=== PATIENT | male | born 1955 | race Caucasian/White ===

== ENCOUNTER 2024-12-18 07:30 | Outpatient (CLI) | payer MEDICARE, SELFPAY ==
--- OUTSIDE RECORDS SUMMARY | 2024-12-18 07:36 | XMS_ITS | CONTINUITY OF CARE DOCUMENT ---
Author Name claudia taylor Address Unknown Organization [place] [facility] Address [address] [facility] [place] [address] Phone [phone] Care Team Providers Care Datacap Developer Name Role Phone Krystyna GARCIA, Ruben Crawford Unavailable [phone] TARI GARCIA, GUZMAN Unavailable [phone] TRAI GARCIA, GUZMAN Unavailable [phone] PROBLEMS Condition Status Date Provider Notes Cardiology examination active Ruben hernandez MD Atrial fib paroxysmal active Ruben colin MD Shortness of breath active Ruben Greenwood MD COPD active Ruben Greenwood MD Cardiology examination active Ruben hernanedz MD Hypercholesterolemia active Ruben quesada MD DM - type 2 active Ruben Greenwood MD CHF - systolic active Ruben Greenwood MD HTN essential active Nelsy Scott Tobacco abuse- hx of active Ruben quesada MD Pleural effusion active Ruben Greenwood MD CHF - diastolic active Ruben Greenwood MD ENCOUNTERS Date Type Provider Location Encounter Diag nosis - In-person encounter Office Visit Ruben Greenwood MD [place] [facility] Cardiology examination - In-person encounter Office Visit Ruben Greenwood MD [facility] Hypercholesterolemia - In-person encounter Office Visit Ruben Greenwood MD [place] [facility] - In-person encounter Office Visit Ruben Greenwood MD [facility] CHF - systolicDM - type 2 - In-person encounter Office Visit Ruben Greenwood MD [facility] HTN essential - In-person encounter Office Visit Ruben Greenwood MD [place] [facility] - In-person encounter Office Visit Ruben Greenwood MD [facility] - In-person encounter Office Visit Ruben Greenwood MD [facility] - In-person encounter Office Visit Ruben Greenwood MD [place] [facility] Cardiology examinationCHF - diastolicPleural effusionAtrial fib paroxysmalShortness of breathTobacco abuse- hx ofCOPD VITAL SIGNS Date Observation Value Provider Body Mass Index (Ratio) 25.20 kg/m2 John Greenwood MD blood pressure, diastolic 77 mm[Hg] Mel yanceystephonerci Curry blood pressure, systolic 135 mm[Hg] Melbc stephoneric Curry oxygen saturation, oximetry 95 % Rafaelaeric Curry respiratory rate E&M 14 /min Rafaelaeric Curry pulse rate 77 /min Rafaelaeric Curry weight E&M 191 [lb_av] Rafaela Patricio height E&M 73 [in_i] Rafaelaeric Curry blood pressure, cuff size regular An kannan Patricio Body Mass Index (Ratio) 25.20 kg/m2 [facility] Inhaled O2 2 L/min Claribel crawford RN blood pressure, cuff size regular Au betty Mccoy RN blood pressure, diastolic 78 mm[Hg] Au betty Mccoy RN blood pressure, systolic 132 mm[Hg] Jeff salvador Nadine RN oxygen saturation, oximetry 94 % Claribel Nadine RN respiratory rate E&M 20 /min Claribel Nadine RN pulse rate 57 /min Claribelsalvador Ludwighilda crawford RN weight E&M 191 [lb_av] Claribel Janimelisahilda crawford RN height E&M 73 [in_i] Claribelsalvador Ludwighilda crawford RN Body Mass Index (Ratio) 25.20 kg/m2 Larry Iorfida blood pressure, cuff size regular [facility] blood pressure, diastolic 78 mm[Hg] [facility] blood pressure, systolic 125 mm[Hg] [facility] Inhaled O2 2 L/min [facility] oxygen saturation, oximetry 87 % [facility] respiratory rate E&M 14 /min Trish M iller pulse rate 91 /min [facility] weight E&M 191 [lb_av] [facility] height E&M 73 [in_i] [facility] Body Mass Index (Ratio) 25.33 kg/m2 John Greenwood MD blood pressure, diastolic 85 mm[Hg] Li nkLogic blood pressure, systolic 133 mm[Hg] Ashley kLogic blood pressure, cuff size regular [facility] blood pressure, diastolic 85 mm[Hg] [facility] blood pressure, systolic 133 mm[Hg] [facility], o[facility] 85 % [facility] respiratory rate E&M 16 /min Trish M iller pulse rate 66 /min [facility] weight E&M 192 [lb_av] [facility] height E&M 73 [in_i] [facility] Body Mass Index (Ratio) 25.33 kg/m2 John Greenwood MD blood pressure, cuff size regular Ke rri Gruenenfelder blood pressure, diastolic 80 mm[Hg] Ke rri Gruenenfelder blood pressure, systolic 126 mm[Hg] Ker ri Gruenenfelder Inhaled O2 2 L/min Selam Gruenenfe lder oxygen saturation, oximetry 87 % Selam Gruenenfelder respiratory rate E&M 16 /min Selam G ruenenfelder pulse rate 114 /min Selam Gruenenfe lder weight E&M 192 [lb_av] Selam Gruenenfe lder height E&M 73 [in_i] Selam Gruenenfe lder Body Mass Index (Ratio) 25.06 kg/m2 John Greenwood MD blood pressure, diastolic 94 mm[Hg] Ke rri Gruenenfelder blood pressure, systolic 145 mm[Hg] Ker ri Gruenenfelder blood pressure, cuff size large Ke rri Gruenenfelder Inhaled O2 2 L/min Selam Gruenenfe lder oxygen saturation, oximetry 93 % Selam Gruenenfelder respiratory rate E&M 16 /min Selam G ruenenfelder pulse rate 107 /min Selam Gruenenfe lder weight E&M 190 [lb_av] Selam Gruenenfe lder height E&M 73 [in_i] Selam Gruenenfe lder Body Mass Index (Ratio) 24.67 kg/m2 John Greenwood MD blood pressure, diastolic 110 mm[Hg] [facility] blood pressure, systolic 160 mm[Hg] Sta wade Pathak pulse rate 56 /min Luz Pathak oxygen saturation, oximetry 91 % Luz Pathak respiratory rate E&M 16 /min Luz pappass weight E&M 187 [lb_av] Luz Pathak Inhaled O2 2 L/min Luz Pathak height E&M 73 [in_i] Luz Lawson Body Mass Index (Ratio) 23.40 kg/m2 John Greenwood MD blood pressure, diastolic 56 mm[Hg] Li nkLog blood pressure, systolic 125 mm[Hg] Ashley [facility] blood pressure, cuff size large Duncan farris [place] blood pressure, diastolic 56 mm[Hg] Duncan farris [place] blood pressure, systolic 125 mm[Hg] [facility] oxygen saturation, oximetry 90 % [facility] respiratory rate E&M 14 /min [facility] pulse rate 62 /min [facility] weight E&M 177.4 [lb_av] [facility] height E&M 73 [in_i] [facility] Body Mass Index (Ratio) 22.69 kg/m2 John Greenwood MD blood pressure, cuff size large Ke rri Gruenenfdisha blood pressure, diastolic 80 mm[Hg] Ke rri Gruenenfeldnathan blood pressure, systolic 142 mm[Hg] Fanta ri Phoebe Inhaled O2 2 L/min Selam Rubén lder oxygen saturation, oximetry 94 % Selam Elizabethnfdisha respiratory rate E&M 18 /min Selam song pulse rate 74 /min Selam Tadeonearsalan lder weight E&M 172 [lb_av] Selam Piedranenfe lder height E&M 73 [in_i] Selam Johnsonarsalan lder ALLERGIES Allergy Name Onset Date Reaction Criticality Status METFORMIN syncopy High Criticality active LISINOPRIL angioedemaallerg ic to esequiel lisinopril caused angioedema High Criticality active PCN High Criticality active HISTORY OF MEDICATION USE Medication Status Instructions Dates Provider Indications Com ments simvastatin 40 mg tablet active TAKE 1 TABLET BY MOUTH DAILY Cris Rushing magnesium oxide 400 mg magnesium tablet active Take 1 tablet by mouth twice a day Ruben Greenwood MD furosemide 40 mg tablet active TAKE 1 TABLET BY MOUTH EVERY DAY Brigitte Little metoprolol tartrate 37.5 mg tablet active TAKE 1 TABLET BY MOUTH TWICE DAILY Brigitte Little Kyelrxes-KJ-xjt vexian/apixaban capsule active Claribel Mccoy RN amlodipine 5 mg tablet active TAKE 1 TABLET BY MOUTH EVERY DAY Claribel Mccoy RN Breztri Aerosphere 160-9-4.8 mcg/actuation HFA aerosol inhaler active INHALE 2 PUFFS BY MOUTH TWICE A DAY Claribel Mccoy RN niacin 500 mg tablet active TAKE 1 TABLET BY MOUTH EVERY NIGHT AT BEDTIME Claribel Mccoy RN simvastatin 40 mg tablet completed Take 1 tablet by mouth once a day - Cris Rushing lisinopril 2.5 mg tablet completed Take 1 tablet by mouth once a day - Ruben Greenwood MD furosemide 40 mg tablet completed Take 1 tablet by mouth once a day - Brigitte Little Anoro Ellipta 62.5-25 mcg/actuation blister with device active Ruben Greenwood MD Eliquis 5 mg tablet completed Take 1 tablet by mouth twice a day For AFib - Claribel Mccoy RN OneTouch Delica Plus Lancet 33 gauge 33 gauge completed USE TO TEST BLOOD SUGAR ONCE DAILY - Ruben Greenwood MD metoprolol tartrate 37.5 mg tablet completed Take 1 tablet by mouth twice a day - Toridipak Sideny Stimulant Laxative Plus 8.6-50 mg tablet completed TAKE 2 TABLETS BY MOUTH EVERY NIGHT NEEDED FOR CONSTIPATION - Ruben Greenwood MD Eliquis 5 mg tablet completed - Ruben Greenwood MD furosemide 40 mg tablet completed TAKE 1 TABLET BY MOUTH EVERY DAY - Selam Sandhu OneTouch Ultra Test strip completed TEST DAILY - Ruben Greenwood MD oxycodone 5 mg tablet completed - Ruben Greenwood MD albuterol sulfate 90 mcg/actuation HFA aerosol inhaler completed - Ruben Greenwood MD simvastatin 40 mg tablet completed TAKE 1 TABLET BY MOUTH DAILY - Selam Sandhu meloxicam 7.5 mg tablet completed - Ruben Greenwood MD sildenafil 100 mg tablet completed - Ruben Greenwood MD hydrocodone-esequiel taminophen 10-325 mg tablet completed TAKE 1 TABLET BY MOUTH EVERY 4-6 HOURS NEEDED FOR PAIN - Ruben Greenwood MD amlodipine 5 mg tablet completed - Ruben Greenwood MD clopidogrel 75 mg tablet completed - Ruben Greenwood MD SOCIAL HISTORY Date Observation Value Provider smoking, year quit 2021 Ruben Greenwood MD number of years as a smoker 50 a Ruben Greenwood MD smoking history, tot al pack/day 1 Ruben Greenwood MD cigarette use yes Ruben colin MD smoking status Former smoker Ruben almanza MD smoking, year quit 2021 Ruben Greenwood MD number of years as a smoker 50 a Ruben Greenwood MD smoking history, tot al pack/day 1 Ruben Greenwood MD cigarette use yes Ruben colin MD smoking status Former smoker Ruben almanza MD smoking, year quit 2021 Trish fry number of years as a smoker 50 a Trish Roland smoking history, tot al pack/day 1 [facility] cigarette use yes [facility] smoking status Former smoker Trish Roland social history reviewed E&M revi ewed - no changes required Ruben Greenwood MD social history E&M S moking History: Ken aceves is a former smoker. Ruben Greenwood MD smoking status Former smoker Trish Roland social history E&M S moking History: Ken aceves is a former smoker. Ruben Greenwood MD social history reviewed E&M revi ewed - no changes required Ruben Greenwood MD smoking, year quit 2021 Selam Duncanvernon fatima number of years as a smoker 50 a Selam Phoebe smoking history, tot al pack/day 1 Selam Phoebe cigarette use yes Selam Holly gauthier smoking status Former smoker Selam Duncantyrone banegas social history reviewed E&M revi ewed - no changes required Ruben Greenwood MD social history E&M S moking History: Ken aceves is a former smoker. Ruben Greenwood MD smoking, year quit 2021 Selam Diego kushal number of years as a smoker 50 a Selam Duncannikki smoking history, tot al pack/day 1 Selam Phoebe cigarette use yes Selam gauthier smoking status Former smoker Selam Johnson bassam smoking, year quit 2021 Luz Barron is number of years as a smoker 50 a Luz Pathak smoking history, tot al pack/day 1 Luz Pathak cigarette use yes Luz Pathak smoking status Former smoker Luz Pathak social history E&M S moking History: P yola is a former smoker. Ruben Greenwood MD social history reviewed E&M revi ewed - no changes required Ruben Greenwood MD smoking history, tot al pack/day 1 Alisha Loera cigarette use yes Alisha Loera smoking status Former smoker Alisha Loera number of grandchildren Ruben Greenwood MD social history E&M S moking History: Ken aceves is a former smoker. Ruben Greenwood MD social history reviewed E&M revi ewed - no changes required Ruben Greenwood MD number of years as a smoker 50 a Selam Phoebe smoking history, tot al pack/day 3 ppd Selamshanika Sandhu smoking, year quit 2021 Selam Duncanvernon fatima cigarette use yes Selam Duncanchidi gauthier smoking status Former smoker Selam Johnson bassam INSURANCE PROVIDERS Payer name Policy type / Coverage type [place] red republican ID [facility] Other [facility] Other [employer] [address] (HMO POS) Medicare [id number] ADVANCE DIRECTIVES Name Date DISCUSSED - NO DECISION MADE TREATMENT PLAN Date Name Performer [id number],C,H is LV EF was 45-50%. H is updated medication list for this problem includes: Lisinopril 2.5 Mg Tablet (Lisinopril) ..... Take 1 tablet by mouth once a day Furosemide 40 Mg Tablet (Furosemide) ..... Take 1 tablet by mouth once a day Metoprolol Tartrate 37.5 Mg Tablet (Metoprolol tartrate) ..... Take 1 tablet by mouth twice a day CONCLUSIONS: 1 . Sledom premature ventricular contractions. Septal `bounce` consistent with IVCD or bundle branch block. Normal left v entricular systolic function. Normal left ventricular size. Normal left ventricular wall thickness. Mitral inflow Doppler d emonstrates pseudonormal pattern consistent with diastolic dysfunction. E/E': 7.8 Left ventricular ejection fraction is m easured at 50 %. 2 . Moderate enlargement of right ventricle. 3 . There is non-specific thickening of the mitral valve leaflets. Mild mitral valve regurgitation. E lectronically signed by Ruben Greenwood MD on 03/01/2022 at 11:39 AM Ruben Greenwood MD [id number],S,E cho CONCLUSIONS: 1 . Sledom premature ventricular contractions. Septal `bounce` consistent with IVCD or bundle branch block. Normal left v entricular systolic function. Normal left ventricular size. Normal left ventricular wall thickness. Mitral inflow Doppler d emonstrates pseudonormal pattern consistent with diastolic dysfunction. E/E': 7.8 Left ventricular ejection fraction is m easured at 50 %. 2 . Moderate enlargement of right ventricle. 3 . There is non-specific thickening of the mitral valve leaflets. Mild mitral valve regurgitation. E lectronically signed by Ruben Greenwood MD on 03/01/2022 at 11:39 AM Ruben Greenwood MD [id number],S, S topped smoking N eeds PFTs November 12, 2022 H ad PFTs done o 2 sats okay on 2L, on 6 min walk Conclusions: Although there is severe airway obstruction and a diffusion defect suggesting emphysema, the absence of overinflation i ndicates a concurrent restrictive process which may account for the diffusion defect. The response to bronchodilators indicates a reversible c omponent. P ulmonary Function Diagnosis: S evere Obstructive Airways Disease S evere Diffusion Defect Ruben Greenwood MD [id number],C, H is updated medication list for this problem includes: Furosemide 40 Mg Tablet (Furosemide) ..... Take 1 tablet by mouth once a day Metoprolol Tartrate 37.5 Mg Tablet (Metoprolol tartrate) ..... Take 1 tablet by mouth twice a day CONCLUSIONS: 1 . Sledom premature ventricular contractions. Septal `bounce` consistent with IVCD or bundle branch block. Normal left v entricular systolic function. Normal left ventricular size. Normal left ventricular wall thickness. Mitral inflow Doppler d emonstrates pseudonormal pattern consistent with diastolic dysfunction. E/E': 7.8 Left ventricular ejection fraction is m easured at 50 %. 2 . Moderate enlargement of right ventricle. 3 . There is non-specific thickening of the mitral valve leaflets. Mild mitral valve regurgitation. E lectronically signed by Ruben Greenwood MD on 03/01/2022 at 11:39 AM Ruben Greenwood MD [id number],C, R elzbietain on eliquis 5 BID remains in AFib, failed cardioversion. Currently needs to remain on anticoagulation. February 17, 2022 N SR on EKG today May 20, 2022 A FIB on ekg today, no bleeding on eliquis, says he had to pay $400, has to pay $40 per bottle usually August 13, 2022 R emains on Eliquis no bleeding issues. Currently in AFIB N ovember 2022 C umang in SR. Will see if he can get Librexia-AF. Will give him samples of Eliquis for now. Ruben Greenwood MD [id number],C, H emothorax secondary to thoracentesis, pleural effusion, bilateral, right greater than left. VATS procedure 12/01/21. Hx of COPD, 2-3ppd smoking 50 yrs. Has not f/u with pulmonary will need to schedule May 20, 2022 o n home O2, June 10, 2023 R libia on home O2. Ruben Greenwood MD [id number],C, H is updated medication list for this problem includes: Furosemide 40 Mg Tablet (Furosemide) ..... Take 1 tablet by mouth once a day Metoprolol Tartrate 37.5 Mg Tablet (Metoprolol tartrate) ..... Take 1 tablet by mouth twice a day BP today: 133/85 P rior BP: 126/80 (11/12/2022) Ruben Greenwood MD [id number],C, N eeds PFTs done since he is on home O2. November 12, 2022 S josé miguel pulmonary, started on new inahler, Luis Felipe, pending CT for lung cance4 r Ruben Greenwood MD [id number],C,D iscussion of benefits for remote patient monitoring took place. Patient gives consent for remote monitoring of physiologic parameters including, but not limited to, weight, blood pressure, pulse oximetry, respiratory flow rate. B P today: 126/80 P rior BP: 145/94 (08/13/2022) His updated medication list for this problem includes: Furosemide 40 Mg Tablet (Furosemide) ..... Take 1 tablet by mouth every day Metoprolol Tartrate 37.5 Mg Tablet (Metoprolol tartrate) ..... Take 1 tablet by mouth twice a day Ruben Greenwood MD [id number],C, H emothorax secondary to thoracentesis, pleural effusion, bilateral, right greater than left. VATS procedure 12/01/21. Hx of COPD, 2-3ppd smoking 50 yrs. Has not f/u with pulmonary will need to schedule May 20, 2022 o n home O2, Ruben Greenwood MD [id number],S,C ONCLUSIONS: 1 . Sledom premature ventricular contractions. Septal `bounce` consistent with IVCD or bundle branch block. Normal left v entricular systolic function. Normal left ventricular size. Normal left ventricular wall thickness. Mitral inflow Doppler d emonstrates pseudonormal pattern consistent with diastolic dysfunction. E/E': 7.8 Left ventricular ejection fraction is m easured at 50 %. 2 . Moderate enlargement of right ventricle. 3 . There is non-specific thickening of the mitral valve leaflets. Mild mitral valve regurgitation. E lectronically signed by Ruben Greenwood MD on 03/01/2022 at 11:39 AM Ruben Greenwood MD [id number],S, N eeds PFTs done since he is on home O2. November 12, 2022 S aw pulmonary, started on new Luis Felipe daily, pending CT for lung cance4 r Ruben Greenwood MD [id number],C, S topped smoking N eeds PFTs November 12, 2022 H ad PFTs done o 2 sats okay on 2L, on 6 min walk Conclusions: Although there is severe airway obstruction and a diffusion defect suggesting emphysema, the absence of overinflation i ndicates a concurrent restrictive process which may account for the diffusion defect. The response to bronchodilators indicates a reversible c omponent. P ulmonary Function Diagnosis: S evere Obstructive Airways Disease S evere Diffusion Defect Ruben Greenwood MD [id number],C, H emothorax secondary to thoracentesis, pleural effusion, bilateral, right greater than left. VATS procedure 12/01/21. Hx of COPD, 2-3ppd smoking 50 yrs. Has not f/u with pulmonary will need to schedule May 20, 2022 o n home O2, Ruben Greenwood MD [id number],C, M ost likely related to his pleural effusion and hx of smoking 3ppd x50yrs. Currently has stopped for few weeks. Requires home O2. bora patel echo May 20, 2022 s ees pul[facility]ary at [facility] CONCLUSIONS: 1 . Sledom premature ventricular contractions. Septal `bounce` consistent with IVCD or bundle branch block. Normal left v entricular systolic function. Normal left ventricular size. Normal left ventricular wall thickness. Mitral inflow Doppler d emonstrates pseudonormal pattern consistent with diastolic dysfunction. E/E': 7.8 Left ventricular ejection fraction is m easured at 50 %. 2 . Moderate enlargement of right ventricle. 3 . There is non-specific thickening of the mitral valve leaflets. Mild mitral valve regurgitation. & #13; E lectronically signed by Ruben Greenwood MD on 03/01/2022 at 11:39 AM J anuary 2022 C dianek PFTs Ruben Greenwood MD [id number],C, R emain on eliquis 5 BID remains in AFib, failed cardioversion. Currently needs to remain on anticoagulation. February 17, 2022 N SR on EKG today May 20, 2022 A FIB on ekg today, no bleeding on eliquis, says he had to pay $400, has to pay $40 per bottle usually August 13, 2022 R emains on Eliquis no bleeding issues. Currently in AFIB Ruben Greenwood MD [id number],S,S topped smoking N eeds PFTs Ruben Greenwood MD [id number],C, N eeds PFTs done since he is on home O2. Ruben Greenwood MD [id number],C,D iscussion of benefits for remote patient monitoring took place. Patient gives consent for remote monitoring of physiologic parameters including, but not limited to, weight, blood pressure, pulse oximetry, respiratory flow rate. a llergic to esequiel lisinopril caused angioedema Ruben Greenwood MD [id number],C, M ost likely related to his pleural effusion and hx of smoking 3ppd x50yrs. Currently has stopped for few weeks. Requires home O2. bora patel echo May 20, 2022 s jenna pulomonary at [facility] CONCLUSIONS: 1 . Sledom premature ventricular contractions. Septal `bounce` consistent with IVCD or bundle branch block. Normal left v entricular systolic function. Normal left ventricular size. Normal left ventricular wall thickness. Mitral inflow Doppler d emonstrates pseudonormal pattern consistent with diastolic dysfunction. E/E': 7.8 Left ventricular ejection fraction is m easured at 50 %. 2 . Moderate enlargement of right ventricle. 3 . There is non-specific thickening of the mitral valve leaflets. Mild mitral valve regurgitation. & #13; E lectronically signed by Ruben Greenwood MD on 03/01/2022 at 11:39 AM Ruben Greenwood MD [id number],C, H emothorax secondary to thoracentesis, pleural effusion, bilateral, right greater than left. VATS procedure 12/01/21. Hx of COPD, 2-3ppd smoking 50 yrs. Has not f/u with pulmonary will need to schedule May 20, 2022 o n home O2, Ruben Greenwood MD [id number],C, allergic to esequiel lisinopril caused angioedema Ruben Greenwood MD [id number],C, R emain on eliquis 5 BID remains in AFib, failed cardioversion. Currently needs to remain on anticoagulation. February 17, 2022 N SR on EKG today May 20, 2022 A FIB on ekg today, no bleeding on eliquis, says he had to pay $400, has to pay $40 per bottle usually Ruben Greenwood MD [id number],C,C ONCLUSIONS: 1 . Sledom premature ventricular contractions. Septal `bounce` consistent with IVCD or bundle branch block. Normal left v entricular systolic function. Normal left ventricular size. Normal left ventricular wall thickness. Mitral inflow Doppler d emonstrates pseudonormal pattern consistent with diastolic dysfunction. E/E': 7.8 Left ventricular ejection fraction is m easured at 50 %. 2 . Moderate enlargement of right ventricle. 3 . There is non-specific thickening of the mitral valve leaflets. Mild mitral valve regurgitation. E lectronically signed by Ruben Greenwood MD on 03/01/2022 at 11:39 AM Ruben Greenwood MD [id number],S,check echo Sa richy Greenwood MD [id number],C,a llergic to esequiel lisinopril caused angioedema N ormal LV function on echo. EF 55%, mild LAE, mild RUIZ, no significant MR or TR. Ruben Greenwodo MD [id number],C, R emain on eliquis 5 BID remains in AFib, failed cardioversion. Currently needs to remain on anticoagulation. February 17, 2022 N SR on EKG today Ruben Greenwood MD [id number],C, H emothorax secondary to thoracentesis, pleural effusion, bilateral, right greater than left. VATS procedure 12/01/21. Hx of COPD, 2-3ppd smoking 50 yrs. Has not f/u with pulmonary will need to schedule Ruben Greenwood MD [id number],C, N eeds PFTs done since he is on home O2. Ruben Greenwood MD [id number],C, M ost likely related to his pleural effusion and hx of smoking 3ppd x50yrs. Currently has stopped for few weeks. Requires home O2. c heck echo Ruben Greenwood MD [id number],S,N eeds PFTs done since he is on home O2. O rders: 9 9205 HIGH 60-74 min (CPT-46988) F VC - 77875 (97764) F RC - 86575 (02848) D LCO - 14679 (04996) A mbulatory Oximetry (CPT-51055) [address] test (CPT-39127) C XR- PA/Lat (CPT-17181) Ruben Greenwood MD [id number],S,R emain on eliquis 5 BID remains in AFib, failed cardioversion. Currently needs to remain on anticoagulation. Ruben Greenwood MD [id number],S,M ost likely related to his pleural effusion and hx of smoking 3ppd x50yrs. Currently has stopped for few weeks. Requires home O2. Ruben Greenwood MD [id number],C,N ormal LV function on echo. EF 55%, mild LAE, mild RUIZ, no significant MR or TR. Ruben Greenwood MD [id number],C,H emothorax secondary to thoracentesis, pleural effusion, bilateral, right greater than left. VATS procedure 12/01/21. Hx of COPD, 2-3ppd smoking 50 yrs. Ruben Greenwood MD Cardiology:CONCLUSIO NS: 1 . Technically difficult study. Unable to determine segmental wall motion abnormalities. Hyperdynamic left ventricular f unction. Normal left ventricular systolic function. Normal left ventricular size. Normal left ventricular wall thickness. Normal l eft ventricular diastolic function. E/E': 7.3. Left ventricular ejection fraction is measured at 70 %. 2 . Normal right ventricular size. Normal right ventricular systolic function. 3 . Normal appearing tricuspid valve leaflets. There is mild tricuspid regurgitation. IVC is normal in size with normal r espiratory response. Estimated peak pulmonary artery systolic pressure is 24.0 mmHg. Unable to adequately assess the R VSP. E lectronically signed by Ruben Greenwood MD on 02/13/2024 at 3:27 PM Ruben Greenwood MD Cardiology: H emothorax secondary to thoracentesis, pleural effusion, bilateral, right greater than left. VATS procedure 12/01/21. Hx of COPD, 2-3ppd smoking 50 yrs. Has not f/u with pulmonary will need to schedule May 20, 2022 o n home O2, June 10, 2023 R emains on home O2. July 06, 2023 R emains on home O2. J [address] scan done, seeing DR CONNOR Greenwood MD Cardiology: R emain on eliquis 5 BID remains in AFib, failed cardioversion. Currently needs to remain on anticoagulation. February 17, 2022 N SR on EKG today May 20, 2022 A FIB on ekg today, no bleeding on eliquis, says he had to pay $400, has to pay $40 per bottle usually August 13, 2022 R emains on Eliquis no bleeding issues. Currently in AFIB June 10, 2023 Bora heck in SR. Will see if he can get Librexia-AF. Will give him samples of Eliquis for now. July 06, 2023 I n SR today. Not able to get Eliquis. Needs to enroll in Librexa January 06, 2024 N SR enrolled in librexia, no bleeding SR with PVC noted on EKG. most likely need mag Oxide. 400 BID This visit has been a part of the consistent, comprehensive, and ongoing management of the chronic medical condition(s) listed above for the patient. enrolled in librexia, no bleeding Ruben Greenwood MD Cardiology: N eeds PFTs done since he is on home O2. November 12, 2022 S aw pulmonary, started on new joaquínhler, Simonai, pending CT for lung cance4 r July 06, [address] Simental July 06, 2024 O n home O2 2L Ruben Greenwood MD Cardiology:CONCLUSIO NS: 1 . Technically difficult study. Unable to determine segmental wall motion abnormalities. Hyperdynamic left ventricular f unction. Normal left ventricular systolic function. Normal left ventricular size. Normal left ventricular wall thickness. Normal l eft ventricular diastolic function. E/E': 7.3. Left ventricular ejection fraction is measured at 70 %. 2 . Normal right ventricular size. Normal right ventricular systolic function. 3 . Normal appearing tricuspid valve leaflets. There is mild tricuspid regurgitation. IVC is normal in size with normal r espiratory response. Estimated peak pulmonary artery systolic pressure is 24.0 mmHg. Unable to adequately assess the R VS T his visit has been a part of the consistent, comprehensive, and ongoing management of the chronic medical condition(s) listed above for the patient. . Ruben Greenwood MD Cardiology:Most rece nt shows 70% H is updated medication list for this problem includes: Furosemide 40 Mg Tablet (Furosemide) ..... Take 1 tablet by mouth every day Metoprolol Tartrate 37.5 Mg Tablet (Metoprolol tartrate) ..... Take 1 tablet by mouth twice daily Amlodipine 5 Mg Tablet (Amlodipine) ..... Take 1 tablet by mouth every day T his visit has been a part of the consistent, comprehensive, and ongoing management of the chronic medical condition(s) listed above for the patient. Ruben Greenwood MD Cardiology: H is updated medication list for this problem includes: Niacin 500 Mg Tablet (Niacin) ..... Take 1 tablet by mouth every night at bedtime Simvastatin 40 Mg Tablet (Simvastatin) ..... Take 1 tablet by mouth once a day Ruben Greenwood MD Cardiology: M ost likely related to his pleural effusion and hx of smoking 3ppd x50yrs. Currently has stopped for few weeks. Requires home O2. c heck echo May 20, 2022 s ees pulomonary at [facility] CONCLUSIONS: 1 . Sledom premature ventricular contractions. Septal `bounce` consistent with IVCD or bundle branch block. Normal left v entricular systolic function. Normal left ventricular size. Normal left ventricular wall thickness. Mitral inflow Doppler d emonstrates pseudonormal pattern consistent with diastolic dysfunction. E/E': 7.8 Left ventricular ejection fraction is m easured at 50 %. 2 . Moderate enlargement of right ventricle. 3 . There is non-specific thickening of the mitral valve leaflets. Mild mitral valve regurgitation. E lectronically signed by Ruben Greenwood MD on 03/01/2022 at 11:39 AM J anuary 2022 C heck PFTs J une [address] scan done, seeing DR CONNOR Greenwood MD Cardiology: H emothorax secondary to thoracentesis, pleural effusion, bilateral, right greater than left. VATS procedure 12/01/21. Hx of COPD, 2-3ppd smoking 50 yrs. Has not f/u with pulmonary will need to schedule May 20, 2022 o n home O2, June 10, 2023 R emains on home O2. July 06, 2023 R emains on home O2. J une [address] scan done, seeing DR CONNOR Greenwood MD Cardiology: H is updated medication list for this problem includes: Amlodipine 5 Mg Tablet (Amlodipine) ..... Take 1 tablet by mouth every day Furosemide 40 Mg Tablet (Furosemide) ..... Take 1 tablet by mouth once a day Metoprolol Tartrate 37.5 Mg Tablet (Metoprolol tartrate) ..... Take 1 tablet by mouth twice a day BP today: 132/78 P rior BP: 125/78 (07/06/2023) Ruben Greenwood MD Cardiology: Jaime ivan on eliquis 5 BID remains in AFib, failed cardioversion. Currently needs to remain on anticoagulation. February 17, 2022 N SR on EKG today May 20, 2022 A FIB on ekg today, no bleeding on eliquis, says he had to pay $400, has to pay $40 per bottle usually August 13, 2022 R emains on Eliquis no bleeding issues. Currently in AFIB June 10, 2023 C urrently in SR. Will see if he can get Librexia-AF. Will give him samples of Eliquis for now. July 06, 2023 I n SR today. Not able to get Eliquis. Needs to enroll in Librexa January 06, 2024 N SR enrolled in librexia, no bleeding Ruben Greenwood MD Cardiology: H is LV EF was 45-50%. C ONCLUSIONS: 1 . Sledom premature ventricular contractions. Septal `bounce` consistent with IVCD or bundle branch block. Normal left v entricular systolic function. Normal left ventricular size. Normal left ventricular wall thickness. Mitral inflow Doppler d emonstrates pseudonormal pattern consistent with diastolic dysfunction. E/E': 7.8 Left ventricular ejection fraction is m easured at 50 %. 2 . Moderate enlargement of right ventricle. 3 . There is non-specific thickening of the mitral valve leaflets. Mild mitral valve regurgitation. E lectronically signed by Ruben Greenwood MD on 03/01/2022 at 11:39 AM January 06, 2024 m ild CMP, will need to recheck echo since he has afib to see if decline in EF Ruben Greenwood MD Cardiology: H emothorax secondary to thoracentesis, pleural effusion, bilateral, right greater than left. VATS procedure 12/01/21. Hx of COPD, 2-3ppd smoking 50 yrs. Has not f/u with pulmonary will need to schedule May 20, 2022 o n home O2, June 10, 2023 R emains on home O2. July 06, 2023 R emains on home O2. Ruben Greenwood MD Cardiology: S topped smoking N eeds PFTs November 12, 2022 H ad PFTs done o 2 sats okay on 2L, on 6 min walk Conclusions: Although there is severe airway obstruction and a diffusion defect suggesting emphysema, the absence of overinflation i ndicates a concurrent restrictive process which may account for the diffusion defect. The response to bronchodilators indicates a reversible c omponent. P ulmonary Function Diagnosis: S evere Obstructive Airways Disease S evere Diffusion Defect July 06, 2023 N ot smoking Ruben Greenwood MD Cardiology: H is updated medication list for this problem includes: Furosemide 40 Mg Tablet (Furosemide) ..... Take 1 tablet by mouth once a day Metoprolol Tartrate 37.5 Mg Tablet (Metoprolol tartrate) ..... Take 1 tablet by mouth twice a day CONCLUSIONS: 1 . Sledom premature ventricular contractions. Septal `bounce` consistent with IVCD or bundle branch block. Normal left v entricular systolic function. Normal left ventricular size. Normal left ventricular wall thickness. Mitral inflow Doppler d emonstrates pseudonormal pattern consistent with diastolic dysfunction. E/E': 7.8 Left ventricular ejection fraction is m easured at 50 %. 2 . Moderate enlargement of right ventricle. 3 . There is non-specific thickening of the mitral valve leaflets. Mild mitral valve regurgitation. E lectronically signed by Ruben Greenwood MD on 03/01/2022 at 11:39 AM Ruben Greenwood MD Cardiology: R moncho on eliquis 5 BID remains in AFib, failed cardioversion. Currently needs to remain on anticoagulation. February 17, 2022 N SR on EKG today May 20, 2022 A FIB on ekg today, no bleeding on eliquis, says he had to pay $400, has to pay $40 per bottle usually August 13, 2022 R libia on Eliquis no bleeding issues. Currently in AFIB June 10, 2023 Bora heck in SR. Will see if he can get Librexia-AF. Will give him samples of Eliquis for now. July 06, 2023 I n SR today. Not able to get Eliquis. Needs to enroll in Librexa Ruben Greenwood MD Cardiology: N eeds PFTs done since he is on home O2. November 12, 2022 S aw pulmonary, started on Luis Felipe luna, pending CT for lung cance4 r July 06, [address] Connor Greenwood MD Cardiology:His LV EF was 45-50%. H is updated medication list for this problem includes: Lisinopril 2.5 Mg Tablet (Lisinopril) ..... Take 1 tablet by mouth once a day Furosemide 40 Mg Tablet (Furosemide) ..... Take 1 tablet by mouth once a day Metoprolol Tartrate 37.5 Mg Tablet (Metoprolol tartrate) ..... Take 1 tablet by mouth twice a day CONCLUSIONS: 1 . Sledom premature ventricular contractions. Septal `bounce` consistent with IVCD or bundle branch block. Normal left v entricular systolic function. Normal left ventricular size. Normal left ventricular wall thickness. Mitral inflow Doppler d emonstrates pseudonormal pattern consistent with diastolic dysfunction. E/E': 7.8 Left ventricular ejection fraction is m easured at 50 %. 2 . Moderate enlargement of right ventricle. 3 . There is non-specific thickening of the mitral valve leaflets. Mild mitral valve regurgitation. E lectronically signed by Ruben Greenwood MD on 03/01/2022 at 11:39 AM Ruben Greenwood MD Cardiology:Echo CONC LUSIONS: 1 . Sledom premature ventricular contractions. Septal `bounce` consistent with IVCD or bundle branch block. Normal left v entricular systolic function. Normal left ventricular size. Normal left ventricular wall thickness. Mitral inflow Doppler d emonstrates pseudonormal pattern consistent with diastolic dysfunction. E/E': 7.8 Left ventricular ejection fraction is m easured at 50 %. 2 . Moderate enlargement of right ventricle. 3 . There is non-specific thickening of the mitral valve leaflets. Mild mitral valve regurgitation. E lectronically signed by Ruben Greenwood MD on 03/01/2022 at 11:39 AM Ruben Greenwood MD Cardiology: S topped smoking N eeds PFTs November 12, 2022 H ad PFTs done o 2 sats okay on 2L, on 6 min walk Conclusions: Although there is severe airway obstruction and a diffusion defect suggesting emphysema, the absence of overinflation i ndicates a concurrent restrictive process which may account for the diffusion defect. The response to bronchodilators indicates a reversible c omponent. P ulmonary Function Diagnosis: S evere Obstructive Airways Disease S evere Diffusion Defect Ruben Greenwood MD Cardiology: H is updated medication list for this problem includes: Furosemide 40 Mg Tablet (Furosemide) ..... Take 1 tablet by mouth once a day Metoprolol Tartrate 37.5 Mg Tablet (Metoprolol tartrate) ..... Take 1 tablet by mouth twice a day CONCLUSIONS: 1 . Sledom premature ventricular contractions. Septal `bounce` consistent with IVCD or bundle branch block. Normal left v entricular systolic function. Normal left ventricular size. Normal left ventricular wall thickness. Mitral inflow Doppler d emonstrates pseudonormal pattern consistent with diastolic dysfunction. E/E': 7.8 Left ventricular ejection fraction is m easured at 50 %. 2 . Moderate enlargement of right ventricle. 3 . There is non-specific thickening of the mitral valve leaflets. Mild mitral valve regurgitation. E lectronically signed by Ruben Greenwood MD on 03/01/2022 at 11:39 AM Ruben Greenwood MD Cardiology: R moncho on eliquis 5 BID remains in AFib, failed cardioversion. Currently needs to remain on anticoagulation. February 17, 2022 N SR on EKG today May 20, 2022 A FIB on ekg today, no bleeding on eliquis, says he had to pay $400, has to pay $40 per bottle usually August 13, 2022 R emains on Eliquis no bleeding issues. Currently in AFIB June 10, 2023 Bora heck in SR. Will see if he can get Librexia-AF. Will give him samples of Eliquis for now. Ruben Greenwood MD Cardiology: H emothorax secondary to thoracentesis, pleural effusion, bilateral, right greater than left. VATS procedure 12/01/21. Hx of COPD, 2-3ppd smoking 50 yrs. Has not f/u with pulmonary will need to schedule May 20, 2022 o n home O2, June 10, 2023 R emains on home O2. Ruben Greenwood MD Cardiology: H is updated medication list for this problem includes: Furosemide 40 Mg Tablet (Furosemide) ..... Take 1 tablet by mouth once a day Metoprolol Tartrate 37.5 Mg Tablet (Metoprolol tartrate) ..... Take 1 tablet by mouth twice a day BP today: 133/85 P rior BP: 126/80 (11/12/2022) Ruben Greenwood MD Cardiology: N eeds PFTs done since he is on home O2. November 12, 2022 S aw pulmonary, started on new joaquínhler, Yaminiztri, pending CT for lung cance4 r Ruben Greenwood MD Cardiology:Discussio n of benefits for remote patient monitoring took place. Patient gives consent for remote monitoring of physiologic parameters including, but not limited to, weight, blood pressure, pulse oximetry, respiratory flow rate. B P today: 126/80 P rior BP: 145/94 (08/13/2022) His updated medication list for this problem includes: Furosemide 40 Mg Tablet (Furosemide) ..... Take 1 tablet by mouth every day Metoprolol Tartrate 37.5 Mg Tablet (Metoprolol tartrate) ..... Take 1 tablet by mouth twice a day Ruben Greenwood MD Cardiology: H emothorax secondary to thoracentesis, pleural effusion, bilateral, right greater than left. VATS procedure 12/01/21. Hx of COPD, 2-3ppd smoking 50 yrs. Has not f/u with pulmonary will need to schedule May 20, 2022 o n home O2, Ruben Greenwood MD Cardiology:CONCLUSIO NS: 1 . Sledom premature ventricular contractions. Septal `bounce` consistent with IVCD or bundle branch block. Normal left v entricular systolic function. Normal left ventricular size. Normal left ventricular wall thickness. Mitral inflow Doppler d emonstrates pseudonormal pattern consistent with diastolic dysfunction. E/E': 7.8 Left ventricular ejection fraction is measured at 50 %. 2 . Moderate enlargement of right ventricle. 3 . There is non-specific thickening of the mitral valve leaflets. Mild mitral valve regurgitation. E lectronically signed by Ruben Greenwood MD on 03/01/2022 at 11:39 AM Ruben Greenwood MD Cardiology: N eeds PFTs done since he is on home O2. November 12, 2022 S aw pulmonary, started on new jesúser, Yaminiztri, pending CT for lung cance4 r Ruben Greenwood MD Cardiology: S topped smoking N eeds PFTs November 12, 2022 H ad PFTs done o 2 sats okay on 2L, on 6 min walk Conclusions: Although there is severe airway obstruction and a diffusion defect suggesting emphysema, the absence of overinflation i ndicates a concurrent restrictive process which may account for the diffusion defect. The response to bronchodilators indicates a reversible c omponent. P ulmonary Function Diagnosis: S evere Obstructive Airways Disease S evere Diffusion Defect Ruben Greenwood MD Cardiology: H emothorax secondary to thoracentesis, pleural effusion, bilateral, right greater than left. VATS procedure 12/01/21. Hx of COPD, 2-3ppd smoking 50 yrs. Has not f/u with pulmonary will need to schedule May 20, 2022 o n home O2, Ruben Greenwood MD Cardiology: M ost likely related to his pleural effusion and hx of smoking 3ppd x50yrs. Currently has stopped for few weeks. Requires home O2. bora patel echo May 20, 2022 s jenna pulomonary at [facility] CONCLUSIONS: 1 . Sledom premature ventricular contractions. Septal `bounce` consistent with IVCD or bundle branch block. Normal left v entricular systolic function. Normal left ventricular size. Normal left ventricular wall thickness. Mitral inflow Doppler d emonstrates pseudonormal pattern consistent with diastolic dysfunction. E/E': 7.8 Left ventricular ejection fraction is m easured at 50 %. 2 . Moderate enlargement of right ventricle. 3 . There is non-specific thickening of the mitral valve leaflets. Mild mitral valve regurgitation. E lectronically signed by Ruben Greenwood MD on 03/01/2022 at 11:39 AM J anuary 2022 Bora patel PFTs Ruben Greenwood MD Cardiology: R moncho on eliquis 5 BID remains in AFib, failed cardioversion. Currently needs to remain on anticoagulation. February 17, 2022 N SR on EKG today May 20, 2022 A FIB on ekg today, no bleeding on eliquis, says he had to pay $400, has to pay $40 per bottle usually August 13, 2022 R emains on Eliquis no bleeding issues. Currently in AFIB Ruben Greenwood MD Cardiology:Stopped s moking N eeds PFTs Ruben Greenwood MD Cardiology: N eeds PFTs done since he is on home O2. Ruben Greenwood MD Cardiology:Discussio n of benefits for remote patient monitoring took place. Patient gives consent for remote monitoring of physiologic parameters including, but not limited to, weight, blood pressure, pulse oximetry, respiratory flow rate. a llergic to esequiel lisinopril caused angioedema Ruben Greenwood MD Cardiology: M ost likely related to his pleural effusion and hx of smoking 3ppd x50yrs. Currently has stopped for few weeks. [facility] s jenna pulomonary at [facility] CONCLUSIONS: 1 . Sledom premature ventricular contractions. Septal `bounce` consistent with IVCD or bundle branch block. Normal left v entricular systolic function. Normal left ventricular size. Normal left ventricular wall thickness. Mitral inflow Doppler d emonstrates pseudonormal pattern consistent with diastolic dysfunction. E/E': 7.8 Left ventricular ejection fraction is m easured at 50 %. 2 . Moderate enlargement of right ventricle. 3 . There is non-specific thickening of the mitral valve leaflets. Mild mitral valve regurgitation. E lectronically signed by Ruben Greenwood MD on 03/01/2022 at 11:39 AM Ruben Greenwood MD Cardiology: H emothorax secondary to thoracentesis, pleural effusion, bilateral, right greater than left. VATS procedure 12/01/21. Hx of COPD, 2-3ppd smoking 50 yrs. Has not f/u with pulmonary will need to schedule May 20, 2022 o n home O2, Ruben Greenwood MD Cardiology: allergic to esequiel lisinopril caused angioedema Ruben Greenwood MD Cardiology: Jaime ivan on eliquis 5 BID remains in AFib, failed cardioversion. Currently needs to remain on anticoagulation. February 17, 2022 N SR on EKG today May 20, 2022 A FIB on ekg today, no bleeding on eliquis, says he had to pay $400, has to pay $40 per bottle usually Ruben Greenwood MD Cardiology:CONCLUSIO NS: 1 . Sledom premature ventricular contractions. Septal `bounce` consistent with IVCD or bundle branch block. Normal left v entricular systolic function. Normal left ventricular size. Normal left ventricular wall thickness. Mitral inflow Doppler d emonstrates pseudonormal pattern consistent with diastolic dysfunction. E/E': 7.8 Left ventricular ejection fraction is measured at 50 %. 2 . Moderate enlargement of right ventricle. 3 . There is non-specific thickening of the mitral valve leaflets. Mild mitral valve regurgitation. E lectronically signed by Ruben Greenwood MD on 03/01/2022 at 11:39 AM Ruben Greenwood MD Cardiology:check echo Ruben Greenwood MD Cardiology:allergic to esequiel lisinopril caused angioedema N ormal LV function on echo. EF 55%, mild LAE, mild RUIZ, no significant MR or TR. Ruben Greenwood MD Cardiology: R moncho on eliquis 5 BID remains in AFib, failed cardioversion. Currently needs to remain on anticoagulation. February 17, 2022 N SR on EKG today Ruben Greenwood MD Cardiology: H emothorax secondary to thoracentesis, pleural effusion, bilateral, right greater than left. VATS procedure 12/01/21. Hx of COPD, 2-3ppd smoking 50 yrs. Has not f/u with pulmonary will need to schedule Ruben Greenwood MD Cardiology: N eeds PFTs done since he is on home O2. Ruben Greenwood MD Cardiology: M ost likely related to his pleural effusion and hx of smoking 3ppd x50yrs. Currently has stopped for few weeks. Requires home O2. c heck echo Ruben Greenwood MD Cardiology:Needs PFT s done since he is on home O2. O rders: 9 9205 HIGH 60-74 min (CPT-39631) F VC - 50199 (12444) F RC - 56532 (95420) D LCO - 46858 (48855) A mbulatory Oximetry (CPT-00844) 6 minute walk test (CPT-91356) C XR- PA/Lat (CPT-60948) Ruben Greenwood MD Cardiology:Remain on eliquis 5 BID remains in AFib, failed cardioversion. Currently needs to remain on anticoagulation. Ruben Greenwood MD Cardiology:Most like ly related to his pleural effusion and hx of smoking 3ppd x50yrs. Currently has stopped for few weeks. Requires home O2. Ruben Greenwood MD Cardiology:Normal LV function on echo. EF 55%, mild LAE, mild RUIZ, no significant MR or TR. Ruben Greenwood MD Cardiology:Hemothora x secondary to thoracentesis, pleural effusion, bilateral, right greater than left. VATS procedure 12/01/21. Hx of COPD, 2-3ppd smoking 50 yrs. Ruben Greenwood MD Date Name Monitor - Telemetry (Mobile Cardiac) MAGNESIUM COMPREHENSIVE METABO LIC PANEL, W/EGFR Holter Monitor 24 Hr Complete Echo EKG 6 minute walk test Ambulatory Oximetry DLCO - 87306 FRC - 35920 FVC - 16805 HEPATIC FUNCTION MONTANO EL LIPID PANEL RPM (remote patient monitoring) Holter Monitor 48 hr Complete Echo DLCO - 62766 FRC - 70725 FVC - 30997 Holter Monitor 48 hr CXR- PA/Lat 6 minute walk test Ambulatory Oximetry DLCO - 70312 FRC - 02658 FVC - 04715 HISTORY OF PROCEDURES Procedure Date Procedure Name Provider Procedure Notes S tatus Complex e/m visit add on Ruben Greenwood MD completed EKG Ruben Greenwood MD compl eted EKG Ruben Greenwood MD compl eted EKG Ruben Greenwood MD compl eted Ambulatory Oximetry Ruben Greenwood MD completed Spirometry Ruben Greenwood MD compl eted FVC / MVV with bronchodilator - 86392 Ruben Greenwood MD completed BLOOD COUNT HEMOGLOBIN Ruben Greenwood MD completed FRC - 90298 Ruben Greenwood MD comp leted SpO2 w/o 6min walk/titration Ruben Greenwood MD completed SVC - 82240 Ruben Greenwood MD comp leted DLCO - 78820 Ruben Greenwood MD com pleted 6 minute walk test Ruben Greenwood MD completed EKG Ruben Greenwood MD compl eted EKG Ruben Greenwood MD compl eted EKG Ruben Greenwood MD compl eted EKG Ruben Greenwood MD compl eted
--- OUTSIDE RECORDS SUMMARY | 2024-12-18 07:36 | XMS_ITS | Data Portability ---
Author Organization [place] - [facility], Main Office Address [address] [place] [address] Assessment Encounter Date Assessment Date Assessment LastModified by Organization Details LastModified Time 10/18/2023 10/18/2023 Assessment: Nicotine smoke: 1.5 ppd [id number] =78 pack years Severe COPD, declined pulm rehab LLL nodule IgE 1033 IU/mL CHF EF 50% Plan: The following were reviewed and explained to the patient: [facility] hospitalization 11/10/21 - 11/13/21 COPD exacerbation 6MW 09/09/22 2 Lpm exertional O2 PFT 09/09/22 FEV1 1.38 L (37%), BD 180 mL = 15%, TLC 6.15 L (80%), RV 3.71 L (145%), DLCO 22%, DLCO/VA 35% 2-D echocardiogram 02/25/22 EF 50%, mild MR, mod LAE, mod RVE, mild RUIZ Chest CT 11/11/21 R>L effusion with R>L atelectasis, cardiomegaly, pulm HTN Chest CT 11/24/22 4 mm LLL nodule, pulm HTN Lab data 11/11/22 elevated BNP, high IgE, multiple environmental allergies Oxygen saturation at rest: 1. 85% on room air 2. 88% on 1 Lpm by NC 3. 91% on 2 Lpm by NC Patient has COPD, hence the medical need for home oxygen therapy. Patient is benefiting from oxygen therapy as this helps increase the patient's activities of daily living. There is a continued need for oxygen as COPD is not reversible. The [place] [employer] recommends annual screening for lung cancer with low-dose computed tomography (LDCT) for people aged 50 to 80 years old who smoke or formerly smoked and have a 20-year or greater pack-year history. Screening is no longer discontinued even when a person has not smoked for [address] and PFT one week before return Continue albuterol HFA as needed. Continue Breztri 160/9/4.8 mcg 2 puffs BID. Gargle after use. The patient does not know how to accurately administer the inhalers. Today, the patient was shown how to take these medications. The proper technique for delivering these medications was instructed. The patient expressed a clear understanding and demonstrated back how to use these medications. Without the proper technique, the patient will not reap the benefits of these medications as the contents will not reach the lower airways as intended to be. Patient stated that his albuterol is only $6 and if the Breztri is at $45 or more, he will not fill the prescription. Pulmonary rehabilitation may be included in the management of patients with chronic obstructive pulmonary disease (COPD). For respiratory diseases different from COPD, there have been no formal statements regarding patient selection. Pulmonary rehabilitation consists of assessment, exercise, education, and emotional support. It covers the goals of rehabilitation, the techniques of breathing, the necessity of nicotine cessation, the strategies to deal with panic attacks, the rationale of pulmonary medications, and the importance of nutrition. As the patient learns to live with his pulmonary condition through exercise and education, the patient will regain confidence with his abilities and feel improvement in his overall quality of life. The patient's FEV1 is 37%. The patient was enrolled in pulmonary rehabilitation but declined. General concepts of pulmonary rehabilitation were explained. Adherence to therapy is advocated. Nonadherence may lead to treatment failure, further progression of the condition, and other complications. Hospitals admissions are often the result of individuals not taking prescription medications accurately. Alternatively, greater adherence to medication regimens have shown to lower rates of hospitalization and decrease total medical costs in patients with chronic medical conditions. Advocated influenza vaccination annually and pneumonia vaccination BABAK. Advocated weight loss through diet and exercise. Patient's ideal body weight according to height and gender is up to 185 lbs. Encouraged patient to adjust caloric intake to maintain/achieve ideal body weight, emphasizing on fruits, vegetables, whole grains, and fat-free or low-fat products. These include lean meats, poultry, fish, beans, eggs, and nuts and foods that are low in saturated fats, trans-fats, cholesterol, salt (sodium), and glycemic index. Stressed the importance of regular exercise up to the patient's capacity limits. In this case, we recommend regular (4 x a week or more) walking or other light activity. Patient to monitor BP daily and bring records to PCP for further management. Follow-up: 3 months, December 2023 Not available 10/18/2023 10:23:10 01/11/2024 01/11/2024 Assessment: Nicotine smoke: 1.5 ppd 5119-5706 =78 pack years Severe COPD, declined pulm rehab LLL nodule IgE 1033 IU/mL CHF EF 50% Plan: The following were reviewed and explained to the patient: [facility] hospitalization 11/10/21 - 11/13/21 COPD exacerbation 6MW 09/09/22 2 Lpm exertional O2 PFT 09/09/22 FEV1 1.38 L (37%), BD 180 mL = 15%, TLC 6.15 L (80%), RV 3.71 L (145%), DLCO 22%, DLCO/VA 35% PFT 01/10/24 FEV1 1.54 L (44%), BD 150 mL = 11%, TLC 7.78 L (115%), RV 3.57 L (139%), DLCO 29%, DLCO/VA 40% 2-D echocardiogram 02/25/22 EF 50%, mild MR, mod LAE, mod RVE, mild RUIZ Chest CT 11/11/21 R>L effusion with R>L atelectasis, cardiomegaly, pulm HTN Chest CT 11/24/22 4 mm LLL nodule, pulm HTN Chest CT 01/10/24 4 mm JUANA nodule, no LLL nodule Lab data 11/11/22 elevated BNP, high IgE, multiple environmental allergies Oxygen saturation at rest: 1. 86% on room air 2. 88% on 1 Lpm by NC 3. 92% on 2 Lpm by NC Patient has COPD, hence the medical need for home oxygen therapy. Patient is benefiting from oxygen therapy as this helps increase the patient's activities of daily living. There is a continued need for oxygen as COPD is not reversible. The [place] [employer] recommends annual screening for lung cancer with low-dose computed tomography (LDCT) for people aged 50 to 80 years old who smoke or formerly smoked and have a 20-year or greater pack-year history. Screening is no longer discontinued even when a person has not smoked for [address] and PFT one week before return Continue albuterol HFA as needed. Continue Breztri 160/9/4.8 mcg 2 puffs BID. Gargle after use. The patient does not know how to accurately administer the inhalers. Today, the patient was shown how to take these medications. The proper technique for delivering these medications was instructed. The patient expressed a clear understanding and demonstrated back how to use these medications. Without the proper technique, the patient will not reap the benefits of these medications as the contents will not reach the lower airways as intended to be. Patient stated that his albuterol is only $6 and if the Breztri is at $45 or more, he will not fill the prescription. Pulmonary rehabilitation may be included in the management of patients with chronic obstructive pulmonary disease (COPD). For respiratory diseases different from COPD, there have been no formal statements regarding patient selection. Pulmonary rehabilitation consists of assessment, exercise, education, and emotional support. It covers the goals of rehabilitation, the techniques of breathing, the necessity of nicotine cessation, the strategies to deal with panic attacks, the rationale of pulmonary medications, and the importance of nutrition. As the patient learns to live with his pulmonary condition through exercise and education, the patient will regain confidence with his abilities and feel improvement in his overall quality of life. The patient's FEV1 is 44%. The patient was enrolled in pulmonary rehabilitation but declined. General concepts of pulmonary rehabilitation were explained. Adherence to therapy is advocated. Nonadherence may lead to treatment failure, further progression of the condition, and other complications. Hospitals admissions are often the result of individuals not taking prescription medications accurately. Alternatively, greater adherence to medication regimens have shown to lower rates of hospitalization and decrease total medical costs in patients with chronic medical conditions. Advocated influenza vaccination annually and pneumonia vaccination BABAK. Advocated weight loss through diet and exercise. Patient's ideal body weight according to height and gender is up to 185 lbs. Encouraged patient to adjust caloric intake to maintain/achieve ideal body weight, emphasizing on fruits, vegetables, whole grains, and fat-free or low-fat products. These include lean meats, poultry, fish, beans, eggs, and nuts and foods that are low in saturated fats, trans-fats, cholesterol, salt (sodium), and glycemic index. Stressed the importance of regular exercise up to the patient's capacity limits. In this case, we recommend regular (4 x a week or more) walking or other light activity. Patient to monitor BP daily and bring records to PCP for further management. Follow-up: 1 year, December 2024 Not available 01/11/2024 10:09:39 Plan of Treatment Reminders Order Date Submit Date Provider Last Modified By Organization Details Last Modified Time Details Appointments Any 15 2024 07:30A Tawanda Simental MD Not available Not available Not available Lab glycohemo globin, total, blood 2024 025 [email or web address] [facility] (Lab), [address] [place], [address], 10/01/2024 13:34:52 microalbu min, urine 2024 025 [facility] (Lab), [address] [place], [address], 10/01/2024 13:34:53 CBC w/ auto diff [email or web address] [place] [address] (Lab), [address] [place], [address], 10/01/2024 13:34:52 TSH, serum or plasma 2024 025 [facility] (Lab), [address] [place], [address], 09/25/2024 04:50:03 T4, free, serum 2024 025 [email or web address] [facility] (Lab), [address] [place], [address], 10/01/2024 13:34:52 CBC w/ auto diff 2024 025 [facility] (Lab), [address] [place], [address], 09/25/2024 04:50:01 glycohemo globin, total, blood 2023 024 [facility] (Lab), [address] [place], [address], 03/26/2024 14:16:26 microalbu min, urine 2023 024 [facility] (Lab), [address] [place], [address], 03/26/2024 16:35:06 CBC w/ auto diff 2023 024 [facility] (Lab), [address] [place], [address], 03/26/2024 13:07:07 lipid panel, serum 2023 024 [facility] (Lab), [address] [place], [address], 03/26/2024 13:59:08 CMP, serum or plasma 2023 024 [facility] (Lab), [address] [place], [address], 03/26/2024 13:59:14 glycohemo globin, total, blood 2023 024 [facility] (Lab), [address] [place], [address], 09/26/2023 12:51:36 microalbu min, urine 2023 024 [facility] (Lab), [address] [place], [address], 09/26/2023 16:11:11 TSH, serum or plasma 2023 024 [facility] (Lab), [address] [place], [address], 09/26/2023 13:40:51 T4, free, serum 2023 024 [facility] (Lab), [address] [place], [address], 09/26/2023 13:11:32 CBC w/ auto diff 2023 024 [facility] (Lab), [address] [place], [address], 09/26/2023 11:42:27 lipid panel, serum 2023 024 [facility] (Lab), [address] [place], [address], 09/26/2023 14:21:47 CMP, serum or plasma 2023 024 [facility] (Lab), [address] [place], [address], 09/26/2023 14:21:53 Referral cardiolog ist referral 2024 025 [email or web address] Not available 10/25/2024 16:53:39 Procedures None recorded. Surgeries None recorded. Imaging LDCT, chest, for lung cancer screening - Nicotine smoke: 1.5 ppd 3401-2791 =78 pack years [email or web address] [facility] ([facility]), [address] [place], [address], 12/10/2024 11:02:09 LDCT, chest, for lung cancer screening - Nicotine smoke: 1.5 ppd 1603-6907 =78 pack years [address] [facility] ([facility]), [address] [place], [address], 12/27/2023 08:52:42 Medication Orders Breztri Aerospher e 160 mcg-9mcg- 4.8mcg/ac tuation HFA aerosol inhaler [email or web address] [place] [address] [id number], [address], [place], [id number], 09/24/2024 10:42:55 albuterol sulfate HFA 90 mcg/actua tion aerosol inhaler 2023 024 [id number], [address], [place], [id number], 01/11/2024 10:10:47 Breztri Aerospher e 160 mcg-9mcg- 4.8mcg/ac tuation HFA aerosol inhaler [email or web address] [place] [address] [id number], [place], [id number], 09/24/2024 10:42:55 albuterol sulfate HFA 90 mcg/actua tion aerosol inhaler 2023 024 [id number], [address], [place], [id number], 10/18/2023 10:20:29 Patient TargetsNo targets recorded. Patient Instructions Encounter Date Encounter Id Patient Instructions Last Modified By Organization Details Last Modified Time 09/26/2023 [id number] Follow-up chacon ry artery disease, hypertension, hyperlipidemia, paroxysmal atrial fibrillation, type 2 diabetes peripheral vascular disease all clinically stable. Will continue on current Rx check blood work consisting of CBC, CMP, lipid, thyroid, hemoglobin A1c and microalbumin. Continue on current Rx follow-up in four months. Portions of the record may have been created with voice recognition software. Occasional wrong-word or s ound-a-like substitutions may have occurred due to the inherent limitations of voice recognition software. Read the chart carefully and recognize, using context, where substitutions have occurred. [email or web address] Not available 09/26/2023 11:06:05 10/18/2023 [id number] complete PFT w/ post bronchodilator spirometry* [email or web address] Not available 12/27/2023 08:52:45 01/11/2024 [id number] complete PFT w/ post bronchodilator spirometry* [email or web address] Not available 12/10/2024 11:01:48 03/26/2024 [id number] Follow-up for hypertension, hyperlipidemia, paroxysmal atrial fibrillation, type 2 diabetes, and chronic obstructive lung disease all clinically stable. Will continue on current medications check blood work consisting of CBC, CMP, HAIC, Microalbumin and lipid panel. Continue on current Rx follow-up in six months. Next Appointment: 6 Months Approximate Date: 09/22/2024 Portions of the record may have been created with voice recognition software. Occasional wrong-word or s ound-a-like substitutions may have occurred due to the inherent limitations of voice recognition software. Read the chart carefully and recognize, using context, where substitutions have occurred. 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 Referring Physician: Bryon Cordoba, Internal Medicine, Encounter Date: 09/24/2024 Results Created Date Observation Date Name Description Value Unit Range Abnormal Flag Note LastModifiedBy Organization Detail LastModifiedTime 09/26/19 24 09/26/2023 CBC/C OMPLE TE BLD COUNT W/DIF F white blood cells 9.9 x10'3 /uL 4.2-10 .8 Not Available [facility] (Lab) [address] [place], [address], 09/26/2023 11:42:27 09/26/19 24 09/26/2023 CBC/C OMPLE TE BLD COUNT W/DIF F red blood cells 5.06 x10'6 /uL 4.10-5 .80 Not Available [facility] (Lab) [address] [place], [address], 09/26/2023 11:42:27 09/26/19 24 09/26/2023 CBC/C OMPLE TE BLD COUNT W/DIF F hemoglobin 14.4 g/dL 13.2-1 7.0 Not Available [facility] (Lab) [address] [place], [address], 09/26/2023 11:42:27 09/26/19 24 09/26/2023 CBC/C OMPLE TE BLD COUNT W/DIF F hematocrit 47.6 % 39.3-5 0.0 Not Available [facility] (Lab) [address] [place], [address], 09/26/2023 11:42:27 09/26/19 24 09/26/2023 CBC/C OMPLE TE BLD COUNT W/DIF F mean red cell volume 94.1 fL 80.0-9 7.0 Not Available [facility] (Lab) [address] [place], [address], 09/26/2023 11:42:27 09/26/19 24 09/26/2023 CBC/C OMPLE TE BLD COUNT W/DIF F mean red cell hemoglobin 28.5 pg 27.0-3 3.0 Not Available [facility] (Lab) [address] [place], [address], 09/26/2023 11:42:27 09/26/19 24 09/26/2023 CBC/C OMPLE TE BLD COUNT W/DIF F mean RBC HGB concentratio n 30.3 g/dL 31.0-3 6.0 low Not Available [facility] (Lab) [address] [place], [address], 09/26/2023 11:42:27 09/26/19 24 09/26/2023 CBC/C OMPLE TE BLD COUNT W/DIF F red cell distribution width 15.8 % 11.8-1 5.5 high Not Available [facility] (Lab) [address] [place], [address], 09/26/2023 11:42:27 09/26/19 24 09/26/2023 CBC/C OMPLE TE BLD COUNT W/DIF F platelets 281 x10'3 /uL 150-40 0 Not Available [facility] (Lab) [address] [place], [address], 09/26/2023 11:42:27 09/26/19 24 09/26/2023 CBC/C OMPLE TE BLD COUNT W/DIF F mean platelet volume 10.6 fL 9.0-12 .4 Not Available [facility] (Lab) [address] [facility] [place], [address], 09/26/2023 11:42:27 09/26/19 24 09/26/2023 CBC/C OMPLE TE BLD COUNT W/DIF F neutrophils 70.6 % 39.0-7 2.0 Not Available [facility] (Lab) [address] [place], [address], 09/26/2023 11:42:27 09/26/19 24 09/26/2023 CBC/C OMPLE TE BLD COUNT W/DIF F lymphocytes 17.5 % 16.0-4 7.0 Not Available [facility] (Lab) [address] [place], [address], 09/26/2023 11:42:27 09/26/19 24 09/26/2023 CBC/C OMPLE TE BLD COUNT W/DIF F monocytes 9.2 % 5.0-12 .0 Not Available [facility] (Lab) [address] [place], [address], 09/26/2023 11:42:27 09/26/19 24 09/26/2023 CBC/C OMPLE TE BLD COUNT W/DIF F eosinophils 1.7 % 1.0-7. 0 Not Available [facility] (Lab) [address] [place], [address], 09/26/2023 11:42:27 09/26/19 24 09/26/2023 CBC/C OMPLE TE BLD COUNT W/DIF F basophils 0.6 % 0.0-2. 0 Not Available [facility] (Lab) [address] [place], [address], 09/26/2023 11:42:27 09/26/19 24 09/26/2023 CBC/C OMPLE TE BLD COUNT W/DIF F immature granulocytes 0.4 % 0.00-0 .50 Not Available [facility] (Lab) [address] [place], [address], 09/26/2023 11:42:27 09/26/19 24 09/26/2023 CBC/C OMPLE TE BLD COUNT W/DIF F neutrophils, absolute count 6.98 x10'3 /uL 1.5-8. 0 Not Available [facility] (Lab) [address] [place], [address], 09/26/2023 11:42:27 09/26/19 24 09/26/2023 CBC/C OMPLE TE BLD COUNT W/DIF F lymphocytes, absolute count 1.73 x10'3 /uL 1.07-3 .43 Not Available [facility] (Lab) [address] [place], [address], 09/26/2023 11:42:27 09/26/19 24 09/26/2023 CBC/C OMPLE TE BLD COUNT W/DIF F monocytes, absolute count 0.91 x10'3 /uL 0.29-0 .99 Not Available [facility] (Lab) [address] [place], [address], 09/26/2023 11:42:27 09/26/19 24 09/26/2023 CBC/C OMPLE TE BLD COUNT W/DIF F eosinophils, absolute count 0.17 x10'3 /uL 0.02-0 .53 Not Available [facility] (Lab) [address] [place], [address], 09/26/2023 11:42:27 09/26/19 24 09/26/2023 CBC/C OMPLE TE BLD COUNT W/DIF F basophils, absolute count 0.06 x10'3 /uL 0.01-0 .08 Not Available [facility] (Lab) [address] [place], [address], 09/26/2023 11:42:27 09/26/19 24 09/26/2023 CBC/C OMPLE TE BLD COUNT W/DIF F immature granulocytes ,absolute 0.04 x10'3 /uL 0.00-0 .05 Not Available [facility] (Lab) [address] [place], [address], 09/26/2023 11:42:27 09/26/19 24 09/26/2023 CBC/C OMPLE TE BLD COUNT W/DIF F nucleated red blood cells 0.0 % -0 Not Available [facility] (Lab) [address] [place], [address], 09/26/2023 11:42:27 09/26/19 24 09/26/2023 CBC/C OMPLE TE BLD COUNT W/DIF F NRBC# 0.00 x10'3 /uL Not Available [facility] (Lab) [address] [place], [address], 09/26/2023 11:42:27 09/26/19 24 09/26/2023 HEMOG LOBIN A1C HA1C 7.2 % 4.0-6. 0 high Diabe sonal Scree herbert Crite yuly: <5.7% Consi stent with absen ce of diabe sonal 5.7-6 .4% Consi stent with incre ased risk for diabe sonal (pred iabet es) >OR=6 .5% Consi stent with diabe sonal REFER ENCE: Diabe sonal Care 2016, 39([place]nor ppl.1 ):s13 -s22 Not Available [facility] (Lab) [address] [place], [address], 09/26/2023 12:51:36 09/26/19 24 09/26/2023 T4 FREE free T4 1.67 NG/dL 0.78-2 .19 Not Available [facility] (Lab) [address] [place], [address], 09/26/2023 13:11:32 09/26/19 24 09/26/2023 TSH thyroid-stim ulating hormone 0.976 uIU/m L 0.465- 4.680 Not Available [facility] (Lab) [address] [place], [address], 09/26/2023 13:40:51 09/26/19 24 09/26/2023 LIPID PANEL cholesterol 175 mg/dL 140-19 9 NIH PITA NSUS RECOM MENDA TION FOR BART STERO L: ADULT CHILD LOW RISK: <200 <170 BORDE RLINE : <200- 239 ----- HIGH RISK: >240 >200 Not Available [facility] (Lab) [address] [place], [address], 09/26/2023 14:21:47 09/26/19 24 09/26/2023 LIPID PANEL triglyceride s 151 mg/dL 0-150 high NIH PITA NSUS REPOR T RECOM MENDA TION FOR TRIGL YCERI REY: ADULT CHILD LOW RISK: <150 ----- BODER LINE: 150-1 99 ----- HIGH RISK: >200 ----- Not Available [facility] (Lab) [address] [place], [address], 09/26/2023 14:21:47 09/26/19 24 09/26/2023 LIPID PANEL HDL cholesterol 47 mg/dL 40- Not Available [facility] (Lab) [address] [place], [address], 09/26/2023 14:21:47 09/26/19 24 09/26/2023 LIPID PANEL LDL cholesterol, calculated 98 mg/dL 0-130 NIH PITA NSUS REPOR T RECOM MENDA TIONS FOR LDL: ADULT CHILD LOW RISK <130 <110 (OPTI MAL LDL) <100 ----- RODGER RLINE : 130-1 59 ----- HIGH RISK: >160 >130 A TRIGL YCERI DE RESUL T >400 INVAL IDATE S THE CALCU LATIO N FOR LDL FRACT IONAT ION - THE LDL RESUL T WILL NOT BE REPOR SANTI. Not Available [facility] (Lab) [address] [place], [address], 09/26/2023 14:21:47 09/26/19 24 09/26/2023 COMPR EHENS BETH METAB OLIC PANEL sodium 141 mmol/ L 137-14 5 Not Available [facility] (Lab) [address] [place], [address], 09/26/2023 14:21:53 09/26/19 24 09/26/2023 COMPR EHENS BETH METAB OLIC PANEL potassium 4.9 mmol/ L 3.5-5. 1 Not Available [facility] (Lab) [address] [place], [address], 09/26/2023 14:21:53 09/26/19 24 09/26/2023 COMPR EHENS BETH METAB OLIC PANEL chloride 101 mmol/ L 98-107 Not Available [facility] (Lab) [address] [place], [address], 09/26/2023 14:21:53 09/26/19 24 09/26/2023 COMPR EHENS BETH METAB OLIC PANEL carbon dioxide 33 mmol/ L 22-30 high Not Available [facility] (Lab) [address] [place], [address], 09/26/2023 14:21:53 09/26/19 24 09/26/2023 COMPR EHENS BETH METAB OLIC PANEL anion gap 11.9 mmol/ L 14-22 low Not Available [facility] (Lab) [address] [place], [address], 09/26/2023 14:21:53 09/26/19 24 09/26/2023 COMPR EHENS BETH METAB OLIC PANEL glucose 125 mg/dL 70-99 high Not Available [facility] (Lab) [address] [place], [address], 09/26/2023 14:21:53 09/26/19 24 09/26/2023 COMPR EHENS BETH METAB OLIC PANEL BUN 16 mg/dL 8-19 Not Available [facility] (Lab) [address] [place], [address], 09/26/2023 14:21:53 09/26/19 24 09/26/2023 COMPR EHENS BETH METAB OLIC PANEL creatinine 1.02 mg/dL 0.66-1 .25 Not Available [facility] (Lab) [address] [place], [address], 09/26/2023 14:21:53 09/26/19 24 09/26/2023 COMPR EHENS BETH METAB OLIC PANEL GFR >60 Refer ence Range : [place] ge GFR Healt hy Adult : >60 mL/mi n/1.7 3 m2 Chron ic Kidne y Disea se: 15-60 mL/mi n/1.7 3 m2 Kidne y Failu re: <15/m L/min /1.73 m2 www.n iddk. nih.g ov The MDRD study equat ion has not been valid ated in child new <18 years of age; pregn ant women ; the elder ly >85 years of age; or in some racia l or ethni c subgr oups, such as [facility] nics. Outsi de the valid ated ifeoma eters , estim ated GFR is less accur ate, requi ring clini raman judgm ent on a case- by-ca se basis . Clini raman inter preta tion for other races and ages must be made by the clini april. The MDRD study equat ion has not been valid ated for the evalu ation of serum creat inine relat ed to nutri mathew l statu s or medic ation usage . For perso ns <18 years of age, a pedia tric GFR calcu lator is avail able on the [facility] websi te: [email or web address] :[email or web address] [email or web address] arian/pr pérezess eloisaal s/kdo qi/gf r_cal culat or Not Available [facility] (Lab) [address], [place], [address], 09/26/2023 14:21:53 09/26/19 24 09/26/2023 COMPR EHENS BETH METAB OLIC PANEL alkaline phosphatase 84 U/L 38-126 Not Available [facility] (Lab) [address] [place], [address], 09/26/2023 14:21:53 09/26/19 24 09/26/2023 COMPR EHENS BETH METAB OLIC PANEL alanine aminotransfe rase 20 U/L 0-50 Not Available [facility] (Lab) [address] [place], [address], 09/26/2023 14:21:53 09/26/19 24 09/26/2023 COMPR EHENS BETH METAB OLIC PANEL aspartate aminotransfe rase 37 U/L 15-46 Not Available [facility] (Lab) [address] [place], [address], 09/26/2023 14:21:53 09/26/19 24 09/26/2023 COMPR EHENS BETH METAB OLIC PANEL bilirubin, total 0.70 mg/dL 0.20-1 .30 Not Available [facility] (Lab) [address] [place], [address], 09/26/2023 14:21:53 09/26/19 24 09/26/2023 COMPR EHENS BETH METAB OLIC PANEL calcium 9.7 mg/dL 8.4-10 .2 Not Available [facility] (Lab) [address] [place], [address], 09/26/2023 14:21:53 09/26/19 24 09/26/2023 COMPR EHENS BETH METAB OLIC PANEL total protein 7.7 g/dL 6.3-8. 2 Not Available [facility] (Lab) [address] [place], [address], 09/26/2023 14:21:53 09/26/19 24 09/26/2023 COMPR EHENS BETH METAB OLIC PANEL albumin 4.6 g/dL 3.0-4. 4 high Not Available [facility] (Lab) [address] [place], [address], 09/26/2023 14:21:53 09/26/19 24 09/26/2023 COMPR EHENS BETH METAB OLIC PANEL globulin 3.1 g/dL 2.6-4. 2 Not Available [facility] (Lab) [address] [place], [address], 09/26/2023 14:21:53 09/26/19 24 09/26/2023 COMPR EHENS BETH METAB OLIC PANEL A/G ratio 1.5 ratio 1.0-2. 0 Not Available [facility] (Lab) [address] [place], [address], 09/26/2023 14:21:53 09/26/19 24 09/26/2023 MICRO ALBUM IN RANDO M URINE microalbumin , urine 370.0 mg/L 0.0-16 .6 high Not Available [facility] (Lab) [address] [place], [address], 09/26/2023 16:11:11 03/26/20 24 03/26/2024 CBC/C OMPLE TE BLD COUNT W/DIF F white blood cells 7.8 x10'3 /uL 4.2-10 .8 Not Available [facility] (Lab) [address] [place], [address], 03/26/2024 13:07:07 03/26/20 24 03/26/2024 CBC/C OMPLE TE BLD COUNT W/DIF F red blood cells 4.68 x10'6 /uL 4.10-5 .80 Not Available [facility] (Lab) [address] [place], [address], 03/26/2024 13:07:07 03/26/20 24 03/26/2024 CBC/C OMPLE TE BLD COUNT W/DIF F hemoglobin 13.9 g/dL 13.2-1 7.0 Not Available [facility] (Lab) [address] [place], [address], 03/26/2024 13:07:07 03/26/20 24 03/26/2024 CBC/C OMPLE TE BLD COUNT W/DIF F hematocrit 45.7 % 39.3-5 0.0 Not Available [facility] (Lab) [address] [place], [address], 03/26/2024 13:07:07 03/26/20 24 03/26/2024 CBC/C OMPLE TE BLD COUNT W/DIF F mean red cell volume 97.6 fL 80.0-9 7.0 high Not Available [facility] (Lab) [address] [place], [address], 03/26/2024 13:07:07 03/26/20 24 03/26/2024 CBC/C OMPLE TE BLD COUNT W/DIF F mean red cell hemoglobin 29.7 pg 27.0-3 3.0 Not Available [facility] (Lab) [address] [place], [address], 03/26/2024 13:07:07 03/26/20 24 03/26/2024 CBC/C OMPLE TE BLD COUNT W/DIF F mean RBC HGB concentratio n 30.4 g/dL 31.0-3 6.0 low Not Available [facility] (Lab) [address] [place], [address], 03/26/2024 13:07:07 03/26/20 24 03/26/2024 CBC/C OMPLE TE BLD COUNT W/DIF F red cell distribution width 15.2 % 11.8-1 5.5 Not Available [facility] (Lab) [address] [place], [address], 03/26/2024 13:07:07 03/26/20 24 03/26/2024 CBC/C OMPLE TE BLD COUNT W/DIF F platelets 287 x10'3 /uL 150-40 0 Not Available [facility] (Lab) [address] [place], [address], 03/26/2024 13:07:07 03/26/20 24 03/26/2024 CBC/C OMPLE TE BLD COUNT W/DIF F mean platelet volume 11.3 fL 9.0-12 .4 Not Available [facility] (Lab) [address] [place], [address], 03/26/2024 13:07:07 03/26/20 24 03/26/2024 CBC/C OMPLE TE BLD COUNT W/DIF F neutrophils 70.5 % 39.0-7 2.0 Not Available [facility] (Lab) [address] [place], [address], 03/26/2024 13:07:07 03/26/20 24 03/26/2024 CBC/C OMPLE TE BLD COUNT W/DIF F lymphocytes 15.2 % 16.0-4 7.0 low Not Available [facility] (Lab) [address] [place], [address], 03/26/2024 13:07:07 03/26/20 24 03/26/2024 CBC/C OMPLE TE BLD COUNT W/DIF F monocytes 11.7 % 5.0-12 .0 Not Available [facility] (Lab) [address] [place], [address], 03/26/2024 13:07:07 03/26/20 24 03/26/2024 CBC/C OMPLE TE BLD COUNT W/DIF F eosinophils 1.5 % 1.0-7. 0 Not Available [facility] (Lab) [address] [place], [address], 03/26/2024 13:07:07 03/26/20 24 03/26/2024 CBC/C OMPLE TE BLD COUNT W/DIF F basophils 0.5 % 0.0-2. 0 Not Available [facility] (Lab) [address] [place], [address], 03/26/2024 13:07:07 03/26/20 24 03/26/2024 CBC/C OMPLE TE BLD COUNT W/DIF F immature granulocytes 0.6 % 0.00-0 .50 high Not Available [facility] (Lab) [address] [place], [address], 03/26/2024 13:07:07 03/26/20 24 03/26/2024 CBC/C OMPLE TE BLD COUNT W/DIF F neutrophils, absolute count 5.45 x10'3 /uL 1.5-8. 0 Not Available [facility] (Lab) [address] [place], [address], 03/26/2024 13:07:07 03/26/20 24 03/26/2024 CBC/C OMPLE TE BLD COUNT W/DIF F lymphocytes, absolute count 1.18 x10'3 /uL 1.07-3 .43 Not Available [facility] (Lab) [address] [place], [address], 03/26/2024 13:07:07 03/26/20 24 03/26/2024 CBC/C OMPLE TE BLD COUNT W/DIF F monocytes, absolute count 0.91 x10'3 /uL 0.29-0 .99 Not Available [facility] (Lab) [address] [place], [address], 03/26/2024 13:07:07 03/26/20 24 03/26/2024 CBC/C OMPLE TE BLD COUNT W/DIF F eosinophils, absolute count 0.12 x10'3 /uL 0.02-0 .53 Not Available [facility] (Lab) [address] [place], [address], 03/26/2024 13:07:07 03/26/20 24 03/26/2024 CBC/C OMPLE TE BLD COUNT W/DIF F basophils, absolute count 0.04 x10'3 /uL 0.01-0 .08 Not Available [facility] (Lab) [address] [place], [address], 03/26/2024 13:07:07 03/26/20 24 03/26/2024 CBC/C OMPLE TE BLD COUNT W/DIF F immature granulocytes ,absolute 0.05 x10'3 /uL 0.00-0 .05 Not Available [facility] (Lab) [address] [place], [address], 03/26/2024 13:07:07 03/26/20 24 03/26/2024 CBC/C OMPLE TE BLD COUNT W/DIF F nucleated red blood cells 0.0 % -0 Not Available [facility] (Lab) [address] [place], [address], 03/26/2024 13:07:07 03/26/20 24 03/26/2024 CBC/C OMPLE TE BLD COUNT W/DIF F NRBC# 0.00 x10'3 /uL Not Available [facility] (Lab) [address] [place], [address], 03/26/2024 13:07:07 03/26/20 24 03/26/2024 LIPID PANEL cholesterol 142 mg/dL 140-19 9 NIH PITA NSUS RECOM MENDA TION FOR BART STERO L: ADULT CHILD LOW RISK: <200 <170 BORDE RLINE : <200- 239 ----- HIGH RISK: >240 >200 Not Available [facility] (Lab) [address] [place], [address], 03/26/2024 13:59:08 03/26/20 24 03/26/2024 LIPID PANEL triglyceride s 116 mg/dL 0-150 NIH PITA NSUS REPOR T RECOM MENDA TION FOR TRIGL YCERI REY: ADULT CHILD LOW RISK: <150 ----- BODER LINE: 150-1 99 ----- HIGH RISK: >200 ----- Not Available [facility] (Lab) [address] [place], [address], 03/26/2024 13:59:08 03/26/20 24 03/26/2024 LIPID PANEL HDL cholesterol 38 mg/dL 40- low Not Available [facility] (Lab) [address] [place], [address], 03/26/2024 13:59:08 03/26/20 24 03/26/2024 LIPID PANEL LDL cholesterol, calculated 81 mg/dL 0-130 NIH PITA NSUS REPOR T RECOM MENDA TIONS FOR LDL: ADULT CHILD LOW RISK <130 <110 (OPTI MAL LDL) <100 ----- BORDE RLINE : 130-1 59 ----- HIGH RISK: >160 >130 A TRIGL YCERI DE RESUL T >400 INVAL IDATE S THE CALCU LATIO N FOR LDL FRACT IONAT ION - THE LDL RESUL T WILL NOT BE REPOR SANTI. Not Available [facility] (Lab) [address] [place], [address], 03/26/2024 13:59:08 03/26/20 24 03/26/2024 COMPR EHENS BETH METAB OLIC PANEL sodium 139 mmol/ L 137-14 5 Not Available [facility] (Lab) [address] [place], [address], 03/26/2024 13:59:14 03/26/20 24 03/26/2024 COMPR EHENS BETH METAB OLIC PANEL potassium 4.6 mmol/ L 3.5-5. 1 Not Available [facility] (Lab) [address] [place], [address], 03/26/2024 13:59:14 03/26/20 24 03/26/2024 COMPR EHENS BETH METAB OLIC PANEL chloride 104 mmol/ L 98-107 Not Available [facility] (Lab) [address] [place], [address], 03/26/2024 13:59:14 03/26/20 24 03/26/2024 COMPR EHENS BETH METAB OLIC PANEL carbon dioxide 29 mmol/ L 22-30 Not Available [facility] (Lab) [address] [place], [address], 03/26/2024 13:59:14 03/26/20 24 03/26/2024 COMPR EHENS BETH METAB OLIC PANEL anion gap 10.6 mmol/ L 14-22 low Not Available [facility] (Lab) [address] [place], [address], 03/26/2024 13:59:14 03/26/20 24 03/26/2024 COMPR EHENS BETH METAB OLIC PANEL glucose 128 mg/dL 70-99 high Not Available [facility] (Lab) [address] [place], [address], 03/26/2024 13:59:14 03/26/20 24 03/26/2024 COMPR EHENS BETH METAB OLIC PANEL BUN 16 mg/dL 8-19 Not Available [facility] (Lab) [address] [place], [address], 03/26/2024 13:59:14 03/26/20 24 03/26/2024 COMPR EHENS BETH METAB OLIC PANEL creatinine 0.96 mg/dL 0.66-1 .25 Not Available [facility] (Lab) [address] [place], [address], 03/26/2024 13:59:14 03/26/20 24 03/26/2024 COMPR EHENS BETH METAB OLIC PANEL GFR >60 Refer ence Range : [place] ge GFR Healt hy Adult : >60 mL/mi n/1.7 3 m2 Chron ic Kidne y Disea se: 15-60 mL/mi n/1.7 3 m2 Kidne y Failu re: <15/m L/min /1.73 m2 www.n iddk. nih.g ov The MDRD study equat ion has not been valid ated in child new <18 years of age; pregn ant women ; the elder ly >85 years of age; or in some racia l or ethni c subgr oups, such as Primitivo nics. Outsi de the valid ated ifeoma eters , estim ated GFR is less accur ate, requi ring clini raman judgm ent on a case- by-ca se basis . Clini raamn inter preta tion for other races and ages must be made by the clini april. The MDRD study equat ion has not been valid ated for the evalu ation of serum creat inine relat ed to nutri mathew l statu s or medic ation usage . For perso ns <18 years of age, a pedia tric GFR calcu lator is avail able on the [facility] websi te: https ://lorelei petersen.hilda rg/pr ofess ional s/kdo qi/gf r_cal culat or Not Available [facility] (Lab) [address] [place], [address], 03/26/2024 13:59:14 03/26/20 24 03/26/2024 COMPR EHENS BETH METAB OLIC PANEL alkaline phosphatase 78 U/L 38-126 Not Available [facility] (Lab) [address] [place], [address], 03/26/2024 13:59:14 03/26/20 24 03/26/2024 COMPR EHENS BETH METAB OLIC PANEL alanine aminotransfe rase 21 U/L 0-50 Not Available [facility] (Lab) [address] [place], [address], 03/26/2024 13:59:14 03/26/20 24 03/26/2024 COMPR EHENS BETH METAB OLIC PANEL aspartate aminotransfe rase 32 U/L 15-46 Not Available [facility] (Lab) [address] [place], [address], 03/26/2024 13:59:14 03/26/20 24 03/26/2024 COMPR EHENS BETH METAB OLIC PANEL bilirubin, total 0.70 mg/dL 0.20-1 .30 Not Available [facility] (Lab) [address] [place], [address], 03/26/2024 13:59:14 03/26/20 24 03/26/2024 COMPR EHENS BETH METAB OLIC PANEL calcium 8.9 mg/dL 8.4-10 .2 Not Available [facility] (Lab) [address] [place], [address], 03/26/2024 13:59:14 03/26/20 24 03/26/2024 COMPR EHENS BETH METAB OLIC PANEL total protein 7.1 g/dL 6.3-8. 2 Not Available [facility] (Lab) [address] [place], [address], 03/26/2024 13:59:14 03/26/20 24 03/26/2024 COMPR EHENS BETH METAB OLIC PANEL albumin 4.2 g/dL 3.0-4. 4 Not Available [facility] (Lab) [address] [place], [address], 03/26/2024 13:59:14 03/26/20 24 03/26/2024 COMPR EHENS BETH METAB OLIC PANEL globulin 2.9 g/dL 2.6-4. 2 Not Available [facility] (Lab) [address] [place], [address], 03/26/2024 13:59:14 03/26/20 24 03/26/2024 COMPR EHENS BETH METAB OLIC PANEL A/G ratio 1.4 ratio 1.0-2. 0 Not Available [facility] (Lab) [address] [place], [address], 03/26/2024 13:59:14 03/26/20 24 03/26/2024 HEMOG LOBIN A1C HA1C 7.5 % 4.0-6. 0 high Diabe sonal Scree herbert Crite yuly: <5.7% Consi stent with absen ce of diabe sonal 5.7-6 .4% Consi stent with incre ased risk for diabe sonal (pred iabet es) >OR=6 .5% Consi stent with diabe sonal REFER ENCE: Diabe sonal Care 2016, 39(Oconnor ppl.1 ):s13 -s22 Not Available [facility] (Lab) [address] [place], [address], 03/26/2024 14:16:25 03/26/20 24 03/26/2024 MICRO ALBUM IN RANDO M URINE microalbumin , urine 150.6 mg/L 0.0-16 .6 high Not Available [facility] (Lab) [address] [place], [address], 03/26/2024 16:35:06 09/24/19 25 09/25/2024 ALBUM IN, RANDO M URINE W/CRE ATINI NE creatinine, random urine 55 mg/dL 20-320 normal Not Available [facility] [address] [place], [address], 09/25/2024 04:50:00 09/24/19 25 09/25/2024 ALBUM IN, RANDO M URINE W/CRE ATINI NE albumin, urine 2.5 mg/dL see note: normal Refer ence Range : Refer ence Range Not estab lishe d Not Available [address], [address], 09/25/2024 04:50:00 09/24/1909/25/2024 ALBUM IN, RANDO M URINE W/CRE ATINI NE albumin/crea tinine ratio, random urine 45 mg/g_ creat <30 high The ADA defin es abnor malit ies in album in excre tion as follo ws: Album inuri a Categ ory Resul t (mg/g creat inine ) Alison l to Mildl y incre ased <30 Moder ately incre ased 30-29 9 Sever abdiel incre ased > OR = 300 The ADA recom mends that at least two of three speci mens colle cted withi n a 3-6 month perio d be abnor mal befor e consi jennifer g a patie nt to be withi n a diagn ostic categ ory. Not Available [address] [place], [address], 09/25/2024 04:50:00 09/24/1909/25/2024 ALBUM IN, VALERIANO M URINE W/CRE ATINI NE copy(ies) sent to: PRISCILA Sahni [address] [place] [address] Not Available [address], [address], 09/25/2024 04:50:00 09/24/1909/25/2024 CBC (INCL UDES DIFF/ PLT) white blood cell count 8.9 thous and/u L 3.8-10 .8 normal Not Available [address], [address], 09/25/2024 04:50:01 09/24/19 25 09/25/2024 CBC (INCL UDES DIFF/ PLT) red blood cell count 4.73 edwin on/uL 4.20-5 .80 normal Not Available [address], [address], 09/25/2024 04:50:01 09/24/1909/25/2024 CBC (INCL UDES DIFF/ PLT) hemoglobin 14.6 g/dL 13.2-1 7.1 normal Not Available [address], [address], 09/25/2024 04:50:01 09/24/1909/25/2024 CBC (INCL UDES DIFF/ PLT) hematocrit 45.3 % 38.5-5 0.0 normal Not Available [address], [address], 09/25/2024 04:50:01 09/24/1909/25/2024 CBC (INCL UDES DIFF/ PLT) MCV 95.8 fL 80.0-1 00.0 normal Not Available [address], [address], 09/25/2024 04:50:01 09/24/1909/25/2024 CBC (INCL UDES DIFF/ PLT) MCH 30.9 pg 27.0-3 3.0 normal Not Available [address], [address], 09/25/2024 04:50:01 09/24/1909/25/2024 CBC (INCL UDES DIFF/ PLT) MCHC 32.2 g/dL 32.0-3 6.0 normal For adult s, a sligh t decre ase in the calcu lated MCHC value (in the range of 30 to 32 g/dL) is most likel y not clini sola alvarenga t; azra er, it shoul d be inter prete d with cauti on in carrier clinic n with other red cell ifeoma eters and the patie nt's clini rmaan condi tion. Not Available [address], [address], 09/25/2024 04:50:01 09/24/1909/25/2024 CBC (INCL UDES DIFF/ PLT) RDW 12.7 % 11.0-1 5.0 normal Not Available [address], [address], 09/25/2024 04:50:01 09/24/1909/25/2024 CBC (INCL UDES DIFF/ PLT) platelet count 271 thous and/u L 140-40 0 normal Not Available [address], [address], 09/25/2024 04:50:01 09/24/1909/25/2024 CBC (INCL UDES DIFF/ PLT) MPV 11.4 fL 7.5-12 .5 normal Not Available [address], [address], 09/25/2024 04:50:01 09/24/1909/25/2024 CBC (INCL UDES DIFF/ PLT) absolute neutrophils 6533 cells /uL 1500-7 800 normal Not Available [address], [address], 09/25/2024 04:50:01 09/24/1909/25/2024 CBC (INCL UDES DIFF/ PLT) absolute lymphocytes 1353 cells /uL 850-39 00 normal Not Available [address], [address], 09/25/2024 04:50:01 09/24/1909/25/2024 CBC (INCL UDES DIFF/ PLT) absolute monocytes 792 cells /uL 200-95 0 normal Not Available [address], [address], 09/25/2024 04:50:01 09/24/1909/25/2024 CBC (INCL UDES DIFF/ PLT) absolute eosinophils 160 cells /uL 15-500 normal Not Available [address], [address], 09/25/2024 04:50:01 09/24/1909/25/2024 CBC (INCL UDES DIFF/ PLT) absolute basophils 62 cells /uL 0-200 normal Not Available [facility] [address], [address], 09/25/2024 04:50:01 09/24/1909/25/2024 CBC (INCL UDES DIFF/ PLT) neutrophils 73.4 % normal Not Available [address], [address], 09/25/2024 04:50:01 09/24/1909/25/2024 CBC (INCL UDES DIFF/ PLT) lymphocytes 15.2 % normal Not Available [address], [address], 09/25/2024 04:50:01 09/24/1909/25/2024 CBC (INCL UDES DIFF/ PLT) monocytes 8.9 % normal Not Available [address], [address], 09/25/2024 04:50:01 09/24/1909/25/2024 CBC (INCL UDES DIFF/ PLT) eosinophils 1.8 % normal Not Available [facility] [address], [address], 09/25/2024 04:50:01 09/24/1909/25/2024 CBC (INCL UDES DIFF/ PLT) basophils 0.7 % normal Not Available [address], [address], 09/25/2024 04:50:01 09/24/1909/25/2024 CBC (INCL UDES DIFF/ PLT) copy(ies) sent to: PRISCILA Sahni [address] [place] [address] Not Available [facility] [address] [address] [place], [address], 09/25/2024 04:50:01 09/24/1909/25/2024 TSH W/REF VERONICA TO FT4 TSH w/reflex to FT4 1.36 mIU/L 0.40-4 .50 normal Not Available [facility] [address] [address] [place], [address], 09/25/2024 04:50:03 09/24/1909/25/2024 TSH W/REF VERONICA TO FT4 copy(ies) sent to: PRISCILA GARCIA JENNIFER Sahni [address] [place] [address] Not Available [facility] [address] [address] [place], [address], 09/25/2024 04:50:03 09/24/1909/25/2024 HEMOG LOBIN A1C hemoglobin A1C 7.0 %_of_ total _HGB <5.7 high For someo ne witho ut known diabe sonal, a hemog lobin A1c value of 6.5% or great er indic ates that they may have diabe sonal and this shoul d be confi rmed with a follo w-up test. For someo ne with known diabe sonal, a value <7% indic ates that their diabe sonal is well contr olled and a value great er than or equal to 7% indic ates subop timal contr ol. A1c targe ts shoul d be indiv idual ized based on durat ion of diabe sonal, age, comor bid condi tions , and other consi derat ions. Curre ntly, no conse nsus exist s regar ding use of hemog lobin A1c for diagn osis of diabe sonal for child new. Not Available [facility] [address] [address] [place], [address], 09/25/2024 04:50:04 09/24/1909/25/2024 HEMOG LOBIN A1C copy(ies) sent to: PRISCILA RODRIGUEZ C [address] [place] [address] Not Available [facility] [address] [address] [place], [address], 09/25/2024 04:50:04 09/30/1909/29/2024 COLOG UARD cologuard result reportable NEGATI VE negati ve normal NEGAT BETH TEST RESUL T. A negat beth Colog uard resul t indic ates a low likel ihood that a color ectal cance r (CRC) or advan yolanda adeno ma (linda omato us polyp s with more advan yolanda pre-m align ant featu res) is prese nt. The chanc e that a perso n with a negat beth Colog uard test has a color ectal cance r is less than 1 in 1500 (nega tive predi ctive value >99.9 %) or has an advan yolanda adeno ma is less than 5.3% (nega tive predi ctive value 94.7% ). These data are based on a prosp ectiv e cross -sect ional study of 10,00 0 indiv idual s at [facility] risk for color ectal cance r who were scree margaret with both Colog uard and colon oscop y. (Anne Topete et al, N Engl J Med 2014; 370(1 4):12 86-12 97) The alison l value (refe rence range ) for this assay is negat beth. COLOG UARD RE-SC CODI LLAMAS RECOM MENDA TION: Perio dic color ectal cance r scree herbert is an impor tant part of preve ntive healt hcare for asymp tomat ic indiv idual s at [facility] risk for color ectal cance r. Follo wing a negat beth Colog uard resul t, the Ameri can Cance r Socie ty and U.S. Multi -Soci ety Task Force scree herbert guide lines recom mend a Colog uard re-sc reeluiz ng inter larissa of 3 years . Refer ences : Ameri can Cance r Socie ty Guide line for Color ectal Cance r Scree herbert: https ://lorelei w.can cer.o rg/ca ncer/ colon -rect al-ca ncer/ detec tion- diagn osis- stagi ng/ac s-rec ommen datio ns.ht ml.; Dougie HERNANDEZ, Earle gar CR, Bandar espinoza JK, Color ectal Cance r Scree herbert: Recom menda tions for Physi cians and Patie nts from the U.S. Multi -Soci ety Task Force on Color ectal Cance r Scree herbert , Am J Gastr oente rolog y 2017; 112:1 016-1 030. TEST DESCR IPTIO N: [place] site algor ithmi c geo sis of stool DNA-b viraj bonilla with hemog lobin immun oassa y. Quant itati ve value s of indiv idual bioma rkers are not repor table and are not assoc iated with indiv idual bioma rker resul t refer ence range s. Colog uard is inten ded for color ectal cance r scree herbert of adult s of eithe r sex, 45 years or older , who are at [facility] for color ectal cance r (CRC) . Colog uard has been appro xavi for use by the U.[place]. FDA. The perfo rmanc e of Colog uard was estab lishe d in a cross secti onal study of [facility] adult s aged 50-84 . Colog uard perfo rmanc e in patie nts ages 45 to 49 years was estim ated by sub-g roup geo sis of near- age group s. Colon oscop ies perfo rmed for a posit beth resul t may find as the most clini sola signi lyle avila n: color ectal cance r [4.0% ], advan yolanda adeno ma (incl uding sessi le eran santi polyp s great er than or equal to 1cm diame ter) [20%] or non- advan yolanda adeno ma [31%] ; or no color ectal neopl juan j [45%] . These estim ates are deriv ed from a prosp ectiv e cross -sect ional scree herbert study of 0 indiv idual s at [facility] risk for color ectal cance r who were scree margaret with both Colog uard and colon oscop y. (Anne Sadler al, N Engl J Med 2014; 370(1 4):12 86-12 97.) Colog uard may produ ce a false negat beth or false posit beth resul t (no color ectal cance r or preca ncero us polyp prese nt at colon oscop y follo w up). A negat beth Colog uard test resul t does not guara ntee the absen ce of CRC or advan yolanda adeno ma (pre- cance r). The curre nt Colog uard scree herbert inter larissa is every 3 years . ([employer]mer [employer] Cance r Socie ty and [employer] Multi -Soci ety Task Force ). Colog uard perfo rmanc e data in a 0 patie nt pivot al study using colon oscop y as the refer ence metho d can be acces sed at the follo wing locat ion: www.e xactl abs.c om/re justine . Addit ional descr iptio n of the Colog uard test proce ss, warni ngs and preca ution s can be found at www.c ologu edgar.c om. Not Available [facility] (Cologuard Orders Only) [address], [place], [address], 10/03/2024 08:22:18 01/10/20 24 01/10/2024 LDCT, chest , for lung cance r scree herbert No observ ation record ed. [facility] ([facility] Sched[facility]) [address] [place], [address], 02/06/2024 10:18:04 01/11/20 24 01/10/2024 compl [facility]e [facility] hodil ator hans metry * No observ ation record ed. [facility] ([facility] Sched[facility]) [address] [place], [address], 01/11/2024 09:51:09 02/10/20 24 02/10/2024 , [facility] arvivienneo gram No observ ation record ed. [email or web address] [facility] [address] [facility] [address], [place], [address], 02/11/2024 09:29:30 Result Notes None recorded. Problems Name Problem SNOMED Code Status Onset Date Resolution Date Notes Provider Name and Address Organization Details Recorded Time Benign essential hypertensi on 6146118 Completed Not Available [facility] 05:55:39 Idiopathic peripheral neuropathy 55638042 Active Not Available [facility] 3 05:37:27 Prostate specific antigen above reference range [id number] Active Not Available [facility] 3 05:37:27 Peripheral vascular disease 237465332 Active Not Available [facility] 3 05:37:27 Diastolic heart failure 986201221 Active 2021 Not Available [facility] 3 05:37:27 Type 2 diabetes mellitus 73630399 Active Not Available [facility] 3 05:37:27 Atrial fibrillati on 75714755 Active 2021 Not Available [facility] 3 05:37:27 Hyperlipid emia 32645547 Active Not Available [facility] 3 05:37:27 Essential hypertensi on 64483219 Active 2016 Not Available [facility] 3 05:37:27 Carotid artery stenosis 75782519 Active Not Available [facility] 3 05:37:27 Severe chronic obstructiv e pulmonary disease 720532234 Active 2022 Not Available [facility] 3 05:37:27 Ex-smoker 0160138 Active 2022 Not Available [facility] 3 05:37:27 Disorder of prostate 63915192 Active 2022 Bryon Cordoba MD [address], [place], [address] , [facility] [employer] 3 11:03:43 Chronic obstructiv e pulmonary disease 96736191 Active 2024 Bryon Cordoba MD [address] [facility], [facility] [address], [place], [address] , [facility] [employer] 5 10:48:56 Notes:Medical History: Right cataract Rhinitis to multiple environmental allergens Eosinophils 420/uL IgE 1033 IU/mL Carotid artery stenosis AAT PiMM 180 mg% Nicotine use Severe COPD, 2 Lpm continuous O2 c/o IVRC, declined pulm rehab 4 mm LLL nodule T2DM with neuropathy Hyperlipidemia Hypertension CHF, EF 50% Atrial fibrillation on Eliquis Mild MR Mod LAE Mod RVE Mild RUIZ PVD Procedure History: Right facial trauma surgery 1969 Right leg fracture surgery 1975 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 Procedures Surgical History Date Name Laterality Status Provider Name and Address Organization Details Recorded Time insertion of pleural tube drain completed Brenda Quiroz MA [employer] [facility] [employer] 10/18/2023 10:00:58 Imaging Results Imaging Date Name Status LastModified by Organization Details LastModified Time 01/10/2024 LDCT, chest, for lung cancer screening completed [address] ([employer]) [address] [place], [address], 02/06/2024 10:18:04 01/10/2024 complete PFT w/ post bronchodilator spirometry* completed [facility] ([employer] [facility]) [address] [place], [address], 01/11/2024 09:51:09 02/10/2024 US, echocardiogram completed [email or web address] [address] [facility] [address], [place], [address], 02/11/2024 09:29:30 Procedure Notes None recorded. Medical Equipment None Reported. Allergies Allergen ID Allergen Name Allergen Category Reaction Reaction Severity Criticality Documentation Date Start Date Code Code System Note Provider Name and Address Organization Details Recorded Time 30747 Product containin g penicilli n (product) medicatio n Not available Not available Not available 09/29/2022 06318 8001 SNOMED Not Available [facility] 3 06:00:30 95239 lisinopri l medicatio n Not available Not available Not available 10/18/2023 94881 RxNorm Brenda Quiroz MA null, [place] [facility] [facility] 4 09:56:37 Medications Name Sig Start Date Stop Date Status Note LastModified by Organization Details LastModified Time furosemide 40 mg tablet TAKE 1 TABLET BY MOUTH EVERY DAY active Not Available Not Available No t Available metformin 500 mg tablet TAKE 1 TABLET BY MOUTH TWICE DAILY WITH FOOD active Not Available Not Available No t Available clindamycin HCl 300 mg capsule Take 1 capsule every 6 hours by oral route for 10 days. 10/14 completed Not Available Not Available Not Available lisinopril 20 mg-hydrochl orothiazide 12.5 mg tablet TAKE ONE TABLET BY MOUTH DAILY 10/14 completed Not Available Not Available Not Available Medrol (Khris) 4 mg tablets in a dose pack As Directed 10/14 completed Not Available Not Available Not Available clopidogrel 75 mg tablet TAKE 1 TABLET BY MOUTH EVERY DAY active Not Available Not Available No t Available amlodipine 5 mg tablet TAKE 1 TABLET BY MOUTH EVERY DAY 2023 active Not Available Not Available Not Avai lable hydrocodone 10 mg-acetamin ophen 325 mg tablet TAKE 1 TABLET BY MOUTH EVERY 4-6 HOURS NEEDED FOR PAIN 12/17 completed Not Available Not Available Not Available aspirin 81 mg tablet,jane yed release Take 1 tablet every day by oral route. 12/17 completed Not Available Not Available Not Available sildenafil 100 mg tablet TAKE 1 TABLET BY MOUTH DIRECTED 12/17 completed Not Available Not Available Not Available simvastatin 40 mg tablet TAKE 1 TABLET BY MOUTH DAILY active Not Available Not Available No t Available meloxicam 7.5 mg tablet TAKE 1 TABLET BY MOUTH DAILY 12/17 completed Not Available Not Available Not Available OneTouch Ultra Test strips USE TO TEST BLOOD SUGAR EVERY DAY active Not Available Not Available No t Available simvastatin 20 mg tablet active Not Available Not Available Not Available Lorcet 10 mg-650 mg tablet Take 1 tablet 4 times a day by oral route as needed. 08/28 completed Not Available Not Available Not Available niacin 500 mg tablet TAKE 1 TABLET BY MOUTH EVERY NIGHT AT BEDTIME 2023 active Not Available Not Available Not Avai lable Levaquin 500 mg tablet Take 1 tablet every 24 hours by oral route. active Not Available Not Available No t Available lisinopril 10 mg-hydrochl orothiazide 12.5 mg tablet active Not Available Not Available Not Available albuterol sulfate HFA 90 mcg/actuati on aerosol inhaler Inhale 1 puff every 4 hours by inhalatio n route as needed. 2023 active Not Available Not Available Not Avai lable Microlet Lancet TEST ONCE A DAY active Not Available Not Available No t Available oxycodone 5 mg tablet 12/17 completed Not Available Not Available Not Available Cinnamon 500 mg capsule Take 2 capsules every day by oral route. active Not Available Not Available No t Available niacin 03/23 completed Not Available Not Available Not Available Nelda Low Dose Aspirin daily 03/23 completed Not Available Not Available Not Available Contour Control Solution, Normal active Not Available Not Available Not Available Accu-Chek FastClix Lancing Device active Not Available Not Available Not Available Accu-Chek Vandana Plus Meter active Not Available Not Available Not Available Eliquis 5 mg tablet TAKE 1 TABLET BY MOUTH TWICE DAILY 10/17 completed Not Available Not Available Not Available Stimulant Laxative Plus 8.6 mg-50 mg tablet TAKE 2 TABLETS BY MOUTH EVERY NIGHT NEEDED FOR CONSTIPAT ION 12/17 completed Not Available Not Available Not Available Anoro Ellipta 62.5 mcg-25 mcg/actuati on powder for inhalation INHALE 1 PUFF BY MOUTH EVERY DAY 11/10 completed Not Available Not Available Not Available metoprolol tartrate 37.5 mg tablet TAKE 1 TABLET BY MOUTH TWICE DAILY active Not Available Not Available No t Available Trelegy Ellipta 100 mcg-62.5 mcg-25 mcg powder for inhalation Inhale 1 puff every day by inhalatio n route. 03/24 completed Not Available Not Available Not Available OneTouch Ultra Blue Test Strip USE TO TEST BLOOD SUGAR EVERY DAY 12/17 completed Not Available Not Available Not Available magnesium 400 mg (as magnesium oxide) tablet Take 1 tablet twice a day by oral route. active Not Available Not Available No t Available OneTouch Delica Plus Lancet 33 gauge USE TO TEST BLOOD SUGAR ONCE DAILY 12/17 completed Not Available Not Available Not Available Breztri Aerosphere 160 mcg-9mcg-4. 8mcg/actuat ion HFA aerosol inhaler Inhale 2 puffs twice a day by inhalatio n route. 2024 active Not Available Not Available Not Avai lable Vitals Date Recorded Body height Body weight Heart rate Body temperature Oxygen saturation Oxygen saturation in Arterial blood by Pulse oximetry Inhaled oxygen flow rate Systolic blood pressure Diastolic blood pressure Provider Name and Address Organization Details Last Updated DateTime 4 180.34 cm 21031.1 8 g 53 /min 97.2 [degF] 91 % 91 % 2 L/min 120 mm[Hg] 80 mm[Hg] ABRAHAM Redman [employer] [facility] [employer] 4 10:38:13 Date Recorded Body height Body mass index (BMI) Body weight Body temperature Heart rate Systolic blood pressure Diastolic blood pressure Provider Name and Address Organization Details Last Updated DateTime 4 180.34 cm 25.9 kg/m2 17214.1 8 g 97.4 [degF] 66 /min 122 mm[Hg] 80 mm[Hg] Brenda Quiroz MA [employer] 4 09:56:02 Date Recorded Oxygen saturation Oxygen saturation in Arterial blood by Pulse oximetry Heart rate Respiratory rate Provider Name and Address Organization Details Last Updated DateTime 10/18/2023 85 % 85 % 66 /min 15 /min Diaz Simental MD [address] [place] [address], [facility] [address], [place], [address], [employer] 4 10:06:51 Date Recorded Body height Provider Name an d Address Organization Details Last Updated DateTime 01/11/2024 180.34 cm Evelyn Page CMA [employer] [facility] [employer] 01/11/2024 09:30:44 Date Recorded Body mass index (BMI) Body weight Body temperature Oxygen saturation Oxygen saturation in Arterial blood by Pulse oximetry Systolic blood pressure Diastolic blood pressure Provider Name and Address Organization Details Last Updated DateTime 4 26.2 kg/m2 85053.3 7 g 97.8 [degF] 86 % 86 % 118 mm[Hg] 76 mm[Hg] Tena Sr MA [facility] [employer] [facility] 4 09:42:25 Date Recorded Heart rate Respiratory rate Oxygen saturation Oxygen saturation in Arterial blood by Pulse oximetry Inhaled oxygen flow rate Heart rate Provider Name and Address Organization Details Last Updated DateTime 4 59 /min 14 /min 92 % 92 % 2 L/min 59 /min Diaz Simental MD [address] [facility], [facility] [address], [place], [address], [facility] [employer] [facility] 4 10:17:51 Date Recorded Body height Body mass index (BMI) Body weight Heart rate Body temperature Oxygen saturation Oxygen saturation in Arterial blood by Pulse oximetry Inhaled oxygen flow rate Systolic blood pressure Diastolic blood pressure Provider Name and Address Organization Details Last Updated DateTime 4 180.34 cm 26.9 kg/m2 36521.3 3 g 60 /min 97.6 [degF] 93 % 93 % 2 L/min 128 mm[Hg] 80 mm[Hg] ABRAHAM Redman [facility] [employer] [facility] 4 10:20:39 Date Recorded Body height Body mass index (BMI) Body weight Heart rate Oxygen saturation Oxygen saturation in Arterial blood by Pulse oximetry Systolic blood pressure Diastolic blood pressure Provider Name and Address Organization Details Last Updated DateTime 5 180.34 cm 25.8 kg/m2 85658.5 9 g 67 /min 90 % 90 % 120 mm[Hg] 64 mm[Hg] Sisi Maria [facility] [employer] 5 10:42:31 Social History Question Answer Notes LastModified by Organizat ion Details LastModified Time Tobacco Smoking Status Former Smoker Tena Sr MA [facility] [employer] 11/10/2022 14:33:56 What Is Your Level Of Caffeine Consumption? Moderate Information not available 11/10/2022 In The 14 Days Before Symptom Onset, Have You Had Close Contact With A Laboratory-confi rmed COVID-19 While That Case Was Ill? No Information not available 11/10/2022 In The 14 Days Before Symptom Onset, Have You Had Close Contact With A Person Who Is Under Investigation For COVID-19 While That Person Was Ill? No Information not available 11/10/2022 What Type Of Diet Are You Following? REGULAR Information not available 11/10/2022 Do You Have An Electrostatic Air Filter? No Information not available 11/10/2022 When Did You Quit Smoking? 1-5yearssincelastghulam aguila Information not available 11/10/2022 Do You Have A Humidifier? Yes Information not available 11/10/2022 Where Do You Live? SingleLevelHouse Information not available 10/18/2023 Do You Have Moisture Problems In Your Home? No Information not available 11/10/2022 What Was The Date Of Your Most Recent Tobacco Screening? 10/18/2023 Information not available 10/18/2023 Do You Have Any Pets? No Information not available 11/10/2022 Do You Use Your Seat Belt Or Car Seat Routinely? Yes Information not available 11/10/2022 Do You Have Smoke And Carbon Monoxide Detectors In Your Home? Yes Information not available 11/10/2022 Are You Passively Exposed To Smoke? No Information not available 11/10/2022 Do You Use Sunscreen Routinely? No Information not available 11/10/2022 Have You Recently Traveled Abroad? No Information not available 11/10/2022 Do You Have Any Dietary Restrictions? No Information not available 11/10/2022 Sex: Unknown Functional Status Question Answer Note LastModified by Organizat ion Details LastModified Time Do you use any illicit or recreational drugs? No Information not available 11/10/2022 What is your level of alcohol consumption? Moderate Information not available 11/10/2022 Are you currently employed? No retired Information not available 11/10/2022 Have you been exposed to chemicals or toxins? Not that aware of Information not available 10/18/2023 What is your exercise level? None Information not available 11/10/2022 Mental Status Question Answer Note LastModified by Organization D etails LastModified Time Do you feel stressed (tense, restless, nervous, or anxious, or unable to sleep at night)? [id number] justino Information not available 10/18/2023 Family History Relationship Description Onset Age of this Age Resolved Age Notes LastModified by Organization Details LastModified Time Father Chronic obstructive pulmonary disease [facility] Not available 2022 15:15:13 Brother Chronic obstructive pulmonary disease [email or web address] Not available 2022 15:15:20 Brother Coronary artery bypass graft [facility]5 Not available 07/2023 15:41:49 Notes:Abstracted Information 08-28-2018: Follow up for HTN, Cholesterol, PVD and carotid stenosis all stable. Check blood work and Cologuard test and follow up in six months. 02-26-2019: HTN Cholesterol PVD BDM stable. Check blood work. Refuses colonoscopy or Cologuard. Check back in six months. 09-24-2019: HTN Cholesterol DM PAD all stable. Continues to smoke. Check a CT of thorax if he will perform. Check blood work and follow up in six months. Established Problem(s) #1. Essential Hypertension: Stage: Stage I Interval Neurological Complaints none. No shortness of breath, orthopnea or cardiovascular symptoms. No other symptoms related to end organ damage. Pressure has been under fair control. Currently normal. No other end organ symptoms or findings. Therapy reviewed regarding management of hypertension and includes salt restriction and Norvasc. #2. Type II Hypercholesterolaemia: Currently taking medication and tolerating well. No interval complaints of any muscle pain or arthralgia. No significant liver changes with medications. Last lipid panel: fair control. Therapy reviewed regarding treatment of cholesterol management and include diet and Niacin and Zocor. #3. Type II Diabetes: Has had no polyuria polyphagia or polydipsia. Has had no hypoglycemic like responses. No new history of any numbness, tingling, weakness or visual problems. No nausea, anorexia or other constitutional symptoms. There has been no foot problems or non healing lesions. The last HAIC was DCCT HAIC: 6.4 Calculated MB mg%. Average blood sugars 100-115 mg%. Checking sugars : infrequently Medication Types Include: diet Secondary complications include none. Macro-vascular complications include peripheral vascular disease and carotid stenosis. Therapy reviewed regarding diabetic management and include diet only Compliance: good Renal Protection: calcium blockers Lipid management: statins Urinary microalbumin: within normal limits. Ophthalmological: has seen eye doctor within the last year #4. Hx of peripheral vascular disease. There has been no increase in intensity, severity or duration of claudication symptoms. Exertional capacity has remained essentially unchanged. Is able to walk several blocks without developing any claudication. No rest pain noted. Medical History Condition Response NERVE DISEASE N BLINDNESS N RHEUMATIC FEVER N KIDNEY STONES N BLADDER PROBLEMS N MRSA N OTHER # 1 N POLIO N LUNG DISEASE/DISORDER N HISTORY OF DRUG ABUSE N RADIATION / CHEMOTHERAPY N COPD N Other # 2 N BLOOD DISEASES N EAR OR HEARING PROBLEMS N MUMPS N SHINGLES N BOWEL PROBLEMS N DEPRESSION (INCLUDING POST ) N STROKE/TIA N ULCERS N BENIGN PROSTATIC HYPERPLASIA N MEASLES N HYPOTENSION N MYOCARDIAL INFARCTION N OBESITY N GERD/NAUSEA N ANEURYSM N URINARY/BLADDER/KIDNEY PROBLEMS N CORONARY ARTERY DISEASE (CAD) N ADDICTION CONCERNS N Impotence N ENDOMETRIOSIS N USE OF BLOOD THINNERS N SKIN PROBLEMS N GASTROINTESTINAL DISORDER N PERIPHERAL VASCULAR DISEASE N MUSCLE,JOINT OR BONE PROBLEMS N GASTROINTESTINAL BLEEDING N BLOOD CLOTS N ASTHMA N CATARACTS N ERECTILE DYSFUNCTION N VARICOSITIES N GI PROBLEMS N Low Testosterone N INFERTILITY N AIDS/HIV N CHEMOTHERAPY / RADIATION N LIVER DISEASE N MALE HYPOGONADISM N HYPERTENSION Y Deficiency N TOURETTE'S N ANXIETY DISORDER N BLOOD TRANSFUSION N ANEMIA/BLOOD DISORDER N CHRONIC EAR INFECTIONS N BRONCHITIS N TUBERCULOSIS N GLAUCOMA N FOOT PROBLEM N DIVERTICULITIS N SLEEP APNEA N CHICKENPOX N INFECTIOUS DISEASE N PROSTATE N HEART ARRHYTHMIA N INSOMNIA N HIGH CHOLESTEROL / HYPERLIPIDEMIA Y EYE PROBLEMS N HYPERTHYROIDISM N EDEMA N CHRONIC PAIN SYNDROME N HYPOTHYROIDISM N CONSTIPATION N CAROTID BLOCKAGE N BACK / NECK PROBLEMS N HAVE YOU BEEN HOSPITALIZED OR SEEN IN [facility] IN THE PAST YEAR ? N ATHEROSCLEROSIS N BREAST PROBLEMS N DIALYSIS N ECZEMA N OSTEOPOROSIS N ARTHRITIS N NO SIGNIFICANT PAST MEDICAL HISTORY N APPENDICITIS N DIABETES, TYPE Y BAD TEETH N ENT N HEARTBURN / REFLUX N AUTISM SPECTRUM DISORDER (ASD) N HEPATITIS / LIVER DISEASE N GOUT N SLEEP DISORDER N ALZHEIMER'S DISEASE N Brain Problems N DEMENTIA N HERPES N SEIZURES/EPILEPSY N HEADACHES/MIGRAINES N VASCULAR DISEASE N PACEMAKER N Blood Disorder N DIZZINESS N HEART DISEASE/HEART PROBLEMS Y KIDNEY DISEASE N MULTIPLE SCLEROSIS N CANCER: SPECIFY N CARDIAC ARRHYTHMIA N ATRIAL FIBRILLATION N Gall Stones N PULMONARY EMBOLISM N AUTOIMMUNE DISEASE N Immunizations Vaccine Type Date Status Note Provider [facility] e and Address Organization Details Recorded Time COVID-19 Non-US Vaccine, Product Unknown 1 completed Not Available [employer] 01/03/2023 05:37:27 COVID-19 Non-US Vaccine, Product Unknown 1 completed Not Available [facility] 01/03/2023 05:37:27 SARS-COV-2 (COVID-19) vaccine, UNSPECIFIED 1 completed Not Available [facility] 01/03/2023 05:37:27 Influenza, split virus, quadrivalent, preservative 1 completed Not Available [facility] 01/03/2023 05:37:27 pneumococcal polysaccharide PPV23 1 completed Not Available [facility] 01/03/2023 05:37:27 Pneumococcal conjugate PCV 13 0 completed Not Available [facility] 01/03/2023 05:37:27 Past Encounters Encounter ID Performer Location Encounter Start Date Encounter Closed Date Diagnosis/Indication Diagnosis SNOMED-CT Code Diagnosis ICD10 Code Diagnosis Note [id number] Bryon Cordoba MD [facility] Internal Med [facility] [address] [address] 03/23/2021 00:00:00 03/23/2021 10:34:37 [id number] Bryon Cordoba MD [facility] Internal Med [facility] [address] [address] 09/21/2021 00:00:00 09/21/2021 10:43:40 [id number] Bryon Cordoba MD S_[facility] Internal Med [facility] [address] [address] 12/17/2021 00:00:00 12/17/2021 14:49:26 [id number] Bryon Cordoba MD S[facility] Internal Med [facility] [address] [address] 03/22/2022 00:00:00 03/22/2022 10:36:52 [id number] Bryon Cordoba MD S[facility] Internal Med [facility] [address] [address] 09/20/2022 00:00:00 09/20/2022 11:10:25 [id number] Diaz [facility]imental [facility] [address] [place] [id number] 11/10/2022 14:14:00 11/10/2022 15:36:41 Dyspnea on exertion 23845600 R06.09 R05.9 T78.40XA D89.9 Severe chr onic obstructive pulmonary disease 814422687 J44.9 Ex-smoker 6986102 Z87.89 1 F17.218 F17.219 [id number] Diaz Simental MD [facility] [address] [place] [id number] 12/22/2022 10:53:50 12/23/2022 08:33:08 Severe chronic obstructive pulmonary disease 730719245 J44.9 Ex-smoker 8758569 Z87.89 1 F17.218 F17.219 [id number] Bryon Cordoba MD S[facility] Internal Med [facility] [address] [place] [id number] 03/21/2023 10:19:31 03/21/2023 11:05:59 Essential hypertension 95407550 I10 Atrial fibrillation 4943 6004 I48.91 Hyperlipidemia 23149837 E78.5 Peripheral vascular disease 433926174 I73.9 Type 2 eugenia betes mellitus 23846763 E11.9 Severe chr onic obstructive pulmonary disease 321179111 J44.9 Disorder of prostate 302 [address] N42.9 [id number] Bryon Cordoba MD [facility] Internal [place] [address] [place] [address] 09/26/2023 10:30:12 09/26/2023 11:10:38 Carotid artery stenosis 96285812 I65.29 Atrial fibrillation 4943 6004 I48.91 Essential hypertension 44353917 I10 Type 2 eugenia betes mellitus 66208738 E11.9 Peripheral vascular disease 291215683 I73.9 Hyperlipidemia 54750762 E78.5 Severe chr onic obstructive pulmonary disease 010527609 J44.9 [id number] Diaz Simental MD [facility] [address] [place] [id number] 10/18/2023 09:35:57 10/19/2023 09:14:20 Severe chronic obstructive pulmonary disease 361005405 J44.9 Ex-smoker 5725401 Z87.89 1 F17.218 F17.826 [id number] Diaz Simental MD [facility] [place] [address] [place] [id number] 01/11/2024 09:02:24 01/12/2024 09:02:32 Severe chronic obstructive pulmonary disease 297117964 J44.9 Ex-smoker 3250400 Z87.89 1 F17.218 F17.417 [id number] Bryon Cordoba MD S_[facility] Internal [facility] [address] [address] 03/26/2024 10:13:38 03/26/2024 10:35:06 Essential hypertension 40956209 I10 Hyperlipidemia 50799851 E78.5 Type 2 eugenia betes mellitus 05934338 E11.9 Atrial fibrillation 4943 6004 I48.91 Severe chr onic obstructive pulmonary disease 190318698 J44.9 [id number] Bryon Cordoba MD S[facility] Internal Med [facility] [address] [address] 09/24/2024 10:40:46 09/24/2024 11:03:02 Essential hypertension 99048683 I10 Atrial fibrillation 4943 6004 I48.91 Type 2 eugenia betes mellitus 82853177 E11.9 Peripheral vascular disease 669108323 I73.9 Hyperlipidemia 57984609 E78.5 Chronic ob structive pulmonary disease 36095664 J44.9 Health Concerns Section Related Observation LastModified by Organization Detai ls LastModified Time None Recorded Concern Status LastModified by Organization Details LastModified Time None Recorded Advance Directives Directive None Recorded Payers Encounter Date Sequence Insurance Name Policy Number Policy Benitez Covered Member ID Benitez Member ID Guarantor Name 09/26/2023 1 [facility] (MEDICARE REPLACEMENT/A DVANTAGE - HMO) [id number] Stevenson Mckeon [id number] Stevenson Mckeon 10/18/2023 1 [facility] (MEDICARE REPLACEMENT/A DVANTAGE - HMO) [id number] Stevenson Mckeon [id number] Stevenson Mckeon 01/11/2024 1 [facility] (MEDICARE REPLACEMENT/A DVANTAGE - HMO) [id number] Stevenson Mckeon [id number] Stevenson Mckeon 03/26/2024 1 [facility] (MEDICARE REPLACEMENT/A DVANTAGE - HMO) [id number] Stevenson Mckeon [id number] Stevenson Mckeon 09/24/2024 1 [facility] (MEDICARE REPLACEMENT/A DVANTAGE - HMO) [id number] Stevenson Mckeon [id number] Stevenson Mckeon Notes Date Note Type Note Provider Name and Address Organization Details Recorded Time 09/26/2023 text/html Patient Name: Darius MckeonDate Of Service: Tuesday ( 09.26.2023 ): 1955 Age: 68 There has been approximately a .5 lb weight loss since 03/21/2023. This represents approximately a .3% change in weight. Weight change attributable to lifestyle changes. Vital Signs:Blood Pressure: Sitting Rt. Arm 120/80Pulse: Sitting 63 /min and RegularRespiratory Rate: 12Height 72 in or 1.8 mWeight 186 lb or 84.4 kgBMI 25.2Temperature: 97.2 F or 36.2 CPulse Oximetry: 91 % at rest on oxygen Chief Complaint: Addressed in HPI Problems or conditions discussed in the HPI were the only ones reviewed during the encounter.Only social and family history addressed in the HPI were reviewed during this encounter. Attendant(s): NoneConstitutional and Systemic Symptoms:none Medication Reconciliation: from medication list. Ztazluymscg94/28/2022: Echocardiogram demonstrated an estimated ejection fraction of 50%. Moderate enlargement of right ventricle noted. There is nonspecific thickening of the mitral valves with mild mitral regurgitation. 09/09/2022: Pulmonary function testing shows severe obstructive lung disease with a restrictive component and some diffusion defect. Reversible response to bronchodilators History of Present Illness #1. Coronary Artery Disease: There has been no change in frequency - duration - intensity in frequency, duration or intensity of chest pain. Other Complaints: none The frequency of anginal attacks is several times per week. Additional Symptoms: none Therapy reviewed regarding cardiovascular management includes Amlodipine, Lasix, Metoprolol Tartrate, Niacin and Zocor #2. Essential Hypertension: Stage: Stage I Interval Neurological Complaints no headaches, dizziness, weakness, visual changes, ataxia, aphasia and apraxia. No shortness of breath, orthopnea or cardiovascular symptoms. No other symptoms related to end organ damage. Pressure has been under excellent control. Currently normal. No other end organ symptoms or findings. Therapy reviewed regarding management of hypertension and includes salt restriction and Amlodipine and Metoprolol Tartrate. #3. Atrial Fibrillation: Type: Paroxysmal with recurrent episodes lasting less than 7 days. Further classification: Non-valvular. Associated history of HTN and Vascular disease. No attending hx of any shortness of breath, palpitations, syncopal or neurological symptoms. Current medications: Metoprolol Tartrate. Rate control: controlled ventricular response [id number] Criteria: hypertension, Age 65-74 and and considered moderate risk for embolic phenomenon. Anticoagulation: ASA per cardiology #4. Type II Hypercholesterolaemia: Currently taking medication and tolerating well. No interval complaints of any muscle pain or arthralgia. No significant liver changes with medications. Last lipid panel: fair control. Therapy reviewed regarding treatment of cholesterol management and include diet and Zocor. #5. Hx of peripheral vascular disease. There has been no increase in intensity, severity or duration of claudication symptoms. Exertional capacity has remained essentially unchanged. Is able to walk one block without developing any claudication. No rest pain noted. #6. COPD: Hx of Emphysema currently stable. There has been no interval change in exercise tolerance an shortness of breath. No change in sputum production, color or consistency. No fever, chills, weight loss or other constitutional symptoms. Gold Scale: Severe. MRC Scale: normal walking. Smoking: not currently smoking Current medications: Breztri Using nebulizer Treatments: No. Uses supplemental oxygen#7. Type II diabetes stable HAIC 6.9 Calculated MBG 151. On no medications Active Medication ListBreztri 160; 4.8; UG; UG AEROSOL, METERED 2 Puffs Twice A DayAmlodipine 5 MG TABLET Once DailyMetoprolol Tartrate 37.5 MG TABLET, FILM COATED One Twice A DayAlbuterol Sulfate Hfa 2 Puffs Four Times A DayZocor 40 MG (TABLET - ORAL) One Hs For CholesterolLasix 40 MG (TABLET - ORAL) Once DailyNiacin 500 MG TABLET One DailyOxygen 2 Liters Nasal Canula Adverse Drug Reactions ReviewedPenicillin RashAce Inhibitors Angioedema Vaccination and Mefxaszxwgyo8977-93 Covid Booster Fdiblfj7240-85 Cthwehpra1483-38 Ieyoadkwt9618-38 Covid Anfkqvd6079-30 Prevnar 13 Gc Surgical Uyxpqyp5127-86 Left Great Toe Gxwdsjqfzx7139-83 Right Femoral Popliteal Vqodk9288-79 Superficial Femoral Artery Bilateral Cwgkscpzcm1609-74 Left Carotid Qujpausmkhrmkr2390-66 Rt. Neck Surgery Preventative Qeyamgo7004/05/2023 ALBUMIN 4.3 G/DL N004/05/2023 PSA 3.71 NG/ML N004/05/2023 MICRO ALBUMIN >1140.0 MG/L H004/05/2023 HAIC 6.9 % H010/01/2021 COLOGUARD 10/01/2024 Social HistorySmokes 2 packs daily for 30 + years. 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 Family HistoryMother living 81 with Type II diabetesFather 73 from lung cancerHas three brothers two living one has ASHD(1)Has one from CAD TEST RESULT RANGE UNITSHEMOGLOBIN A1C Date: 04/05/2023HA1C 6.9 4.0-6.0 %LIPID PANEL Date: 04/05/2023HOLESTEROL 168 140-199 MG/DLTRIGLYCERIDES 148 0-150 MG/DLHDL CHOLESTEROL 38 40- MG/DLLDL CHOLESTEROL, CALCULATED 100 0-130 MG/DL Bryon Cordoba MD [address] [address], [place], [address], [facility] [employer] [facility] 09/26/2023 11:06:33 10/18/2023 text/html Primary care/Ref erring provider: Ruben Greenwood MD; Bryon Cordoba MD Patient is here to go over his COPD management. Initial development of shortness of breath: 2020Duration of shortness of breath: 4 yearsCondition of shortness of breath: stableTiming of shortness of breath: noonFrequency: up to 4 times a dayLimits activities: yesAggravating factors: walking, doing laundry, picking up after himselfAlleviating factors: rest Modified [employer] [place] (mMRC) Dyspnea Scale - Grade 1Grade 0 I only get breathless with strenuous exercise .Grade 1 I get short of breath when hurrying on the level or walking up a slight hill .Grade 2 I walk slower than people of the same age on the level because of breathlessness or have to stop for breath when walking at my own pace on the level .Grade 3 I stop for breath after walking about 100 yards or after a few minutes on the level .Grade 4 I am too breathless to leave the house or I am breathless when dressing . Treatment history: Trelegy Ellipta 1 inhalation daily 09/2019 only, quit due to pricing Anoro Ellipta 1 inhalation daily 03/2022 only, quit due to pricing Albuterol HFA as needed since 2020 Other symptoms:Drooling: noDysarthria: noNeck pain: noOdynophagia: noDysphagia: noWeak mastication: noFacial weakness: noNasal speech: noProtruding tongue: noProductive cough: noWheezing: noChest tightness: yesOrthopnea: noFrequent throat clearing or swallowing: noPalpitations: noHeartburn: noEdema: no Environmental exposures:Nicotine smoke: 1.5 ppd 9963-2000 =78 pack yearsPaint: noDye: noDust mites: yesMold: noDamp basement: noWood burning stove: noAnimal dander: noCockroaches: noPollen: yesArsenic: noAsbestos: noBeryllium: noCadmium: noChromium: noCoal smoke: noDiesel fumes: noNickel: noSilica: noSoot: no EPWORTH SLEEPINESS SCALE (ESS) CHANCE OF DOZING SCORE0 = would never doze1 = slight chance of dozing2 = moderate chance of dozing3 = high chance of dozing SITUATION AND CHANCE OF DOZINGSitting and reading - 0Watching television - 0Sitting inactive in a public place (e.g. a theater or meeting) - 0As a passenger in a car for an hour without a break - 0Lying down to rest in the afternoon when circumstances permit - 3Sitting and talking to someone - 0Sitting quietly after lunch without alcohol - 0In a car, while stopped for a few minutes in the traffic - 0TOTAL SCORE 3Subjectively, patient has a slight chance of dozing. Diaz Simental MD [address] [place] [address], [facility] [address], [place], [address], [facility] [employer] [facility] 10/18/2023 10:23:27 01/11/2024 text/html Primary care/Ref erring provider: Ruben Greenwood MD; Bryon Cordoba MD Patient is here to go over his COPD management. Initial development of shortness of breath: 2019Duration of shortness of breath: 4 yearsCondition of shortness of breath: stableTiming of shortness of breath: noonFrequency: up to 4 times a dayLimits activities: yesAggravating factors: walking, doing laundry, picking up after himselfAlleviating factors: rest Modified [employer] [place] (mMRC) Dyspnea Scale - Grade 1Grade 0 I only get breathless with strenuous exercise .Grade 1 I get short of breath when hurrying on the level or walking up a slight hill .Grade 2 I walk slower than people of the same age on the level because of breathlessness or have to stop for breath when walking at my own pace on the level .Grade 3 I stop for breath after walking about 100 yards or after a few minutes on the level .Grade 4 I am too breathless to leave the house or I am breathless when dressing . Treatment history: Trelegy Ellipta 1 inhalation daily 09/2019 only, quit due to pricing Anoro Ellipta 1 inhalation daily 03/2022 only, quit due to pricing Albuterol HFA as needed since 2020 Other symptoms:Drooling: noDysarthria: noNeck pain: noOdynophagia: noDysphagia: noWeak mastication: noFacial weakness: noNasal speech: noProtruding tongue: noProductive cough: noWheezing: noChest tightness: yesOrthopnea: noFrequent throat clearing or swallowing: noPalpitations: noHeartburn: noEdema: no Environmental exposures:Nicotine smoke: 1.5 ppd 5800-0414 =78 pack yearsPaint: noDye: noDust mites: yesMold: noDamp basement: noWood burning stove: noAnimal dander: noCockroaches: noPollen: yesArsenic: noAsbestos: noBeryllium: noCadmium: noChromium: noCoal smoke: noDiesel fumes: noNickel: noSilica: noSoot: no EPWORTH SLEEPINESS SCALE (ESS) CHANCE OF DOZING SCORE0 = would never doze1 = slight chance of dozing2 = moderate chance of dozing3 = high chance of dozing SITUATION AND CHANCE OF DOZINGSitting and reading - 0Watching television - 0Sitting inactive in a public place (e.g. a theater or meeting) - 0As a passenger in a car for an hour without a break - 0Lying down to rest in the afternoon when circumstances permit - 3Sitting and talking to someone - 0Sitting quietly after lunch without alcohol - 0In a car, while stopped for a few minutes in the traffic - 0TOTAL SCORE 3Subjectively, patient has a slight chance of dozing. Diaz Simental MD [address] [place] [address], [facility] [address], [place], [address], [facility] [employer] [facility] 01/11/2024 10:18:04 03/26/2024 text/html Patient Name: Darius Sahni WhiteDate Of Service: Tuesday ( 03.26.2024 ): 1955 Age: 69 There has been approximately a 7 lb weight gain since 09/26/2023. This represents approximately a 3.8% change in weight. Weight change attributable to lifestyle changes. Vital Signs:Blood Pressure: Sitting Rt. Arm 128/80Pulse: Sitting 60 /min and RegularRespiratory Rate: 14Height 71 in or 1.8 mWeight 193 lb or 87.5 kgBMI 26.9Temperature: 97.6 F or 36.4 CDCCT HAIC: 7.2 Calculated MB mg%Pulse Oximetry: 95 % at rest on oxygen Chief Complaint: Addressed in HPI Problems or conditions discussed in the HPI were the only ones reviewed during the encounter.Only social and family history addressed in the HPI were reviewed during this encounter. Attendant(s): NoneConstitutional and Systemic Symptoms:none Medication Reconciliation: from medication list. Xkhskwqhxix34/09/2023: Pulmonary function testing shows severe obstructive lung disease with a restrictive component and some diffusion defect. Reversible response to bronchodilators 02-10-2024: Echocardiogram technically difficult study. Unable to determine segmental wall motion abnormalities. Hyperdynamic left ventricular function. Normal left ventricular wall thickness. Normal diastolic function.Normal right ventricular size normal right ventricular systolic function. Normal-appearing tricuspid valves. There is mild tricuspid regurgitation. Estimated peak pulmonary artery systolic pressure 24 mmHg. History of Present Illness #1. Essential Hypertension: Stage: normal Interval Neurological Complaints no headaches. No shortness of breath, orthopnea or cardiovascular symptoms. No other symptoms related to end organ damage. Pressure has been under fair control. Currently normal. No other end organ symptoms or findings. Therapy reviewed regarding management of hypertension and includes salt restriction and Amlodipine and Metoprolol Tartrate. #2. Type II Hypercholesterolaemia: Currently taking medication and tolerating well. No interval complaints of any muscle pain or arthralgia. No significant liver changes with medications. Last lipid panel: fair control. Therapy reviewed regarding treatment of cholesterol management and include diet and Zocor. #3. Atrial Fibrillation: Type: Paroxysmal with recurrent episodes lasting less than 7 days. Further classification: Non-valvular. Associated history of none. No attending hx of any shortness of breath, palpitations, syncopal or neurological symptoms. Current medications: Metoprolol Tartrate. Rate control: controlled ventricular response [id number] Criteria: hypertension, Age 65-74 and and considered moderate risk for embolic phenomenon. Anticoagulation: On no medication per Cardiology. Is involved in some study. Has a container which has apixaban or placebo written on it #4. Type II Diabetes: Has had no polyuria polyphagia or polydipsia. Has had no hypoglycemic like responses. No new history of any numbness, tingling, weakness or visual problems. No nausea, anorexia or other constitutional symptoms. There has been no foot problems or non healing lesions. The last HAIC was 7.1-7.5. Average blood sugars 125-150 mg%. Checking sugars : several times a week Medication Types Include: Metformin Secondary complications include none. Macro-vascular complications include none. Therapy reviewed regarding diabetic management and include diet only Compliance: good Renal Protection: starting on a calcium milad Lipid management: statins Urinary microalbumin: A1 . Ophthalmological: has seen eye doctor within the last year #5. COPD: Hx of Emphysema currently stable. There has been no interval change in exercise tolerance an shortness of breath. No change in sputum production, color or consistency. No fever, chills, weight loss or other constitutional symptoms. Gold Scale: Severe. MRC Scale: after a few minutes of walking. Smoking: not currently smoking Current medications: Albuterol Sulfate Hfa and Breztri Using nebulizer Treatments: No. Uses supplemental oxygen Active Medication ListBreztri 160; 4.8; UG; UG AEROSOL, METERED 2 Puffs Twice A DayAmlodipine 5 MG TABLET Once DailyMetoprolol Tartrate 37.5 MG TABLET, FILM COATED One Twice A DayAlbuterol Sulfate Hfa 2 Puffs Four Times A DayZocor 40 MG (TABLET - ORAL) One Hs For CholesterolLasix 40 MG (TABLET - ORAL) Once DailyNiacin 500 MG TABLET One DailyOxygen 2 Liters Nasal Canula Adverse Drug Reactions ReviewedPenicillin RashAce Inhibitors Angioedema Vaccination and Fflgiozmhvfr8055-09 Covid Booster Nwwrokx4427-28 Ukoceflyv7334-45 Qxahhkytj7880-53 Covid Wtrbojx7699-26 Prevnar 13 Gc Surgical Pcsqkve4688-74 Left Great Toe Roqspibhka1593-13 Right Femoral Popliteal Fyptx7333-42 Superficial Femoral Artery Bilateral Qfziwrpfwo8605-95 Left Carotid Ynljjivbzkotja6456-75 Rt. Neck Surgery Preventative Testing( ) 09/26/2023 Albumin 4.6 G/DL H( ) 09/26/2023 Micro Albumin 370.0 MG/L H( ) 09/26/2023 HAIC 7.2 % H( ) 04/05/2023 PSA 3.71 NG/ML N 04/05/2025( ) 10/01/2021 Cologuard 10/01/2024 Social HistorySmokes 2 packs daily for 30 + years. 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 Family HistoryMother living 81 with Type II diabetesFather 73 from lung cancerHas three brothers two living one has ASHD(1)Has one from CAD TEST RESULT RANGE UNITSHEMOGLOBIN A1C Date: 09/26/2023HA1C 7.2 4.0-6.0 %LIPID PANEL Date: 09/26/2023HOLESTEROL 175 140-199 MG/DLTRIGLYCERIDES 151 0-150 MG/DLHDL CHOLESTEROL 47 40- MG/DLLDL CHOLESTEROL, CALCULATED 98 0-130 MG/DLCOMPREHENSIVE METABOLIC PANEL Date: 09/26/2023SODIUM 141 137-145 MMOL/LPOTASSIUM 4.9 3.5-5.1 MMOL/LGLUCOSE 125 70-99 MG/DLBUN 16 8-19 MG/DLCREATININE 1.02 0.66-1.25 MG/DLGFR >60ALKALINE PHOSPHATASE 84 38-126 U/LALANINE AMINOTRANSFERASE 20 0-50 U/LASPARTATE AMINOTRANSFERASE 37 15-46 U/LBILIRUBIN, TOTAL 0.70 0.20-1.30 MG/DLT4 FREE Date: 09/26/2023FREE T4 1.67 0.78-2.19 NG/DLTSH Date: 09/26/2023THYROID-STIMU LATING HORMONE 0.976 0.465-4.680 UIU/ML Bryon Cordoba MD [address] [facility], [facility] [address], [place], [address], [facility] [employer] 03/26/2024 10:32:37 09/24/2024 text/html Patient Name: Darius Sahni WhiteDate Of Service: Tuesday ( 09.24.2024 ): 1955 Age: 69 There has been approximately a 8 lb weight loss since 03/26/2024. This represents approximately a 4.1% change in weight. Weight change attributable to lifestyle changes. Vital Signs:Blood Pressure: Sitting Rt. Arm 120/64Pulse: Sitting 67 /min and RegularRespiratory Rate: 16Height 71 in or 1.8 mWeight 185 lb or 83.9 kgBMI 25.8Temperature: 97 F or 36.1 CPulse Oximetry: 90 % at rest on no oxygen Chief Complaint: Addressed in HPI Problems or conditions discussed in the HPI were the only ones reviewed during the encounter.Only social and family history addressed in the HPI were reviewed during this encounter. Attendant(s): NoneConstitutional and Systemic Symptoms:none Medication Reconciliation: from medication list. Dnlpvbczbso01-21-2094: Echocardiogram technically difficult study. Unable to determine segmental wall motion abnormalities. Hyperdynamic left ventricular function. Normal left ventricular wall thickness. Normal diastolic function.Normal right ventricular size normal right ventricular systolic function. Normal-appearing tricuspid valves. There is mild tricuspid regurgitation. Estimated peak pulmonary artery systolic pressure 24 mmHg. History of Present Illness #1. Essential Hypertension: Stage: Stage I Interval Neurological Complaints no headaches, dizziness, weakness, visual changes, ataxia, aphasia and apraxia. No shortness of breath, orthopnea or cardiovascular symptoms. No other symptoms related to end organ damage. Pressure has been under excellent control. Currently normal. No other end organ symptoms or findings. Therapy reviewed regarding management of hypertension and includes salt restriction and Amlodipine and Metoprolol Tartrate. #2. Type II Hypercholesterolaemia: Currently taking medication and tolerating well. No interval complaints of any muscle pain or arthralgia. No significant liver changes with medications. Last lipid panel: fair control. Therapy reviewed regarding treatment of cholesterol management and include diet and Zocor. #3. Atrial Fibrillation: Type: Paroxysmal with recurrent episodes lasting less than 7 days. Further classification: Non-valvular. Associated history of none. No attending hx of any shortness of breath, palpitations, syncopal or neurological symptoms. Current medications: no specific medication. Rate control: controlled ventricular response [id number] Criteria: Age 65-74 for embolic phenomenon. Anticoagulation: Eliquis #4. Type II Diabetes: Has had no polyuria polyphagia or polydipsia. Has had no hypoglycemic like responses. No new history of any numbness, tingling, weakness or visual problems. No nausea, anorexia or other constitutional symptoms. There has been no foot problems or non healing lesions. The last HAIC was DCCT HAIC: 7.5 Calculated MB mg%. CGM: No. Average blood sugars unknown. Checking sugars : infrequently. Medication Types Include: Cinnamon Secondary complications include none. Macro-vascular complications include none. Therapy reviewed regarding diabetic management and include diet only Compliance: good Renal Protection: Calcium Milad Lipid management: statins Urinary microalbumin: A1 . Ophthalmological: has seen eye doctor within the last year. Control: Intermediate Control 7.1 - 8.0 #5. Hx of peripheral vascular disease. There has been no increase in intensity, severity or duration of claudication symptoms. Exertional capacity has remained essentially unchanged. Is able to walk several blocks without developing any claudication. No rest pain noted. #6. COPD: Hx of Emphysema currently stable. There has been no interval change in exercise tolerance an shortness of breath. No change in sputum production, color or consistency. No fever, chills, weight loss or other constitutional symptoms. Gold Scale: Moderate. MRC Scale: vigorous walking. Smoking: currently smoking and instructed once again on cessation techniques Current medications: none Using nebulizer Treatments: No. Uses supplemental oxygen Active Medication ListBreztri 160; 4.8; UG; UG AEROSOL, METERED 2 Puffs Twice A DayAmlodipine 5 MG TABLET Once DailyMetoprolol Tartrate 37.5 MG TABLET, FILM COATED One Twice A DayAlbuterol Sulfate Hfa 2 Puffs Four Times A DayZocor 40 MG (TABLET - ORAL) One Hs For CholesterolLasix 40 MG (TABLET - ORAL) Once DailyNiacin 500 MG TABLET One DailyOxygen 2 Liters Nasal Canula Adverse Drug Reactions ReviewedPenicillin RashAce Inhibitors Angioedema Vaccination and Immunization(X) 2021-03 INFLUENZA( ) 2020-03 PREVNAR 13 GC( ) 2020-09 COVID MODERNA( ) 2021-04 PNEUMOVAX(X) 2021-05 COVID BOOSTER MODERNA Surgical Lekhxyg3181-82 Left Great Toe Rylfwwvpja3223-43 Right Femoral Popliteal Aszih8129-13 Superficial Femoral Artery Bilateral Nvfmxebiet8887-62 Left Carotid Ahaaswnjyufqzf0302-03 Rt. Neck Surgery Preventative Testing( ) 03/26/2024 HAIC 7.5( ) 09/26/2023 Albumin 4.6 G/DL H( ) 09/26/2023 Micro Albumin 370.0 MG/L H( ) 04/05/2023 PSA 3.71 NG/ML N 04/05/2025( ) 10/01/2021 Cologuard 10/01/2024 Social HistorySmokes 2 packs daily for 30 + years. 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 Family HistoryMother living 81 with Type II diabetesFather 73 from lung cancerHas three brothers two living one has ASHD(1)Has one from CAD Bryon Cordoba MD [address] [facility], [facility] [address], [place], [address], [place] [facility] [place] [employer] 09/24/2024 10:55:35
--- NOTE | 2024-12-18 14:01 | WPDPFTINT ---
PFT Procedure Performed PFT Procedure Performed Spirometry with Pre/Post Bronchodilator Plethysmography (Lung Vol) Diffusing Cap (DLCO) Flow Vol Loop PFT Interpretation This is a pulmonary function test with pre and post-bronchodilator spirometry, plethysmography and diffusing capacity. The test was performed and results interpreted in accordance with the 2019 and 2005 ATS/ERS Task Force guidelines respectively using the Global Lung Function Initiative-2012 reference equations. Patient demonstrated good effort and cooperation. Reproducibility criteria were met. The quality of the pre bronchodilator spirometry maneuver was Grade A and post bronchodilator spirometry maneuver was Grade A. Findings: Spirometry: There is decreased maximal expiratory airflow at all lung volumes with concave expiratory flow tracing. The contour the inspiratory flow tracing is normal. The pre bronchodilator FVC is 3.77 L, 101% predicted. The pre bronchodilator FEV1 is 1.16 L, 41% predicted. The pre bronchodilator FEV1: FVC ratio is 31%. The post bronchodilator FVC is 3.82 L, representing a 1% increase. The post bronchodilator FEV1 is 1.25 L, representing an 8% increase. The post bronchodilator FEV1: FVC ratio is 33%. Plethysmography: The total lung capacity is 8.32 L, 131% predicted. The functional residual capacity is 6.48 L, 182% predicted. The residual volume is 4.55 L, 197% predicted. The residual volume: Total lung capacity ratio is 55%. Diffusing capacity: The diffusing capacity unadjusted for hemoglobin and carboxyhemoglobin is 7.4, 28% predicted. The diffusing capacity adjusted for alveolar volume is 1.56, 40% predicted. Impression: There is a severe obstructive abnormality. There is no significant improvement after inhaling a single dose of albuterol. The increase in residual volume to total lung volume ratio is consistent with hyperinflation from an obstructive abnormality. The diffusing capacity unadjusted for hemoglobin and carboxyhemoglobin is severely decreased and remains moderately decreased when adjusted for alveolar volume. There are no prior studies for comparison
== END 2024-12-18 07:31 | disposition home or self-care (01) ==
PROVIDERS: PCP Internal Medicine; Visit Provider Internal Medicine Pulmonary Disease
DX: J44.9 Chronic obstructive pulmonary disease, unspecified (principal); R94.2 Abnormal results of pulmonary function studies
CPT/HCPCS: 94060; 94726; 94729

== ENCOUNTER 2025-01-09 07:19 | Outpatient (CLI) | payer MEDICARE, SELFPAY ==
--- NOTE | ~2025-01-09 | CT_ITS ---
CT Scan of the Chest without Contrast: Clinical Indication: Lung cancer screening, nicotine dependence Technique: Contiguous sections were acquired throughout the chest without intravenous contrast. Dose reduction technique was used on this scan by utilizing automated exposure control and iterative recon struction technique. The dose-length product (DLP) was 96.48 mGy-cm. Findings: There is no evidence of any significant mediastinal, hilar or axillary lymphadenopathy. The mediastin al soft tissues appear normal. There is no evidence of pleural or pericardial effusion. There is mild right apical scarring with mild to moderate emphysema. 7 mm right upper lobe pulmonary nodule present (axial image 63). Additional 3 mm right upper lobe pulmonary nodules are present (axia l images 67, 68). There is chronic scarring or interstitial disease peripherally in the right middle lobe and right lower lobe. Images through the upper abdomen reveal no abnormalities. Impression: Lung RADS 3: Probably benign. Six-month follow-up CT recommended. Reviewed, dictated and finalized at [facility]. Impression: Lung RADS 3: Probably benign. Six-month follow-up CT recommended.
--- OUTSIDE RECORDS SUMMARY | 2025-01-09 07:26 | XMS_ITS | CONTINUITY OF CARE DOCUMENT ---
Author Name claudia taylor Address Unknown Organization [facility] Address [address] [place] [address] Phone [phone] Care Team Providers Care Thrill Performer Name Role Phone Krystyna GARCIA, Ruben Crawford Unavailable TARI GARCIA, GUZMAN Unavailable TARI GARCIA, GUZMAN Unavailable [phone] PROBLEMS Condition Status Date Provider Notes Cardiology examination active Ruben hernandez MD Hypercholesterolemia active Ruben quesada MD DM - type 2 active Ruben Greenwood MD CHF - systolic active Ruben Greenwood MD HTN essential active Nelsy Scott COPD active Ruben Greenwood MD Tobacco abuse- hx of active Ruben quesada MD Shortness of breath active Ruben Greenwood MD Atrial fib paroxysmal active Ruben colin MD Pleural effusion active Ruben Greenwood MD CHF - diastolic active Ruben Greenwood MD Cardiology examination active Ruben hernandez MD ENCOUNTERS Date Type Provider Location Encounter Diag nosis - In-person encounter Office Visit Ruben Greenwood MD [facility] Cardiology examination - In-person encounter Office Visit Ruben Greenwood MD [facility] Hypercholesterolemia - In-person encounter Office Visit Ruben Greenwood MD [facility] - In-person encounter Office Visit Ruben Greenwood MD [facility] CHF - systolicDM - type 2 - In-person encounter Office Visit Ruben Greenwood MD [facility] HTN essential - In-person encounter Office Visit Ruben Greenwood MD [facility] - In-person encounter Office Visit Ruben Greenwood MD [facility] - In-person encounter Office Visit Ruben Greenwood MD [facility] - In-person encounter Office Visit Ruben Greenwood MD [facility] Cardiology examinationCHF - diastolicPleural effusionAtrial fib paroxysmalShortness of breathTobacco abuse- hx ofCOPD VITAL SIGNS Date Observation Value Provider Body Mass Index (Ratio) 25.20 kg/m2 John Greenwood MD blood pressure, diastolic 77 mm[Hg] Mel yanceystephoneric Curry blood pressure, systolic 135 mm[Hg] Melbc [...] Larry Iorfida blood pressure, cuff size regular [facility] blood pressure, diastolic 78 mm[Hg] [facility] blood pressure, systolic 125 mm[Hg] [facility] Inhaled O2 2 L/min [facility] oxygen saturation, oximetry 87 % [facility] respiratory rate E&M 14 /min Trish M iller pulse rate 91 /min [facility] weight E&M 191 [lb_av] [facility] height E&M 73 [in_i] [facility] Body Mass Index (Ratio) 25.33 kg/m2 John Greenwood MD blood pressure, diastolic 85 mm[Hg] Li nkLogic blood pressure, systolic 133 mm[Hg] Ashley kLogic blood pressure, cuff size regular [facility] blood pressure, diastolic 85 mm[Hg] [facility] blood pressure, systolic 133 mm[Hg] [facility] % [facility] respiratory rate E&M 16 /min Trish M iller pulse rate 66 /min [facility] weight E&M 192 [lb_av] [facility] height E&M 73 [in_i] [facility] Body Mass Index (Ratio) 25.33 kg/m2 John [...] [lb_av] Luz Pathak Inhaled O2 2 L/min Lzu Pathak height E&M 73 [in_i] Luz Lawson Body Mass Index (Ratio) 23.40 kg/m2 John Greenwood MD blood pressure, diastolic 56 mm[Hg] Li nkLog blood pressure, systolic 125 mm[Hg] Ashley [facility] blood pressure, cuff size large Duncan farris [place] blood pressure, diastolic 56 mm[Hg] Duncan farris [place] blood pressure, systolic 125 mm[Hg] [facility] oxygen saturation, oximetry 90 % [facility] respiratory rate E&M 14 /min [facility] pulse rate 62 /min [facility] weight E&M 177.4 [lb_av] [facility] height E&M 73 [in_i] [facility] Body Mass Index (Ratio) 22.69 kg/m2 John [...] Piedranenfe lder height E&M 73 [in_i] Selam Duncanliannaashisharsalan lder ALLERGIES Allergy Name Onset Date Reaction Criticality Status METFORMIN syncopy High Criticality active LISINOPRIL angioedemaallerg ic to esequiel lisinopril caused angioedema High Criticality active PCN High Criticality active HISTORY OF MEDICATION USE Medication Status Instructions Dates Provider Indications Com ments magnesium oxide 400 mg (241.3 mg magnesium) tablet active TAKE 1 TABLET BY MOUTH TWICE DAILY Rafaela Curry furosemide 40 mg tablet active Rafaela Curry simvastatin 40 mg tablet active Rafaela Curry simvastatin 40 mg tablet active TAKE 1 TABLET BY MOUTH DAILY Cris Rushing magnesium oxide 400 mg magnesium tablet active Take 1 tablet by mouth twice a day Ruben Greenwood MD furosemide 40 mg tablet active TAKE 1 TABLET BY MOUTH EVERY DAY Danna Castellanos RN metoprolol tartrate 37.5 mg tablet active TAKE 1 TABLET BY MOUTH TWICE DAILY Danna Castellanos RN Qxionxew-IW-osp vexian/apixaban capsule active Claribel Mccoy RN amlodipine 5 mg tablet active TAKE 1 TABLET BY MOUTH EVERY DAY Claribel Hamptontri Aerosphere 160-9-4.8 mcg/actuation HFA aerosol inhaler active [...] by mouth once a day - Brigitte Dillon Ellipta 62.5-25 mcg/actuation blister with device active [...] tablet by mouth twice a day - Brigitte Little Stimulant Laxative Plus 8.6-50 mg tablet completed [...] Ruben almanza MD smoking, year quit 2021 [facility] number of years as a smoker [address] [facility] smoking history, tot al pack/day 1 [facility] cigarette use yes [facility] smoking status Former smoker [facility] social history reviewed E&M revi ewed - no changes required Ruben Greenwood MD social history E&M S moking History: Ken aceves is a former smoker. Ruben Greenwood MD smoking status Former smoker [facility] social history E&M S moking History: Ken aceves is a former smoker. Ruben Greenwood MD social history reviewed E&M revi ewed - no changes required Ruben Greenwood MD smoking, year quit 2021 Selam Johnathon fatima number of years as a smoker 50 a Selam Renaeer smoking history, tot al pack/day 1 Selamshanika Macdonalder cigarette use yes Selam Holly [facility] smoking status Former smoker Selam Duncantyrone germanelder social history reviewed E&M revi ewed - no changes required Ruben Greenwood MD social history E&M S moking History: Ken aceves is a former smoker. Ruben Greenwood MD smoking, year quit 2021 Selam Duncanvernon enenfelder number of years as a smoker 50 a Selam Duncanmayier smoking history, tot al pack/day 1 Selam Sandhu cigarette use yes Sleam gauthier smoking status Former smoker Selam banegas smoking, year quit 2021 Luz Barron is number of years as a smoker 50 a Luz Pathak smoking history, tot al pack/day 1 Luz Pathak cigarette use yes Luz Pathak smoking status Former smoker Luz Pathak social history E&M S moking History: Ken [...] years as a smoker 50 a Selam Sandhu smoking history, tot al pack/day 3 ppd Selam Sandhu smoking, year quit 2021 Selam Diego kushal cigarette use yes Selam [place] smoking status Former smoker Selam banegas INSURANCE PROVIDERS Payer name Policy type / Coverage type [place] [employer] [facility] Other [employer] Other [employer] MEDICARE ADVANTAGE [address] (HMO POS) Medicare [id number] ADVANCE DIRECTIVES Name Date DISCUSSED - NO DECISION MADE TREATMENT PLAN Date Name Performer [id number],C,H is LV EF was 45-50%. H is [...] 03/01/2022 at 11:39 AM Ruben Greenwood MD [id number],SE sima CONCLUSIONS: 1 . Sledom premature ventricular contractions. [...] 03/01/2022 at 11:39 AM Ruben Greenwood MD [id number],S, S topped smoking N eeds PFTs November [...] S evere Diffusion Defect Ruben Greenwood MD [id number],C, H is updated medication list for this [...] 03/01/2022 at 11:39 AM Ruben Greenwood MD [id number],C, R emain on eliquis 5 BID remains [...] Currently in AFIB N ovember 2022 C urrently in SR. Will see if he can get Librexia-AF. Will give him samples of Eliquis for now. Ruben Greenwood MD [id number],C, H emothorax secondary to thoracentesis, pleural effusion, bilateral, right greater than left. VATS procedure 12/01/21. Hx of COPD, 2-3ppd smoking 50 yrs. Has not f/u with pulmonary will need to schedule May 20, 2022 o n home O2, June 10, 2023 R emains on home O2. Ruben Greenwood MD [id number],C, H is updated medication list for this problem includes: Furosemide 40 Mg Tablet (Furosemide) ..... Take 1 tablet by mouth once a day Metoprolol Tartrate 37.5 Mg Tablet (Metoprolol tartrate) ..... Take 1 tablet by mouth twice a day BP today: 133/85 P rior BP: 126/80 (11/12/2022) Ruben Greenwood MD [id number],C, N eeds PFTs done since he is on home O2. November 12, 2022 S aw pulmonary, started on new Luis Felipe daily, pending CT for lung cance4 r Ruben Greenwood MD [id number],C,D iscussion of benefits for remote patient monitoring [...] mouth twice a day Ruben Greenwood MD [id number],C, H emothorax secondary to thoracentesis, pleural effusion, bilateral, right greater than left. VATS procedure 12/01/21. Hx of COPD, 2-3ppd smoking 50 yrs. Has not f/u with pulmonary will need to schedule May 20, 2022 o n home O2, Ruben Greenwood MD [id number],S,C ONCLUSIONS: 1 . Sledom premature ventricular contractions. [...] 03/01/2022 at 11:39 AM Ruben Greenwood MD [id number],S, N eeds PFTs done since he is on home O2. November 12, 2022 S aw pulmonary, started on Luis Felipe luna, pending CT for lung cance4 r Ruben Greenwood MD [id number],C, S topped smoking N eeds PFTs November [...] S evere Diffusion Defect Ruben Greenwood MD [id number],C, H emothorax secondary to thoracentesis, pleural effusion, bilateral, right greater than left. VATS procedure 12/01/21. Hx of COPD, 2-3ppd smoking 50 yrs. Has not f/u with pulmonary will need to schedule May 20, 2022 o n home O2, Ruben Greenwood MD [id number],C, M ost likely related to his pleural effusion and hx of smoking 3ppd x50yrs. Currently has stopped for few weeks. Requires home O2. c heck echo May 20, 2022 s ees pul[facility]ary at [facility] CONCLUSIONS: 1 . Sledom premature ventricular contractions. [...] 03/01/2022 at 11:39 AM J anuary 2022 Alysia patel PFTs Ruben Greenwood MD [id number],C, R elzbietain on eliquis 5 BID remains [...] issues. Currently in AFIB Ruben Greenwood MD [id number],S,S topped smoking N eeds PFTs Ruben Greenwood MD [id number],C, N eeds PFTs done since he is on home O2. Ruben Greenwood MD [id number],C,D iscussion of benefits for remote patient monitoring took place. Patient gives consent for remote monitoring of physiologic parameters including, but not limited to, weight, blood pressure, pulse oximetry, respiratory flow rate. a llergic to esequiel lisinopril caused angioedema Ruben Greenwood MD [id number],C, M ost likely related to his pleural effusion and hx of smoking 3ppd x50yrs. Currently has stopped for few weeks. Requires home O2. alysia patel echo May 20, 2022 s ees pulomonary at [facility] CONCLUSIONS: 1 . Sledom premature ventricular contractions. [...] 03/01/2022 at 11:39 AM Ruben Greenwood MD [id number],C, H emothorax secondary to thoracentesis, pleural effusion, bilateral, right greater than left. VATS procedure 12/01/21. Hx of COPD, 2-3ppd smoking 50 yrs. Has not f/u with pulmonary will need to schedule May 20, 2022 o n home O2, Ruben Greenwood MD [id number],C, allergic to esequiel lisinopril caused angioedema Ruben Greenwood MD [id number],C, R emain on eliquis 5 BID remains in AFib, failed cardioversion. Currently needs to remain on anticoagulation. February 17, 2022 N SR on EKG today May 20, 2022 A FIB on ekg today, no bleeding on eliquis, says he had to pay $400, has to pay $40 per bottle usually Ruben Greenwood MD [id number],C,C ONCLUSIONS: 1 . Sledom premature ventricular contractions. [...] 03/01/2022 at 11:39 AM Ruben Greenwood MD [id number],S,check echo Sa richy Greenwood MD [id number],C,a llergic to esequiel lisinopril caused angioedema N ormal LV function on echo. EF 55%, mild LAE, mild RUIZ, no significant MR or TR. Ruben Greenwood MD [id number],C, R emain on eliquis 5 BID remains in AFib, failed cardioversion. Currently needs to remain on anticoagulation. February 17, 2022 N SR on EKG today Ruben Greenwood MD [id number],C, H emothorax secondary to thoracentesis, pleural effusion, bilateral, right greater than left. VATS procedure 12/01/21. Hx of COPD, 2-3ppd smoking 50 yrs. Has not f/u with pulmonary will need to schedule Ruben Greenwood MD [id number],C, N eeds PFTs done since he is on home O2. Ruben Greenwood MD [id number],C, M ost likely related to his pleural effusion and hx of smoking 3ppd x50yrs. Currently has stopped for few weeks. Requires home O2. c heck echo Ruben Greenwood MD [id number],S,N eeds PFTs done since he is on home O2. O rders: 9 9205 HIGH 60-74 min (CPT-35361) F VC - 66127 (84147) F RC - 28486 (44358) D LCO - 71368 (57827) A mbulatory Oximetry (CPT-70376) 6 minute walk test (CPT-91320) C XR- PA/Lat (CPT-34023) Ruben Greenwood MD [id number],S,R emain on eliquis 5 BID remains in AFib, failed cardioversion. Currently needs to remain on anticoagulation. Ruben Greenwood MD [id number],S,M ost likely related to his pleural effusion and hx of smoking 3ppd x50yrs. Currently has stopped for few weeks. Requires home O2. Ruben Greenwood MD [id number],C,N ormal LV function on echo. EF 55%, mild LAE, mild RUIZ, no significant MR or TR. Ruben Greenwood MD [id number],C,H emothorax secondary to thoracentesis, pleural effusion, bilateral, right greater than left. VATS procedure 12/01/21. Hx of COPD, 2-3ppd smoking 50 yrs. Ruben Greenwood MD Cardiology:Reviewed his RPM, BP in the 160s, Recommended to increase Norvasc to 5 mg twice a day and see how his BPs are, and then we can increase to a 10 mg pill if he tolerates it Ruben Greenwood MD Cardiology:Currently in sinus rhythm. ON LIBREXIA FOR ANTICOAGULATION H is updated medication list for this problem includes: Metoprolol Tartrate 37.5 Mg Tablet (Metoprolol tartrate) ..... Take 1 tablet by mouth twice daily Amlodipine 5 Mg Tablet (Amlodipine) ..... Take 1 tablet by mouth every day Ruben Greenwood MD Cardiology:CONCLUSIO NS: 1 . [...] 2023 R emains on home O2. [facility] [address] scan done, seeing [...] issues. Currently in AFIB June 10, 2023 Alysia heck in SR. Will see if he [...] stopped for few weeks. Requires home O2. alysia patel echo May 20, 2022 s ees pulomonary at [facility] CONCLUSIONS: 1 . Sledom premature ventricular contractions. [...] 03/01/2022 at 11:39 AM J anuary 2022 Alysia patel PFTs J une [address] [...] BP: 125/78 (07/06/2023) Ruben Greenwood MD Cardiology: R moncho on [...] Currently in AFIB June 10, 2023 C umang in SR. Will see if [...] 11:39 AM Ruben Greenwood MD Cardiology: R emain on eliquis [...] issues. Currently in AFIB June 10, 2023 Alysia heck in SR. Will see if he can get Librexia-AF. Will give him samples of Eliquis for now. July 06, 2023 I n SR today. Not able to get Eliquis. Needs to enroll in Librexa Ruben Greenwood MD Cardiology: N eeds PFTs done since he is on home O2. November 12, 2022 S aw pulmonary, started on new inahler, Memotri, pending CT for lung cance4 r July [...] at 11:39 AM Ruben Greenwood MD Cardiology: Jaime ivan on [...] Currently in AFIB June 10, 2023 C umang in SR. Will see if [...] luna, pending CT for lung cance4 r Ruben [...] luna, pending CT for lung cance4 r Ruben [...] May 20, 2022 s ees pulomonary at [facility] CONCLUSIONS: 1 . Sledom premature ventricular contractions. [...] 03/01/2022 at 11:39 AM J anuary 2022 Alysia patel PFTs Ruben Greenwood MD Cardiology: R [...] stopped for few weeks. Requires home O2. alysia patel echo May 20, 2022 s ees pulomonary at [facility] CONCLUSIONS: 1 . Sledom premature ventricular contractions. [...] lisinopril caused angioedema Ruben Greenwood MD Cardiology: R emain on eliquis [...] or TR. Ruben Greenwood MD Cardiology: R emain on eliquis [...] O rders: 9 9205 HIGH 60-74 min (CPT-43585) F VC - 56033 (78079) F RC - 05787 (10604) D LCO - 07663 (27789) A mbulatory Oximetry (CPT-82904) 6 minute walk test (CPT-74402) C XR- PA/Lat (CPT-18144) Ruben Greenwood MD Cardiology:Remain on eliquis 5 [...] minute walk test Ambulatory Oximetry DLCO - 91995 FRC - 55704 FVC - 23919 HEPATIC FUNCTION MONTANO EL LIPID PANEL RPM (remote patient monitoring) Holter Monitor 48 hr Complete Echo DLCO - 29557 FRC - 92267 FVC - 60700 Holter Monitor 48 hr CXR- PA/Lat 6 minute walk test Ambulatory Oximetry DLCO - 02694 FRC - 21972 FVC - 24693 HISTORY OF PROCEDURES Procedure Date Procedure Name Provider Procedure Notes S tatus EKG Ruben Greenwood MD compl eted Complex e/m visit add on Ruben Greenwood MD completed EKG Ruben Greenwood MD compl eted EKG Ruben Greenwood MD compl eted EKG Ruben Greenwood MD compl eted Ambulatory Oximetry Ruben Greenwood MD completed Spirometry Ruben Greenwood MD compl eted FVC / MVV with bronchodilator - 05130 Ruben Greenwood MD completed BLOOD COUNT HEMOGLOBIN Ruben Greenwood MD completed FRC - 16574 Ruben Greenwood MD comp leted SpO2 w/o 6min walk/titration Ruben Greenwood MD completed SVC - 63981 Ruben Greenwood MD comp leted DLCO - 52111 Ruben Greenwood MD com pleted 6 minute walk test Ruben Greenwood MD completed EKG Ruben Greenwood MD compl eted EKG Ruben Greenwood MD compl eted TYLER Greenwood MD compl eted TYLER Greenwood MD compl eted
--- OUTSIDE RECORDS SUMMARY | 2025-01-09 07:27 | XMS_ITS | Data Portability ---
Author Organization [employer], Main Office Address [address] [place] [address] Assessment Encounter Date Assessment Date Assessment LastModified by Organization Details LastModified Time 10/18/2023 10/18/2023 Assessment: Nicotine smoke: 1.5 ppd 5992-0794 =78 pack years Severe COPD, declined pulm rehab LLL nodule IgE 1033 IU/mL CHF EF 50% Plan: The following were reviewed and explained to the patient: [facility] hospitalization 11/10/21 - 11/13/21 COPD [...] oxygen as COPD is not reversible. The [employer] recommends annual screening for lung [...] 01/11/2024 01/11/2024 Assessment: Nicotine smoke: 1.5 ppd 2636-9082 =78 pack years Severe COPD, declined pulm rehab LLL nodule IgE 1033 IU/mL CHF EF 50% Plan: The following were reviewed and explained to the patient: [facility] hospitalization 11/10/21 - 11/13/21 COPD [...] oxygen as COPD is not reversible. The [employer] recommends annual screening for lung [...] Lab glycohemo globin, total, blood 2024 025 [email or web address] [facility] (Lab), [address] [place], [address], 10/01/2024 13:34:52 microalbu min, urine 2024 025 [facility] (Lab), [address] [place], [address], 10/01/2024 13:34:53 CBC w/ auto diff [email or web address] [place] [address] (Lab), [address] [place], [address], 10/01/2024 13:34:52 TSH, serum or plasma 2024 025 [facility] (Lab), [address] [place], [address], 09/25/2024 04:50:03 T4, free, serum 2024 025 [email or web address] [facility] (Lab), [address] [place], [address], 10/01/2024 13:34:52 CBC w/ auto diff 2024 025 [facility] (Lab), [address] [place], [address], 09/25/2024 04:50:01 glycohemo globin, total, blood 2023 024 [facility] (Lab), [address] [place], [address], 03/26/2024 14:16:26 microalbu min, urine 2023 024 [facility] (Lab), [address] [place], [address], 03/26/2024 16:35:06 CBC w/ auto diff 2023 024 [facility] (Lab), [address] [place], [address], 03/26/2024 13:07:07 lipid panel, serum 2023 024 [facility] (Lab), [address] [place], [address], 03/26/2024 13:59:08 CMP, serum or plasma 2023 024 [facility] (Lab), [address] [place], [address], 03/26/2024 13:59:14 glycohemo globin, total, blood 2023 024 [facility] (Lab), [address] [place], [address], 09/26/2023 12:51:36 microalbu min, urine 2023 024 [facility] (Lab), [address] [place], [address], 09/26/2023 16:11:11 TSH, serum or plasma 2023 024 [facility] (Lab), [address] [place], [address], 09/26/2023 13:40:51 T4, free, serum 2023 024 [facility] (Lab), [address] [place], [address], 09/26/2023 13:11:32 CBC w/ auto diff 2023 024 [facility] (Lab), [address] [place], [address], 09/26/2023 11:42:27 lipid panel, serum 2023 024 [facility] (Lab), [address] [place], [address], 09/26/2023 14:21:47 CMP, serum or plasma 2023 024 [facility] (Lab), [address] [place], [address], 09/26/2023 14:21:53 Referral cardiolog ist referral 2024 025 [email or web address] Not available 10/25/2024 16:53:39 Procedures None recorded. Surgeries None recorded. Imaging LDCT, chest, for lung cancer screening - Nicotine smoke: 1.5 ppd 8760-8359 =78 pack years 2023 025 [email or web address] 2 [facility] [address] [place], [address], 12/10/2024 11:02:09 LDCT, chest, for lung cancer screening - Nicotine smoke: 1.5 ppd 9935-7894 =78 pack years 2023 024 [email or web address] 5 [facility] ([facility]), [address] [place], [address], 12/27/2023 08:52:42 Medication Orders Breztri Aerospher e 160 mcg-9mcg- 4.8mcg/ac tuation HFA aerosol inhaler [email or web address] [place] [address] [id number], [address], [place], [id number], 09/24/2024 10:42:55 albuterol sulfate HFA 90 mcg/actua tion aerosol inhaler [address] [id number], [address], [place], [id number], 01/11/2024 10:10:47 Breztri Aerospher e 160 mcg-9mcg- 4.8mcg/ac tuation HFA aerosol inhaler [email or web address] [place] [address] [id number], [id number], 09/24/2024 10:42:55 albuterol sulfate HFA 90 mcg/actua tion aerosol inhaler 2023 024 [id number], [address], [place], [id number], 10/18/2023 10:20:29 Patient TargetsNo targets recorded. Patient Instructions Encounter Date Encounter Id Patient Instructions Last Modified By Organization Details Last Modified Time 09/26/2023 [id number] Follow-up chacon ry artery disease, hypertension, hyperlipidemia, paroxysmal atrial fibrillation, type 2 diabetes peripheral vascular disease all clinically stable. Will continue on current Rx check blood work consisting of CBC, CMP, lipid, thyroid, hemoglobin A1c and microalbumin. Continue on current Rx follow-up in four months. Portions of the record may have been created with voice recognition software. Occasional wrong-word or [id number]-[id number] substitutions may have occurred due to the inherent limitations of voice recognition software. Read the chart carefully and recognize, using context, where substitutions have occurred. [email or web address] Not available 09/26/2023 11:06:05 10/18/2023 [id number] complete PFT w/ post bronchodilator spirometry* [email or web address] Not available 12/27/2023 08:52:45 01/11/2024 [id number] complete PFT w/ post bronchodilator spirometry* Not available 12/10/2024 11:01:48 03/26/2024 [id number] Follow-up for hypertension, hyperlipidemia, paroxysmal atrial fibrillation, [...] with voice recognition software. Occasional wrong-word or [id number]-j-[id number] substitutions may have occurred due to the inherent limitations of voice recognition software. Read the chart carefully and recognize, using context, where substitutions have occurred. [email or web address] Not available 03/26/2024 10:31:51 Reason for Referral [facility] Therapist Referral for At rial fibrillation Referring Physician: Bryon Cordoba, Internal Medicine, Encounter Date: 09/24/2024 Results Created Date Observation Date Name Description Value Unit Range Abnormal Flag Note LastModifiedBy Organization Detail LastModifiedTime 09/26/19 24 09/26/2023 CBC/C OMPLE TE BLD COUNT W/DIF F white blood cells 9.9 x10'3 /uL 4.2-10 .8 Not Available [facility] (Lab) [address] [place], [address], 09/26/2023 11:42:27 09/26/19 24 09/26/2023 CBC/C OMPLE TE BLD COUNT W/DIF F red blood cells 5.06 x10'6 /uL 4.10-5 .80 Not Available [facility] (Lab) [address] [place], [address], 09/26/2023 11:42:27 09/26/19 24 09/26/2023 CBC/C OMPLE TE BLD COUNT W/DIF F hemoglobin 14.4 g/dL 13.2-1 7.0 Not Available [facility] (Lab) [address] [place], [address], 09/26/2023 11:42:27 09/26/19 24 09/26/2023 CBC/C OMPLE TE BLD COUNT W/DIF F hematocrit 47.6 % 39.3-5 0.0 Not Available [facility] (Lab) [address] [place], [address], 09/26/2023 11:42:27 09/26/19 24 09/26/2023 CBC/C OMPLE TE BLD COUNT W/DIF F mean red cell volume 94.1 fL 80.0-9 7.0 Not Available [facility] (Lab) [address] [place], [address], 09/26/2023 11:42:27 09/26/19 24 09/26/2023 CBC/C OMPLE TE BLD COUNT W/DIF F mean red cell hemoglobin 28.5 pg 27.0-3 3.0 Not Available [facility] (Lab) [address] [place], [address], 09/26/2023 11:42:27 09/26/19 24 09/26/2023 CBC/C OMPLE TE BLD COUNT W/DIF F mean RBC HGB concentratio n 30.3 g/dL 31.0-3 6.0 low Not Available [facility] (Lab) [address] [place], [address], 09/26/2023 11:42:27 09/26/19 24 09/26/2023 CBC/C OMPLE TE BLD COUNT W/DIF F red cell distribution width 15.8 % 11.8-1 5.5 high Not Available [facility] (Lab) [address] [place], [address], 09/26/2023 11:42:27 09/26/19 24 09/26/2023 CBC/C OMPLE TE BLD COUNT W/DIF F platelets 281 x10'3 /uL 150-40 0 Not Available [facility] (Lab) [address] [place], [address], 09/26/2023 11:42:27 09/26/19 24 09/26/2023 CBC/C OMPLE TE BLD COUNT W/DIF F mean platelet volume 10.6 fL 9.0-12 .4 Not Available [facility] (Lab) [address] [place], [address], 09/26/2023 11:42:27 09/26/19 24 09/26/2023 CBC/C OMPLE TE BLD COUNT W/DIF F neutrophils 70.6 % 39.0-7 2.0 Not Available [facility] (Lab) [address] [place], [address], 09/26/2023 11:42:27 09/26/19 24 09/26/2023 CBC/C OMPLE TE BLD COUNT W/DIF F lymphocytes 17.5 % 16.0-4 7.0 Not Available [facility] (Lab) [address] [place], [address], 09/26/2023 11:42:27 09/26/19 24 09/26/2023 CBC/C OMPLE TE BLD COUNT W/DIF F monocytes 9.2 % 5.0-12 .0 Not Available [facility] (Lab) [address] [place], [address], 09/26/2023 11:42:27 09/26/19 24 09/26/2023 CBC/C OMPLE TE BLD COUNT W/DIF F eosinophils 1.7 % 1.0-7. 0 Not Available [facility] (Lab) [address] [place], [address], 09/26/2023 11:42:27 09/26/19 24 09/26/2023 CBC/C OMPLE TE BLD COUNT W/DIF F basophils 0.6 % 0.0-2. 0 Not Available [facility] (Lab) [address] [place], [address], 09/26/2023 11:42:27 09/26/19 24 09/26/2023 CBC/C OMPLE TE BLD COUNT W/DIF F immature granulocytes 0.4 % 0.00-0 .50 Not Available [facility] (Lab) [address] [place], [address], 09/26/2023 11:42:27 09/26/19 24 09/26/2023 CBC/C OMPLE TE BLD COUNT W/DIF F neutrophils, absolute count 6.98 x10'3 /uL 1.5-8. 0 Not Available [facility] (Lab) [address] [place], [address], 09/26/2023 11:42:27 09/26/19 24 09/26/2023 CBC/C OMPLE TE BLD COUNT W/DIF F lymphocytes, absolute count 1.73 x10'3 /uL 1.07-3 .43 Not Available [facility] (Lab) [address] [place], [address], 09/26/2023 11:42:27 09/26/19 24 09/26/2023 CBC/C OMPLE TE BLD COUNT W/DIF F monocytes, absolute count 0.91 x10'3 /uL 0.29-0 .99 Not Available [facility] (Lab) [address] [place], [address], 09/26/2023 11:42:27 09/26/19 24 09/26/2023 CBC/C OMPLE TE BLD COUNT W/DIF F eosinophils, absolute count 0.17 x10'3 /uL 0.02-0 .53 Not Available [facility] (Lab) [address] [place], [address], 09/26/2023 11:42:27 09/26/19 24 09/26/2023 CBC/C OMPLE TE BLD COUNT W/DIF F basophils, absolute count 0.06 x10'3 /uL 0.01-0 .08 Not Available [facility] (Lab) [address] [place], [address], 09/26/2023 11:42:27 09/26/19 24 09/26/2023 CBC/C OMPLE TE BLD COUNT W/DIF F immature granulocytes ,absolute 0.04 x10'3 /uL 0.00-0 .05 Not Available [facility] (Lab) [address] [place], [address], 09/26/2023 11:42:27 09/26/19 24 09/26/2023 CBC/C OMPLE TE BLD COUNT W/DIF F nucleated red blood cells 0.0 % -0 Not Available [facility] (Lab) [address] [place], [address], 09/26/2023 11:42:27 09/26/19 24 09/26/2023 CBC/C OMPLE TE BLD COUNT W/DIF F NRBC# 0.00 x10'3 /uL Not Available [facility] (Lab) [address] [place], [address], 09/26/2023 11:42:27 09/26/19 24 09/26/2023 HEMOG LOBIN A1C HA1C 7.2 % 4.0-6. 0 high Diabe sonal Scree herbert Crite yuly: <5.7% Consi stent with absen ce of diabe sonal 5.7-6 .4% Consi stent with incre ased risk for diabe sonal (pred iabet es) >OR=6 .5% Consi stent with diabe sonal REFER ENCE: Diabe sonal Care 2015, 39(Oconnor ppl.1 ):s13 -s22 Not Available [facility] (Lab) [address] [place], [address], 09/26/2023 12:51:36 09/26/19 24 09/26/2023 T4 FREE free T4 1.67 NG/dL 0.78-2 .19 Not Available [facility] (Lab) [address] [place], [address], 09/26/2023 13:11:32 09/26/19 24 09/26/2023 TSH thyroid-stim ulating hormone 0.976 uIU/m L 0.465- 4.680 Not Available [facility] (Lab) [address] [place], [address], 09/26/2023 13:40:51 09/26/19 24 09/26/2023 LIPID PANEL cholesterol 175 mg/dL 140-19 9 NIH PITA NSUS RECOM MENDA TION FOR BART STERO L: ADULT CHILD LOW RISK: <200 <170 BORDE RLINE : <200- 239 ----- HIGH RISK: >240 >200 Not Available [facility] (Lab) [address] [place], [address], 09/26/2023 14:21:47 09/26/19 24 09/26/2023 LIPID PANEL triglyceride s 151 mg/dL 0-150 high NIH PITA NSUS REPOR T RECOM MENDA TION FOR TRIGL YCERI REY: ADULT CHILD LOW RISK: <150 ----- BODER LINE: 150-1 99 ----- HIGH RISK: >200 ----- Not Available [facility] (Lab) [address] [place], [address], 09/26/2023 14:21:47 09/26/19 24 09/26/2023 LIPID PANEL HDL cholesterol 47 mg/dL 40- Not Available [facility] (Lab) [address] [place], [address], 09/26/2023 14:21:47 09/26/19 24 09/26/2023 LIPID PANEL [...] WILL NOT BE REPOR SANTI. Not Available [facility] (Lab) [address] [place], [address], 09/26/2023 14:21:47 09/26/19 24 09/26/2023 COMPR EHENS BETH METAB OLIC PANEL sodium 141 mmol/ L 137-14 5 Not Available [facility] (Lab) [address] [place], [address], 09/26/2023 14:21:53 09/26/19 24 09/26/2023 COMPR EHENS BETH METAB OLIC PANEL potassium 4.9 mmol/ L 3.5-5. 1 Not Available [facility] (Lab) [address] [place], [address], 09/26/2023 14:21:53 09/26/19 24 09/26/2023 COMPR EHENS BETH METAB OLIC PANEL chloride 101 mmol/ L 98-107 Not Available [facility] (Lab) [address] [place], [address], 09/26/2023 14:21:53 09/26/19 24 09/26/2023 COMPR EHENS BETH METAB OLIC PANEL carbon dioxide 33 mmol/ L 22-30 high Not Available [facility] (Lab) [address] [place], [address], 09/26/2023 14:21:53 09/26/19 24 09/26/2023 COMPR EHENS BETH METAB OLIC PANEL anion gap 11.9 mmol/ L 14-22 low Not Available [facility] (Lab) [address] [place], [address], 09/26/2023 14:21:53 09/26/19 24 09/26/2023 COMPR EHENS BETH METAB OLIC PANEL glucose 125 mg/dL 70-99 high Not Available [facility] (Lab) [address] [place], [address], 09/26/2023 14:21:53 09/26/19 24 09/26/2023 COMPR EHENS BETH METAB OLIC PANEL BUN 16 mg/dL 8-19 Not Available [facility] (Lab) [address] [place], [address], 09/26/2023 14:21:53 09/26/19 24 09/26/2023 COMPR EHENS BETH METAB OLIC PANEL creatinine 1.02 mg/dL 0.66-1 .25 Not Available [facility] (Lab) [address] [place], [address], 09/26/2023 14:21:53 09/26/19 24 09/26/2023 COMPR EHENS BETH METAB OLIC PANEL GFR >60 Refer ence Range : [place] ge GFR Healt hy Adult : >60 [...] or ethni c subgr oups, such as Hisms nics. Outsi de the valid ated ifeoma [...] calcu lator is avail able on the NKF websi te: https :[email or web address] lamas.hector petersen.o arian/cheryl aminal s/kdo qi/gf r_cal culat or Not Available [facility] (Lab) [address] [place], [address], 09/26/2023 14:21:53 09/26/19 24 09/26/2023 COMPR EHENS BETH METAB OLIC PANEL alkaline phosphatase 84 U/L 38-126 Not Available [facility] (Lab) [address] [place], [address], 09/26/2023 14:21:53 09/26/19 24 09/26/2023 COMPR EHENS BETH METAB OLIC PANEL alanine aminotransfe rase 20 U/L 0-50 Not Available [facility] (Lab) [address] [place], [address], 09/26/2023 14:21:53 09/26/19 24 09/26/2023 COMPR EHENS BETH METAB OLIC PANEL aspartate aminotransfe rase 37 U/L 15-46 Not Available [facility] (Lab) [address] [place], [address], 09/26/2023 14:21:53 09/26/19 24 09/26/2023 COMPR EHENS BETH METAB OLIC PANEL bilirubin, total 0.70 mg/dL 0.20-1 .30 Not Available [facility] (Lab) [address] [place], [address], 09/26/2023 14:21:53 09/26/19 24 09/26/2023 COMPR EHENS BETH METAB OLIC PANEL calcium 9.7 mg/dL 8.4-10 .2 Not Available [facility] (Lab) [address] [place], [address], 09/26/2023 14:21:53 09/26/19 24 09/26/2023 COMPR EHENS BETH METAB OLIC PANEL total protein 7.7 g/dL 6.3-8. 2 Not Available [facility] (Lab) [address] [place], [address], 09/26/2023 14:21:53 09/26/19 24 09/26/2023 COMPR EHENS BETH METAB OLIC PANEL albumin 4.6 g/dL 3.0-4. 4 high Not Available [facility] (Lab) [address] [place], [address], 09/26/2023 14:21:53 09/26/19 24 09/26/2023 COMPR EHENS BETH METAB OLIC PANEL globulin 3.1 g/dL 2.6-4. 2 Not Available [facility] (Lab) [address] [place], [address], 09/26/2023 14:21:53 09/26/19 24 09/26/2023 COMPR EHENS BETH METAB OLIC PANEL A/G ratio 1.5 ratio 1.0-2. 0 Not Available [facility] (Lab) [address] [place], [address], 09/26/2023 14:21:53 09/26/19 24 09/26/2023 MICRO ALBUM IN RANDO M URINE microalbumin , urine 370.0 mg/L 0.0-16 .6 high Not Available [facility] (Lab) [address] [place], [address], 09/26/2023 16:11:11 03/26/20 24 03/26/2024 CBC/C OMPLE TE BLD COUNT W/DIF F white blood cells 7.8 x10'3 /uL 4.2-10 .8 Not Available [facility] (Lab) [address] [place], [address], 03/26/2024 13:07:07 03/26/20 24 03/26/2024 CBC/C OMPLE TE BLD COUNT W/DIF F red blood cells 4.68 x10'6 /uL 4.10-5 .80 Not Available [facility] (Lab) [address] [place], [address], 03/26/2024 13:07:07 03/26/20 24 03/26/2024 CBC/C OMPLE TE BLD COUNT W/DIF F hemoglobin 13.9 g/dL 13.2-1 7.0 Not Available [facility] (Lab) [address] [place], [address], 03/26/2024 13:07:07 03/26/2003/26/2024 CBC/C OMPLE TE BLD COUNT W/DIF F hematocrit 45.7 % 39.3-5 0.0 Not Available [facility] (Lab) [address] [place], [address], 03/26/2024 13:07:07 03/26/20 24 03/26/2024 CBC/C OMPLE TE BLD COUNT W/DIF F mean red cell volume 97.6 fL 80.0-9 7.0 high Not Available [facility] (Lab) [address] [place], [address], 03/26/2024 13:07:07 03/26/20 24 03/26/2024 CBC/C OMPLE TE BLD COUNT W/DIF F mean red cell hemoglobin 29.7 pg 27.0-3 3.0 Not Available [facility] (Lab) [address] [place], [address], 03/26/2024 13:07:07 03/26/20 24 03/26/2024 CBC/C OMPLE TE BLD COUNT W/DIF F mean RBC HGB concentratio n 30.4 g/dL 31.0-3 6.0 low Not Available [facility] (Lab) [address] [place], [address], 03/26/2024 13:07:07 03/26/20 24 03/26/2024 CBC/C OMPLE TE BLD COUNT W/DIF F red cell distribution width 15.2 % 11.8-1 5.5 Not Available [facility] (Lab) [address] [place], [address], 03/26/2024 13:07:07 03/26/20 24 03/26/2024 CBC/C OMPLE TE BLD COUNT W/DIF F platelets 287 x10'3 /uL 150-40 0 Not Available [facility] (Lab) [address] [place], [address], 03/26/2024 13:07:07 03/26/20 24 03/26/2024 CBC/C OMPLE TE BLD COUNT W/DIF F mean platelet volume 11.3 fL 9.0-12 .4 Not Available [facility] (Lab) [address] [place], [address], 03/26/2024 13:07:07 03/26/20 24 03/26/2024 CBC/C OMPLE TE BLD COUNT W/DIF F neutrophils 70.5 % 39.0-7 2.0 Not Available [facility] (Lab) [address] [place], [address], 03/26/2024 13:07:07 03/26/20 24 03/26/2024 CBC/C OMPLE TE BLD COUNT W/DIF F lymphocytes 15.2 % 16.0-4 7.0 low Not Available [facility] (Lab) [address] [place], [address], 03/26/2024 13:07:07 03/26/20 24 03/26/2024 CBC/C OMPLE TE BLD COUNT W/DIF F monocytes 11.7 % 5.0-12 .0 Not Available [facility] (Lab) [address] [place], [address], 03/26/2024 13:07:07 03/26/20 24 03/26/2024 CBC/C OMPLE TE BLD COUNT W/DIF F eosinophils 1.5 % 1.0-7. 0 Not Available [facility] (Lab) [address] [place], [address], 03/26/2024 13:07:07 03/26/20 24 03/26/2024 CBC/C OMPLE TE BLD COUNT W/DIF F basophils 0.5 % 0.0-2. 0 Not Available [facility] (Lab) [address] [place], [address], 03/26/2024 13:07:07 03/26/20 24 03/26/2024 CBC/C OMPLE TE BLD COUNT W/DIF F immature granulocytes 0.6 % 0.00-0 .50 high Not Available [facility] (Lab) [address] [place], [address], 03/26/2024 13:07:07 03/26/20 24 03/26/2024 CBC/C OMPLE TE BLD COUNT W/DIF F neutrophils, absolute count 5.45 x10'3 /uL 1.5-8. 0 Not Available [facility] (Lab) [address] [place], [address], 03/26/2024 13:07:07 03/26/20 24 03/26/2024 CBC/C OMPLE TE BLD COUNT W/DIF F lymphocytes, absolute count 1.18 x10'3 /uL 1.07-3 .43 Not Available [facility] (Lab) [address] [place], [address], 03/26/2024 13:07:07 03/26/20 24 03/26/2024 CBC/C OMPLE TE BLD COUNT W/DIF F monocytes, absolute count 0.91 x10'3 /uL 0.29-0 .99 Not Available [facility] (Lab) [address] [place], [address], 03/26/2024 13:07:07 03/26/20 24 03/26/2024 CBC/C OMPLE TE BLD COUNT W/DIF F eosinophils, absolute count 0.12 x10'3 /uL 0.02-0 .53 Not Available [facility] (Lab) [address] [place], [address], 03/26/2024 13:07:07 03/26/20 24 03/26/2024 CBC/C OMPLE TE BLD COUNT W/DIF F basophils, absolute count 0.04 x10'3 /uL 0.01-0 .08 Not Available [facility] (Lab) [address] [place], [address], 03/26/2024 13:07:07 03/26/20 24 03/26/2024 CBC/C OMPLE TE BLD COUNT W/DIF F immature granulocytes ,absolute 0.05 x10'3 /uL 0.00-0 .05 Not Available [facility] (Lab) [address] [place], [address], 03/26/2024 13:07:07 03/26/20 24 03/26/2024 CBC/C OMPLE TE BLD COUNT W/DIF F nucleated red blood cells 0.0 % -0 Not Available [facility] (Lab) [address] [place], [address], 03/26/2024 13:07:07 03/26/20 24 03/26/2024 CBC/C OMPLE TE BLD COUNT W/DIF F NRBC# 0.00 x10'3 /uL Not Available [facility] (Lab) [address] [place], [address], 03/26/2024 13:07:07 03/26/20 24 03/26/2024 LIPID PANEL cholesterol 142 mg/dL 140-19 9 NIH PITA NSUS RECOM MENDA TION FOR BART STERO L: ADULT CHILD LOW RISK: <200 <170 BORDE RLINE : <200- 239 ----- HIGH RISK: >240 >200 Not Available [facility] (Lab) [address] [place], [address], 03/26/2024 13:59:08 03/26/20 24 03/26/2024 LIPID PANEL triglyceride s 116 mg/dL 0-150 NIH PITA NSUS REPOR T RECOM MENDA TION FOR TRIGL YCERI REY: ADULT CHILD LOW RISK: <150 ----- BODER LINE: 150-1 99 ----- HIGH RISK: >200 ----- Not Available [facility] (Lab) [address] [place], [address], 03/26/2024 13:59:08 03/26/20 24 03/26/2024 LIPID PANEL HDL cholesterol 38 mg/dL 40- low Not Available [facility] (Lab) [address] [place], [address], 03/26/2024 13:59:08 03/26/20 24 03/26/2024 LIPID PANEL [...] WILL NOT BE REPOR SANTI. Not Available [facility] (Lab) [address] [place], [address], 03/26/2024 13:59:08 03/26/20 24 03/26/2024 COMPR EHENS BETH METAB OLIC PANEL sodium 139 mmol/ L 137-14 5 Not Available [facility] (Lab) [address] [place], [address], 03/26/2024 13:59:14 03/26/20 03/26/2024 COMPR EHENS BETH METAB OLIC PANEL potassium 4.6 mmol/ L 3.5-5. 1 Not Available [facility] (Lab) [address] [place], [address], 03/26/2024 13:59:14 03/26/20 24 03/26/2024 COMPR EHENS BETH METAB OLIC PANEL chloride 104 mmol/ L 98-107 Not Available [facility] (Lab) [address] [place], [address], 03/26/2024 13:59:14 03/26/20 24 03/26/2024 COMPR EHENS BETH METAB OLIC PANEL carbon dioxide 29 mmol/ L 22-30 Not Available [facility] (Lab) [address] [place], [address], 03/26/2024 13:59:14 03/26/20 24 03/26/2024 COMPR EHENS BETH METAB OLIC PANEL anion gap 10.6 mmol/ L 14-22 low Not Available [facility] (Lab) [address] [place], [address], 03/26/2024 13:59:14 03/26/20 24 03/26/2024 COMPR EHENS BETH METAB OLIC PANEL glucose 128 mg/dL 70-99 high Not Available [facility] (Lab) [address] [place], [address], 03/26/2024 13:59:14 03/26/20 24 03/26/2024 COMPR EHENS BETH METAB OLIC PANEL BUN 16 mg/dL 8-19 Not Available [facility] (Lab) [address] [place], [address], 03/26/2024 13:59:14 03/26/20 24 03/26/2024 COMPR EHENS BETH METAB OLIC PANEL creatinine 0.96 mg/dL 0.66-1 .25 Not Available [facility] (Lab) [address] [place], [address], 03/26/2024 13:59:14 03/26/20 24 03/26/2024 COMPR EHENS BETH METAB OLIC PANEL GFR >60 Refer ence Range : [place] ge GFR Healt hy Adult : >60 [...] calcu lator is avail able on the [facility] websi te: [email or web address] culat or Not Available [facility] (Lab) [address] [place], [address], 03/26/2024 13:59:14 03/26/20 24 03/26/2024 COMPR EHENS BETH METAB OLIC PANEL alkaline phosphatase 78 U/L 38-126 Not Available [facility] (Lab) [address] [place], [address], 03/26/2024 13:59:14 03/26/20 24 03/26/2024 COMPR EHENS BETH METAB OLIC PANEL alanine aminotransfe rase 21 U/L 0-50 Not Available [facility] (Lab) [address] [place], [address], 03/26/2024 13:59:14 03/26/20 24 03/26/2024 COMPR EHENS BETH METAB OLIC PANEL aspartate aminotransfe rase 32 U/L 15-46 Not Available [facility] (Lab) [address] [place], [address], 03/26/2024 13:59:14 03/26/20 24 03/26/2024 COMPR EHENS BETH METAB OLIC PANEL bilirubin, total 0.70 mg/dL 0.20-1 .30 Not Available [facility] (Lab) [address] [place], [address], 03/26/2024 13:59:14 03/26/20 24 03/26/2024 COMPR EHENS BETH METAB OLIC PANEL calcium 8.9 mg/dL 8.4-10 .2 Not Available [facility] (Lab) [address] [place], [address], 03/26/2024 13:59:14 03/26/20 24 03/26/2024 COMPR EHENS BETH METAB OLIC PANEL total protein 7.1 g/dL 6.3-8. 2 Not Available [facility] (Lab) [address] [place], [address], 03/26/2024 13:59:14 03/26/20 24 03/26/2024 COMPR EHENS BETH METAB OLIC PANEL albumin 4.2 g/dL 3.0-4. 4 Not Available [facility] (Lab) [address] [place], [address], 03/26/2024 13:59:14 03/26/20 24 03/26/2024 COMPR EHENS BETH METAB OLIC PANEL globulin 2.9 g/dL 2.6-4. 2 Not Available [facility] (Lab) [address] [place], [address], 03/26/2024 13:59:14 03/26/20 24 03/26/2024 COMPR EHENS BETH METAB OLIC PANEL A/G ratio 1.4 ratio 1.0-2. 0 Not Available [facility] (Lab) [address] [place], [address], 03/26/2024 13:59:14 03/26/20 24 03/26/2024 HEMOG LOBIN A1C HA1C 7.5 % 4.0-6. 0 high Diabe sonal Scree herbert Crite yuly: <5.7% Consi stent with absen ce of diabe sonal 5.7-6 .4% Consi stent with incre ased risk for diabe sonal (pred iabet es) >OR=6 .5% Consi stent with diabe sonal REFER ENCE: Diabe sonal Care 2016, 39(Oconnor ppl.1 ):s13 -s22 Not Available [facility] (Lab) [address] [place], [address], 03/26/2024 14:16:25 03/26/20 24 03/26/2024 MICRO ALBUM IN RANDO M URINE microalbumin , urine 150.6 mg/L 0.0-16 .6 high Not Available [facility] (Lab) [address] [place], [address], 03/26/2024 16:35:06 09/24/19 25 09/25/2024 ALBUM IN, RANDO M URINE W/CRE ATINI NE creatinine, random urine 55 mg/dL 20-320 normal Not Available [facility] [address] [place], [address], 09/25/2024 04:50:00 09/24/19 25 09/25/2024 ALBUM IN, RANDO M URINE W/CRE ATINI NE albumin, urine 2.5 mg/dL see note: normal Refer ence Range : Refer ence Range Not estab lishe d Not Available [address], [address], 09/25/2024 04:50:00 09/24/1909/25/2024 ALBUM IN, RANDO M [...] a diagn ostic categ ory. Not Available [address], [address], 09/25/2024 04:50:00 09/24/1909/25/2024 ALBUM IN, VALERIANO M URINE W/CRE ATINI NE copy(ies) sent to: LIDNA Sahni [address] [place] [address] Not Available [address], [address], 09/25/2024 04:50:00 09/24/19 25 09/25/2024 CBC (INCL UDES DIFF/ PLT) white blood cell count 8.9 thous and/u L 3.8-10 .8 normal Not Available [address], [address], 09/25/2024 04:50:01 09/24/19 25 09/25/2024 CBC (INCL UDES DIFF/ PLT) red blood cell count 4.73 edwin on/uL 4.20-5 .80 normal Not Available [address] [place], [address], 09/25/2024 04:50:01 09/24/1909/25/2024 CBC (INCL UDES DIFF/ PLT) hemoglobin 14.6 g/dL 13.2-1 7.1 normal Not Available [facility] [address], [address], 09/25/2024 04:50:01 09/24/1909/25/2024 CBC (INCL UDES DIFF/ PLT) hematocrit 45.3 % 38.5-5 0.0 normal Not Available [facility] [address], [address], 09/25/2024 04:50:01 09/24/1909/25/2024 CBC (INCL UDES DIFF/ PLT) MCV 95.8 fL 80.0-1 00.0 normal Not Available [address], [address], 09/25/2024 04:50:01 09/24/1909/25/2024 CBC (INCL UDES DIFF/ PLT) MCH 30.9 pg 27.0-3 3.0 normal Not Available [address], [address], 09/25/2024 04:50:01 09/24/1909/25/2024 CBC (INCL UDES DIFF/ PLT) MCHC 32.2 g/dL 32.0-3 6.0 normal For adult s, a sligh t decre ase in the calcu lated MCHC value (in the range of 30 to 32 g/dL) is most likel y not clini sola alvarenga t; azra er, it shoul d be inter prete d with cauti on in [facility] n with other red cell ifeoma eters and the patie nt's clini raman condi tion. Not Available [facility] [address], [address], 09/25/2024 04:50:01 09/24/1909/25/2024 CBC (INCL UDES DIFF/ PLT) RDW 12.7 % 11.0-1 5.0 normal Not Available [address], [address], 09/25/2024 04:50:01 09/24/1909/25/2024 CBC (INCL UDES DIFF/ PLT) platelet count 271 thous and/u L 140-40 0 normal Not Available [address], [address], 09/25/2024 04:50:01 09/24/1909/25/2024 CBC (INCL UDES DIFF/ PLT) MPV 11.4 fL 7.5-12 .5 normal Not Available [address], [address], 09/25/2024 04:50:01 09/24/1909/25/2024 CBC (INCL UDES DIFF/ PLT) absolute neutrophils 6533 cells /uL 1500-7 800 normal Not Available [address], [address], 09/25/2024 04:50:01 09/24/1909/25/2024 CBC (INCL UDES DIFF/ PLT) absolute lymphocytes 1353 cells /uL 850-39 00 normal Not Available [address], [address], 09/25/2024 04:50:01 09/24/1909/25/2024 CBC (INCL UDES DIFF/ PLT) absolute monocytes 792 cells /uL 200-95 0 normal Not Available [address], [address], 09/25/2024 04:50:01 09/24/19 25 09/25/2024 CBC (INCL UDES DIFF/ PLT) absolute eosinophils 160 cells /uL 15-500 normal Not Available [address], [address], 09/25/2024 04:50:01 09/24/19 25 09/25/2024 CBC (INCL UDES DIFF/ PLT) absolute basophils 62 cells /uL 0-200 normal Not Available [address], [address], 09/25/2024 04:50:01 09/24/19 25 09/25/2024 CBC (INCL UDES DIFF/ PLT) neutrophils 73.4 % normal Not Available [address], [address], 09/25/2024 04:50:01 09/24/1909/25/2024 CBC (INCL UDES DIFF/ PLT) lymphocytes 15.2 % normal Not Available [address], [address], 09/25/2024 04:50:01 09/24/1909/25/2024 CBC (INCL UDES DIFF/ PLT) monocytes 8.9 % normal Not Available [address], [address], 09/25/2024 04:50:01 09/24/19 25 09/25/2024 CBC (INCL UDES DIFF/ PLT) eosinophils 1.8 % normal Not Available [address], [address], 09/25/2024 04:50:01 09/24/19 25 09/25/2024 CBC (INCL UDES DIFF/ PLT) basophils 0.7 % normal Not Available [address], [address], 09/25/2024 04:50:01 09/24/19 25 09/25/2024 CBC (INCL UDES DIFF/ PLT) copy(ies) sent to: LINDA Sahni [address] [place] [address] Not Available [facility] [address] [address] [place], [address], 09/25/2024 04:50:01 09/24/1909/25/2024 TSH W/REF VERONICA TO FT4 TSH w/reflex to FT4 1.36 mIU/L 0.40-4 .50 normal Not Available [facility] [address] [address] [place], [address], 09/25/2024 04:50:03 09/24/1909/25/2024 TSH W/REF VERONICA TO FT4 copy(ies) sent to: LINDA Sahni [address] [place] [address] Not Available [facility] [address] [address] [place], [address], 09/25/2024 04:50:03 09/24/1909/25/2024 HEMOG LOBIN A1C hemoglobin [...] diabe sonal for child new. Not Available [facility] [address] [address] [place], [address], 09/25/2024 04:50:04 09/24/1909/25/2024 HEMOG LOBIN A1C copy(ies) sent to: LINDA RODRIGUEZ C [address] [place] [address] Not Available [facility] [address] [place], [address], 09/25/2024 04:50:04 09/30/1909/29/2024 COLOG UARD cologuard result reportable NEGATI VE negati ve normal NEGAT BETH TEST RESUL T. A negat beth Colog uard resul t indic ates a low likel ihood that a color ectal cance r (CRC) or advan yolanda adeno ma (linda omato us polyp s with more advan yolanda pre-m align ant featu res) is prese nt. The chan e that a perso n with a [...] of 10,00 0 indiv idual s at [place] risk for color ectal cance r [...] asymp tomat ic indiv idual s at [place] risk for color ectal cance r. Follo wing a negat beth Colog uard resul t, the Ameri can Cance r Socie ty and U.S. Multi -Soci ety Task Force scree herbert guide lines recom mend a Colog uard re-sc reeni ng inter larissa of 3 years . Refer ences : Ameri can Cance r Socie ty Guide line for Color ectal Cance r Scree herbert: https ://ww w.can cer.o rg/ca ncer/ colon -rect al-ca ncer/ detec tion- diagn osis- stagi ng/ac s-rec ommen datio ns.ht ml.; Dougie DK, Earle gar CR, Bandar espinoza JK, Color ectal Cance r Scree herbert: Recom menda tions for Physi cians and Patie nts from the U.S. Multi -Soci ety Task Force on Color ectal Cance r Scree herbert , Kim Montes oente rolog y 2017; 112:1 016-1 030. TEST DESCR IPTIO N: [place] site algor ithmi c geo sis of stool DNA-b iochris bonilla with hemog lobin immun oassa y. [...] years or older , who are at [facility] for color ectal cance r (CRC) . Colog uard has been appro xavi for use by the U.S. FDA. The perfo rmanc e of Colog uard was estab lishe d in a cross secti onal study of [facility] adult s aged 50-84 . Colog [...] study of 0 indiv idual s at avera ge risk for color ectal cance r [...] wing locat ion: www.e xactl abs.c om/re sults . Addit ional descr iptio n of the Colog uard test proce ss, warni ngs and preca ution s can be found at www.c ologu edgar.c om. Not Available [facility] (Cologuard Orders Only) [address], [place], [address], 10/03/2024 08:22:18 01/10/2001/10/2024 LDCT, chest , for lung cance r scree herbert No observ ation record ed. [facility] ([facility] Sched[facility]) [address] [place], [address], 02/06/2024 10:18:04 01/11/20 24 01/10/2024 compl ete PFT w/ post [facility] hodil ator hans metry * No observ ation record ed. [facility] ([facility] Call Sched[facility]) [address] [place], [address], 01/11/2024 09:51:09 02/10/20 24 02/10/2024 , [facility] ardio gram No observ ation record ed. [address] [facility] [address] [facility] [address], [place], [address], 02/11/2024 09:29:30 12/19/19 25 12/18/2024 PFT, compl ete No observ ation record ed. [place] [id number] [facility] [address], [place], [address], 12/18/2024 17:43:47 01/03/20 25 12/18/2024 compl ete PFT w/ post [facility] hodil ator hans metry * No observ ation record ed. [facility] (Pulmonary) [address] [place] [address] [address], [place], [address], 01/02/2025 17:15:15 Result Notes None recorded. Problems Name Problem SNOMED Code Status Onset Date Resolution Date Notes Provider Name and Address Organization Details Recorded Time Benign essential hypertensi on 5369134 Completed Not Available [facility] 3 05:55:39 Idiopathic peripheral neuropathy 55670287 Active Not Available [facility] 3 05:37:27 Prostate specific antigen above reference range 459933843 Active Not Available [facility] 3 05:37:27 Peripheral vascular disease 441675654 Active Not Available [facility] 3 05:37:27 Diastolic heart failure 158065345 Active 2021 Not Available [facility] 3 05:37:27 Type 2 diabetes mellitus 52401155 Active Not Available [facility] 3 05:37:27 Atrial fibrillati on 09916506 Active 2021 Not Available [facility] 3 05:37:27 Hyperlipid emia 68314203 Active Not Available [facility] 3 05:37:27 Essential hypertensi on 17267654 Active 2016 Not Available [facility] 3 05:37:27 Carotid artery stenosis 63426812 Active Not Available [facility] 3 05:37:27 Severe chronic obstructiv e pulmonary disease 193206659 Active 2022 Not Available [facility] 3 05:37:27 Ex-smoker 0167089 Active 2022 Not Available [facility] 3 05:37:27 Disorder of prostate 97794954 Active 2022 Bryon Cordoba MD [address] [facility], [address], [place], [address] , [employer] 3 11:03:43 Chronic obstructiv e pulmonary disease 23859278 Active 2024 Bryon Cordoba MD [address], [address], [place], [address] , [employer] 5 10:48:56 Notes:Medical History: Right cataract Rhinitis [...] PVD Procedure History: Right facial trauma surgery 1970 Right leg fracture surgery 1975 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 Procedures Surgical History Date Name Laterality Status Provider Name and Address Organization Details Recorded Time insertion of pleural tube drain completed Brenda Quiroz MA [employer] 10/18/2023 10:00:58 Imaging Results None recorded. Procedure Notes None recorded. Medical Equipment None Reported. Allergies Allergen ID Allergen Name Allergen Category Reaction Reaction Severity Criticality Documentation Date Start Date Code Code System Note Provider Name and Address Organization Details Recorded Time 72322 Product containin g penicilli n (product) medicatio n Not available Not available Not available 09/29/2022 12786 8001 SNOMED Not Available [facility] 3 06:00:30 63190 lisinopri l medicatio n Not available Not available Not available 10/18/20[address] [facility] 4 09:56:37 Medications Name Sig Start Date [...] Not Available Not Available No t Available hydrocodone 10 mg-acetamin ophen 325 mg tablet [...] Not Available Not Available Not Available magnesium oxide 400 mg (241.3 mg magnesium) tablet TAKE 1 TABLET BY MOUTH TWICE DAILY active Not Available Not Available No t Available OneTouch Ultra Test strips USE TO [...] TABLET BY MOUTH EVERY NIGHT AT BEDTIME active Not Available Not Available No t Available Levaquin 500 mg tablet Take 1 tablet [...] lable Vitals Date Recorded Body height Body mass index (BMI) Body weight Heart rate Oxygen saturation Oxygen saturation in Arterial blood by Pulse oximetry Systolic blood pressure Diastolic blood pressure Provider Name and Address Organization Details Last Updated DateTime 5 180.34 cm 25.8 kg/m2 42186.5 9 g 67 /min 90 % 90 % 120 mm[Hg] 64 mm[Hg] Sisi Maria [place] [employer] [facility] [employer] 5 10:42:31 Date Recorded Body height Body weight Heart rate Body temperature Oxygen saturation Oxygen saturation in Arterial blood by Pulse oximetry Inhaled oxygen flow rate Systolic blood pressure Diastolic blood pressure Provider Name and Address Organization Details Last Updated DateTime 4 180.34 cm 66711.1 8 g 53 /min 97.2 [degF] 91 % 91 % 2 L/min 120 mm[Hg] 80 mm[Hg] ABRAHAM Redman [place] [employer] [facility] [employer] 4 10:38:13 Date Recorded Oxygen saturation Oxygen saturation in Arterial blood by Pulse oximetry Heart rate Respiratory rate Provider Name and Address Organization Details Last Updated DateTime 10/18/2023 85 % 85 % 66 /min 15 /min Diaz Simental MD [address] [place] [address], [facility] [address], [place], [address], [place] [employer] [facility] [employer] 4 10:06:51 Date Recorded Body height Body mass index (BMI) Body weight Body temperature Heart rate Systolic blood pressure Diastolic blood pressure Provider Name and Address Organization Details Last Updated DateTime 4 180.34 cm 25.9 kg/m2 86227.1 8 g 97.4 [degF] 66 /min 122 mm[Hg] 80 mm[Hg] Brenda Quiroz MA [facility] [employer] [facility] 4 09:56:02 Date Recorded Heart rate Respiratory rate Oxygen saturation Oxygen saturation in Arterial blood by Pulse oximetry Inhaled oxygen flow rate Heart rate Provider Name and Address Organization Details Last Updated DateTime 4 59 /min 14 /min 92 % 92 % 2 L/min 59 /min Diaz Simental MD [address], [address], [place], [address], [facility] [employer] 4 10:17:51 Date Recorded Body mass index (BMI) Body weight Body temperature Oxygen saturation Oxygen saturation in Arterial blood by Pulse oximetry Systolic blood pressure Diastolic blood pressure Provider Name and Address Organization Details Last Updated DateTime 4 26.2 kg/m2 19858.3 7 g 97.8 [degF] 86 % 86 % 118 mm[Hg] 76 mm[Hg] Tena Sr MA [facility] [employer] 4 09:42:25 Date Recorded Body height Provider Name an d Address Organization Details Last Updated DateTime 01/11/2024 180.34 cm Evelyn Page CMA [facility] [employer] 01/11/2024 09:30:44 Date Recorded Body height Body mass index (BMI) Body weight Heart rate Body temperature Oxygen saturation Oxygen saturation in Arterial blood by Pulse oximetry Inhaled oxygen flow rate Systolic blood pressure Diastolic blood pressure Provider Name and Address Organization Details Last Updated DateTime 4 180.34 cm 26.9 kg/m2 91575.3 3 g 60 /min 97.6 [degF] 93 % 93 % 2 L/min 128 mm[Hg] 80 mm[Hg] ABRAHAM Redman [facility] [employer] 4 10:20:39 Social History Question Answer Notes LastModified by Organizat ion Details LastModified Time Tobacco Smoking Status Former Smoker Tena Sr MA null, [employer] [facility] [employer] 11/10/2022 14:33:56 What Is Your Level Of [...] available 11/10/2022 When Did You Quit Smoking? 1-5yearssinlizabethmisti aguila Information not available 11/10/2022 Do You [...] anxious, or unable to sleep at night)? [id number] Information not available 10/18/2023 Family History Relationship Description Onset Age of this Age Resolved Age Notes LastModified by Organization Details LastModified Time Father Chronic obstructive pulmonary disease [email or web address] Not available 2022 15:15:13 Brother Chronic obstructive pulmonary disease [email or web address] Not available 2022 15:15:20 Brother Coronary artery bypass graft [email or web address] Not available 07/2023 15:41:49 Notes:Abstracted Information 08-28-2018: [...] DISEASE/DISORDER N HISTORY OF DRUG ABUSE N COPD N RADIATION / CHEMOTHERAPY N Other # 2 N BLOOD DISEASES N EAR OR HEARING PROBLEMS N MUMPS N SHINGLES N DEPRESSION (INCLUDING POST ) N BOWEL PROBLEMS N STROKE/TIA N ULCERS N BENIGN PROSTATIC [...] N CHRONIC PAIN SYNDROME N HYPOTHYROIDISM N CAROTID BLOCKAGE N CONSTIPATION N BACK / NECK PROBLEMS N HAVE YOU BEEN HOSPITALIZED OR SEEN IN [facility] IN THE PAST YEAR ? N ATHEROSCLEROSIS [...] Immunizations Vaccine Type Date Status Note Provider Nam e and Address Organization Details Recorded Time COVID-19 Non-US Vaccine, Product Unknown 1 completed Not Available [facility] 01/03/2023 05:37:27 COVID-19 Non-US Vaccine, Product Unknown 1 completed Not Available [facility] 01/03/2023 05:37:27 SARS-COV-2 (COVID-19) vaccine, UNSPECIFIED 1 completed Not Available [facility] 01/03/2023 05:37:27 Influenza, split virus, quadrivalent, preservative 1 completed Not Available [facility] 01/03/2023 05:37:27 pneumococcal polysaccharide PPV23 1 completed Not Available [facility] 01/03/2023 05:37:27 Pneumococcal conjugate PCV 13 0 completed Not Available [facility] 01/03/2023 05:37:27 Past Encounters Encounter ID Performer Location Encounter Start Date Encounter Closed Date Diagnosis/Indication Diagnosis SNOMED-CT Code Diagnosis ICD10 Code Diagnosis Note [id number] Bryon Cordoba MD [facility] [address] [address] 03/23/2021 00:00:00 03/23/2021 10:34:37 [id number] Bryon Cordoba MD [facility] [address] [address] 09/21/2021 00:00:00 09/21/2021 10:43:40 [id number] Bryon Cordoba MD [facility] [address] [address] 12/17/2021 00:00:00 12/17/2021 14:49:26 [id number] Bryon Cordoba MD [facility] [address] [address] 03/22/2022 00:00:00 03/22/2022 10:36:52 [id number] Bryon Cordoba MD [facility] [address] [address] 09/20/2022 00:00:00 09/20/2022 11:10:25 [id number] Diaz Simental MD [facility] [address] [place] [address] [address] [place] [address] 11/10/2022 14:14:00 11/10/2022 15:36:41 Dyspnea on exertion 88823473 R06.09 R05.9 T78.40XA D89.9 Severe chr onic obstructive pulmonary disease 713267162 J44.9 Ex-smoker 6021050 Z87.89 1 F17.218 F17.219 [id number] Diaz Simental MD [address] [address] 12/22/2022 10:53:50 12/23/2022 08:33:08 Severe chronic obstructive pulmonary disease 867287540 J44.9 Ex-smoker 9360584 Z87.89 1 F17.218 F17.219 [id number] Bryon Cordoba MD [facility] Internal [place] [address] [place] [id number] 03/21/2023 10:19:31 03/21/2023 11:05:59 Essential hypertension 16569643 I10 Atrial fibrillation 4943 6004 I48.91 Hyperlipidemia 92038948 E78.5 Peripheral vascular disease 294166893 I73.9 Type 2 eugenia betes mellitus 85052844 E11.9 Severe chr onic obstructive pulmonary disease 700894644 J44.9 Disorder of prostate 302 [address] N42.9 [id number] Bryon Cordoba MD [facility] Internal [place] [address] [place] [address] 09/26/2023 10:30:12 09/26/2023 11:10:38 Carotid artery stenosis 30278124 I65.29 Atrial fibrillation 4943 6004 I48.91 Essential hypertension 73406884 I10 Type 2 eugenia betes mellitus 12277103 E11.9 Peripheral vascular disease 807558612 I73.9 Hyperlipidemia 05260326 E78.5 Severe chr onic obstructive pulmonary disease 557565798 J44.9 [id number] Diaz Simental MD [facility] [address] 10/18/2023 09:35:57 10/19/2023 09:14:20 Severe chronic obstructive pulmonary disease 508734838 J44.9 Ex-smoker 7208676 Z87.89 1 F17.218 F17.000 [id number] Diaz Simental MD [facility] [place] [address] [place] [address] 01/11/2024 09:02:24 01/12/2024 09:02:32 Severe chronic obstructive pulmonary disease 187029064 J44.9 Ex-smoker 5145824 Z87.89 1 F17.218 F17.130 [id number] Bryon Cordoba MD [facility] [address] [id number] 03/26/2024 10:13:38 03/26/2024 10:35:06 Essential hypertension 07679727 I10 Hyperlipidemia 73408531 E78.5 Type 2 eugenia betes mellitus 79934816 E11.9 Atrial fibrillation 4943 6004 I48.91 Severe chr onic obstructive pulmonary disease 424715075 J44.9 [id number] Bryon Cordoba MD [facility] Internal Med [facility] [address] [address] 09/24/2024 10:40:46 09/24/2024 11:03:02 Essential hypertension 08374571 I10 Atrial fibrillation 4943 6004 I48.91 Type 2 eugenia betes mellitus 69883772 E11.9 Peripheral vascular disease 869011512 I73.9 Hyperlipidemia 04451105 E78.5 Chronic ob structive pulmonary disease 91045331 J44.9 Health Concerns Section Related Observation LastModified by Organization Detai ls LastModified Time None Recorded Concern Status LastModified by Organization Details LastModified Time None Recorded Advance Directives Directive None Recorded Payers Encounter Date Sequence Insurance Name Policy Number Policy Benitez Covered Member ID Benitez Member ID Guarantor Name 09/26/2023 1 [facility] (MEDICARE REPLACEMENT/A DVANTAGE - HMO) [id number] Stevenson Mckeon [id number] Stevenson Mckeon 10/18/2023 1 [facility] (MEDICARE REPLACEMENT/A DVANTAGE - HMO) [id number] Stevenson Mckeon [id number] Stevenson Mckeon 01/11/2024 1 [facility] (MEDICARE REPLACEMENT/A DVANTAGE - HMO) [id number] Stevenson Mckeon [id number] Stevenson Mckeon 03/26/2024 1 [facility] (MEDICARE REPLACEMENT/A DVANTAGE - HMO) [id number] Stevenson Mckeon [id number] Stevenson Mann Linda 09/24/2024 1 [facility] (MEDICARE REPLACEMENT/A DVANTAGE - HMO) [id number] Stevenson Sahni Linda [id number] Stevenson Mann Linda Notes Date Note Type Note Provider Name [...] Systemic Symptoms:none Medication Reconciliation: from medication list. [id number]/28/2022: Echocardiogram demonstrated an estimated ejection fraction of [...] Metoprolol Tartrate. Rate control: controlled ventricular response [id number] Criteria: hypertension, Age 65-74 and and considered [...] Reactions ReviewedPenicillin RashAce Inhibitors Angioedema Vaccination and Iyybhavazqtp1166-65 Covid Booster Kkjsszp8179-86 Wbukjeelx2379-42 Tsqxrqxib4066-65 Covid Qxlhwxn5460-36 Prevnar 13 Gc Surgical Uuxmbcl1019-22 Left Great Toe Hkeanvjvaw4552-31 Right Femoral Popliteal Xomos7551-47 Superficial Femoral Artery Bilateral Cnnasxitxf0408-77 Left Carotid Dxthqiyilulvvl3256-91 Rt. Neck Surgery Preventative Ixyrqap4804/05/2023 ALBUMIN 4.3 G/DL 04/05/2023 PSA 3.71 NG/ML N004/05/2023 MICRO ALBUMIN >1140.0 [...] 100 0-130 MG/DL Bryon Cordoba MD [address] [facility], [address], [address], [place] - [place] [employer] 09/26/2023 11:06:33 10/18/2023 text/html Primary care/Ref erring [...] after himselfAlleviating factors: rest Modified [employer] [place] ([facility]) Dyspnea Scale - Grade 1Grade 0 [...] noEdema: no Environmental exposures:Nicotine smoke: 1.5 ppd 3526-3248 =78 pack yearsPaint: noDye: noDust mites: yesMold: [...] slight chance of dozing. Diaz Simental MD [address] [place] [address], [address], [facility] [employer] 10/18/2023 10:23:27 01/11/2024 text/html Primary care/Ref erring [...] after himselfAlleviating factors: rest Modified [employer] [place] ([facility]) Dyspnea Scale - Grade 1Grade 0 [...] noEdema: no Environmental exposures:Nicotine smoke: 1.5 ppd 5705-6663 =78 pack yearsPaint: noDye: noDust mites: yesMold: [...] slight chance of dozing. Diaz Simental MD [address] [facility], [address], [place], [address], [place] - [facility] 01/11/2024 10:18:04 03/26/2024 text/html Patient Name: [...] Systemic Symptoms:none Medication Reconciliation: from medication list. Ybqatyghohp68/09/2023: Pulmonary function testing shows severe obstructive lung [...] Metoprolol Tartrate. Rate control: controlled ventricular response [id number] Criteria: hypertension, Age 65-74 and and considered [...] Reactions ReviewedPenicillin RashAce Inhibitors Angioedema Vaccination and Kckndrnzmhfw7546-88 Covid Booster Vsjoqjb4316-97 Mfuvbacmn7543-84 Dmurfkyqh6691-86 Covid Uybungk8171-72 Prevnar 13 Gc Surgical Jbxvrca7815-48 Left Great Toe Vtotavzlla0687-91 Right Femoral Popliteal Zbbbp6395-33 Superficial Femoral Artery Bilateral Qmzahwxvpf6661-29 Left Carotid Ermliczxukmrmn0418-55 Rt. Neck Surgery Preventative Testing( ) 09/26/2023 [...] 0.976 0.465-4.680 UIU/ML Bryon Cordoba MD [address] [facility], [facility] [address], [place], [address], [place] [employer] 03/26/2024 10:32:37 09/24/2024 text/html Patient Name: Darius [...] Systemic Symptoms:none Medication Reconciliation: from medication list. Wiphoivctwr21-04-8105: Echocardiogram technically difficult study. Unable to determine [...] specific medication. Rate control: controlled ventricular response [id number] Criteria: Age 65-74 for embolic phenomenon. Anticoagulation: [...] 2021-04 PNEUMOVAX(X) 2021-05 COVID BOOSTER MODERNA Surgical Horwlee4113-18 Left Great Toe Llzzwsbxkx0231-81 Right Femoral Popliteal Uhobd5382-34 Superficial Femoral Artery Bilateral Bohnbjzdma8980-37 Left Carotid Zydzeawnkcpnmk8022-54 Rt. Neck Surgery Preventative Testing( ) 03/26/2024 [...] one from CAD Bryon Cordoba MD [address] [facility], [facility] [address], [place], [address], [place] [employer] 09/24/2024 10:55:35
== END 2025-01-09 07:20 | disposition home or self-care (01) ==
PROVIDERS: PCP Internal Medicine; Visit Provider Internal Medicine Pulmonary Disease
DX: Z12.2 Encounter for screening for malignant neoplasm of respiratory organs (principal); Z87.891 Personal history of nicotine dependence
CPT/HCPCS: 71271